=== PATIENT | female | born 1950 | race Caucasian/White ===

== ENCOUNTER → 2023-08-27 08:38 | Outpatient (REF) | payer MEDICARE, SELFPAY ==
[2023-08-27 09:28] LABS: % Basophils 0.7 % (0-2); % Eosinophils 3.1 % (0-6); % Immature Granulocytes 0.6 % (0-0.5); % Lymphocytes 24.6 % (20.5-51.1); % Monocytes 4.5 % (1.7-9.3); % Neutrophils 66.5 % (42.2-75.2); Absolute Basophils 0.1 10^3/uL (0-0.2); Absolute Eosinophils 0.3 10^3/uL (0-0.7); Absolute Immature Granulocytes 0.1 10^3/uL (0-0.05); Absolute Lymphocytes 2.2 10^3/uL (1.2-3.4); Absolute Monocytes 0.4 10^3/uL (0.1-0.6); Absolute Neutrophils 5.8 10^3/uL (1.4-6.5); Hemoglobin 11.8 g/dL (12.0-16.0); Mean Corp Hgb Conc. 32.8 g/dL (33.0-37.0); Mean Corpuscular Hgb 29.6 pg (27.0-31.0); Mean Corpuscular Volume 90.2 fL (81.0-99.0); Mean Platelet Volume 9.8 fL (7.4-10.4); Nucleated Red Blood Cells % 0 %; Platelet Count 267 10^3/uL (130-400); Red Blood Cell Count 3.99 10^6/uL (4.20-5.40); Red Cell Dist. Width 13.5 % (11.5-14.5); White Blood Cell Count 8.7 10^3/uL (4.8-10.8)
[2023-08-27 12:44] LABS: ALT (SGPT) 15 U/L (0-35); AST (SGOT) 26 U/L (14-36); Albumin 4.6 g/dl (3.5-5.0); Alkaline Phosphatase 96 U/L (38-126); Blood Urea Nitrogen 20 mg/dl (7-17); Calcium 9.4 mg/dl (8.4-10.2); Carbon Dioxide 31 mmol/L (22-30); Chloride 95 mmol/L (98-107); Glucose 110 mg/dl (70-99); HDL Cholesterol 44 mg/dl; LDL Cholesterol, Calculated 140 mg/dl; Potassium 4.1 mmol/L (3.5-5.1); Sodium 137 mmol/L (135-145); Total Bilirubin 0.7 mg/dl (0.2-1.3); Total Cholesterol 253 mg/dl (50-199); Total Protein 7.3 g/dl (6.3-8.2); Triglyceride 347 mg/dl (10-149); Very Low Density Lipoprotein 69 mg/dl (0-30); eGFR 59.49
== END ==
LOC: REG 08:38
PROVIDERS: ATTENDING PHYSICIAN Internal Medicine
DX: I10 Essential (primary) hypertension (principal); E78.5 Hyperlipidemia, unspecified; E53.8 Deficiency of other specified B group vitamins; Z68.33 Body mass index [BMI] 33.0-33.9, adult; Z00.01 Encounter for general adult medical examination with abnormal findings
CPT/HCPCS: 36415; 80053; 80061; 85025

== ENCOUNTER 2024-02-07 10:26 | Emergency (ER) | payer MEDICARE, SELFPAY ==
[2024-02-07 10:28] VITALS: BP 158/111
[2024-02-07] MEDS: TORADOL 30 MG IM (12:00)
[2024-02-07 12:06] VITALS: BP 141/81
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
[2024-02-07 14:18] VITALS: BP 133/72; BMI 30.1
[2024-02-07 15:22] VITALS: BP 144/83
[2024-02-07 15:36] VITALS: BP 144/83
== END 2024-02-07 15:37 | disposition home or self-care (01) ==
LOC: EMR 10:26
PROVIDERS: EMERGENCY PHYSICIAN Emergency Medicine; FAMILY PHYSICIAN Internal Medicine
DX: S43.402A Unspecified sprain of left shoulder joint, initial encounter (principal); W19.XXXA Unspecified fall, initial encounter; I10 Essential (primary) hypertension; Z90.49 Acquired absence of other specified parts of digestive tract
CPT/HCPCS: 99283; 96372; 73030

== ENCOUNTER 2024-02-09 23:27 | Inpatient (IN) | payer MEDICARE, SELFPAY ==
[2024-02-09 19:37] VITALS: BP 90/59
--- NOTE | 2024-02-09 19:38 | ED.GENMED ---
History of Present Illness
<SHAKEEL Bae - Last Filed: 02/10/24 00:42>
General
Chief Complaint: Weakness
Source: patient
Time Seen by Provider: 02/09/24 19:36
Nursing documentation reviewed up to this point in time: agreed with
History of Present Illness
History of Present Illness:
Patient is a 73 year old female with a PMH of RSD lower back arthritis and HTN presents to the ED with complaints of lower extremity weakness x 12 hours. She states this morning when she woke up feeling weak and not able to stand. Shortly after
while walking to the bathroom she got dizzy her legs gave out and she fell. She denies hitting her head and is not on blood thinners. Something like this has never happened before. She lost continence while she fell but states she hasn't been
incontinent since. Denies hematuria dysuria and urinary frequency. She admits to random lower extremity spasms throughout the day. Nothing exacerbates it and describes it as a twitching sensation in both of her legs. She also has mild tingling in
her feet. Patient denies chest pain palpitations sob headache nausea saddle anesthesia.
Patient has a history of RSD HTN and chronic lumbar arthritis which she takes medication for. She denies any alcohol or tobacco use.
Past History
<SHAKEEL Bae - Last Filed: 02/10/24 00:42>
Past History
ED Past Medical History: HTN and Other (RSD)
ED Past Surgical History: Appendectomy, Cholecystectomy, Tonsilectomy and Other
Social History
Tobacco: Non-smoker
Alcohol: None
Drug: None
Personal:
Living: with family
Employment: Retired
Review of Systems
<SHAKEEL Bae - Last Filed: 02/10/24 00:42>
Review of Systems
Constitutional: Reports no symptoms
Respiratory: Reports no symptoms
Cardiac: Reports no symptoms
ABD/GI: Reports no symptoms
: Reports incontinence
Musculoskeletal: Reports back pain
Neurological: Reports dizzy and weakness
Phy Exam
<RupeshSHAKEEL Frey - Last Filed: 02/10/24 00:42>
General Physical Exam
General Presentation: well appearing
General age: appears stated age
General Habitus: normal
General Mental: alert
Cardiovascular Exam
Cardiovascular Exam: regular rate/rhythm, no edema, no gallop, no JVD and no murmur
Pulmonary Exam
Pulmonary Exam: lungs clear, no respiratory distress, no rales, chest non tender, no crackles, no rhonchi, no stridor, no wheezing, no cough and decreased breath sounds
Sensory
Sensory Exam: intact (sensation intact to light touch in lower extremities b/l)
Musculoskeletal Exam
Musculoskeletal Exam: back pain and other (swelling in both feet, no pitting edema )
Course
<SHAKEEL Bae - Last Filed: 02/10/24 00:42>
Orders/Labs/Results
Orders:
Orders
02/09/24 19:51
Electrocardiogram (*1) Urgent
Reason for Study: Fatigue / Weakness
EKG- Treatment ONCE
02/09/24 19:59
Complete Blood Count/With Diff Urgent
Comprehensive Metabolic Panel Urgent
02/09/24 20:37
0.9% Sodium Chloride 1000 ml [Nss] 1,000 ml IV BOLUS
02/09/24 21:53
MR Lumbar Without Contrast Urgent
Comment:
Reason For Exam: LBP, Amb Dysfxn, Urinary Incont
Recent pill cam endoscopy?: No
02/09/24 21:57
Urinalysis Reflex To Culture Urgent
CXR2 [CR Chest - 2 Views ] Urgent
Comment:
Reason For Exam: Hypoxemia
02/09/24 23:04
Admit/Transfer Patient As Directed
Co-Sign Provider:
Level of Care: Inpatient admission
Assign to:: Telemetry
Physician / Group: Ras
Diagnosis: DANYEL, Metabolic Acidosis
Reason for Telemetry: Arrhythmia
Date to Stop Telemetry: 02/12/24
Time to Stop Telemetry: 11:00
Reason for Hospitalization: DANYEL, Metabolic Acidosis
Expected length of stay greater than two midnights?: Yes
ELOS- Estimated Length of Stay in days: 3
I certify the patient meets the requirements for IP care: Yes
PRN Pain Medication Management As Directed
May give lesser potent ordered pain med per pt: Yes
preference::
Protocol:: Medication orders for pain may be administered in a
manner that supports deferring to patient preference
when the pt is:
- Requesting an ordered lesser potent pain medication.
Least to most potent pain medications are defined
as: acetaminophen < NSAID < tramadol < opioids
(morphine, oxycodone, hydromorphone).
- Requesting a lesser dose of the same medication IF
ORDERED.
- Requesting a less intrusive route of administration
if both routes are prescribed by the provider (PO <
IV).
02/09/24 23:06
Code Status As Directed
Resuscitation Status: Full Code
02/09/24 23:12
Oxycodone [Roxicodone] 5 mg PO Q8HPRN PRN
02/09/24 23:56
Lactic Acid Urgent
02/10/24 00:31
0.9% Sodium Chloride 1000 ml [Nss] 1,000 ml IV 100 mls/hr
Polyethylene Glycol Powder [Miralax] 17 grams PO DAILY PRN
02/10/24 00:31
TSH Reflex To Free T4 Routine
Activity As Directed
Activity Level: Ambulate
With Assistance
Bladder Scan As Directed
Follow Bladder Retention/Intermittent Cath Algorithm?: Yes
PRN if no void in __ hours: 6
Frequency: Per Retention Algorithm
If Bladder Scan Result >: 400
then:: Straight cath
EKG with chest pain [ECG as needed] As Directed
ECG as needed for:: Chest Pain
I/O [Intake/ Output] As Directed
Frequency: Per unit guidelines
Neurological Checks As Directed
Frequency: q4h
Orthostatic Vital Signs As Directed
Orthostatic VS Frequency: BID
Straight Cath As Directed
Frequency: Per Retention Algorithm
Additional Instructions: straight cath as needed per acute urinary retention algorithm for 24 hrs
Additional Instructions: for bladder scan greater than 400 mL
Vital Signs As Directed
Frequency: Per unit guidelines
Weight As Directed
Frequency: Daily
Incentive Spirometry [Rx Incentive Spirometry] [RESP] Routine
Frequency: q1h while awake
Oxygen Therapy [O2 Therapy] [RESP] Routine
Titrate/Wean O2 to maintain O2 sat greater than (%): 94
Ot Eval And Treat Routine
PT Consult [Pt Eval And Treat] Routine
Activity Level: Ambulate
With Assistance
DX Deep Vein Thrombosis Video Routine
02/10/24 Breakfast
Regular
Basic Metabolic Panel IN AM
Complete Blood Count/No Diff IN AM
Magnesium IN AM
Phosphorus IN AM
02/10/24 08:00
Acetaminophen [Tylenol] 1,000 mg PO TID
Docusate Sodium [Colace] 100 mg PO BID
Oxycodone Controlled Release [Oxycontin (Controlled Release)] 20 mg PO TID
02/10/24 18:00
Enoxaparin Sodium [Lovenox] 40 mg SC QPM
02/10/24 22:00
Amitriptyline [Elavil] 50 mg PO HS
Sennosides [Senokot] 17.2 mg PO HS
02/12/24 11:00
DC Protocol for Telemetry ONCE
Abnormal Lab Results
02/09/24
19:59
WBC 16.3 H 10^3/uL
(4.8-10.8)
RBC 3.86 L 10^6/uL
(4.20-5.40)
Hgb 11.5 L g/dL
(12.0-16.0)
Hct 34.2 L %
(37.0-47.0)
Abs Immat Gran (auto) 0.1 H 10^3/uL
(0-0.05)
Absolute Neuts (auto) 13.5 H 10^3/uL
(1.4-6.5)
Absolute Monos (auto) 0.8 H 10^3/uL
(0.1-0.6)
Neutrophils % 82.7 H %
(42.2-75.2)
Lymphocytes % 9.7 L %
(20.5-51.1)
Chloride 95 L mmol/L
(98-107)
BUN 57 H mg/dl
(7-17)
Creatinine 4.1 H* mg/dL
(0.6-1.0)
Glucose 125 H mg/dl
(70-99)
AST 111 H U/L
(14-36)
02/09/24 19:59
02/09/24 19:59
Vital Signs
Initial and Last Documented VS:
Initial Vital Signs
Temp Pulse Resp BP Pulse Ox
98.9 F 91 16 90/59 88
02/09/24 19:37 02/09/24 19:37 02/09/24 19:37 02/09/24 19:37 02/09/24 19:37
Last Documented Vital Signs
Temp Pulse Resp BP Pulse Ox
99.5 F 86 17 116/65 98
02/10/24 00:33 02/10/24 00:33 02/10/24 00:33 02/10/24 00:33 02/10/24 00:33
<Alvaro Overton, - Last Filed: 02/09/24 22:00>
Orders/Labs/Results
Orders:
Orders
02/09/24 19:51
Electrocardiogram (*1) Urgent
Reason for Study: Fatigue / Weakness
EKG- Treatment ONCE
02/09/24 19:59
Complete Blood Count/With Diff Urgent
Comprehensive Metabolic Panel Urgent
02/09/24 20:37
0.9% Sodium Chloride 1000 ml [Nss] 1,000 ml IV BOLUS
02/09/24 21:53
MR Lumbar Without Contrast Urgent
Comment:
Reason For Exam: LBP, Amb Dysfxn, Urinary Incont
Recent pill cam endoscopy?: No
02/09/24 21:57
Urinalysis Reflex To Culture Urgent
CXR2 [CR Chest - 2 Views ] Urgent
Comment:
Reason For Exam: Hypoxemia
02/09/24 23:04
Admit/Transfer Patient As Directed
Co-Sign Provider:
Level of Care: Inpatient admission
Assign to:: Telemetry
Physician / Group: Ras
Diagnosis: DANYEL, Metabolic Acidosis
Reason for Telemetry: Arrhythmia
Date to Stop Telemetry: 02/12/24
Time to Stop Telemetry: 11:00
Reason for Hospitalization: DANYEL, Metabolic Acidosis
Expected length of stay greater than two midnights?: Yes
ELOS- Estimated Length of Stay in days: 3
I certify the patient meets the requirements for IP care: Yes
PRN Pain Medication Management As Directed
May give lesser potent ordered pain med per pt: Yes
preference::
Protocol:: Medication orders for pain may be administered in a
manner that supports deferring to patient preference
when the pt is:
- Requesting an ordered lesser potent pain medication.
Least to most potent pain medications are defined
as: acetaminophen < NSAID < tramadol < opioids
(morphine, oxycodone, hydromorphone).
- Requesting a lesser dose of the same medication IF
ORDERED.
- Requesting a less intrusive route of administration
if both routes are prescribed by the provider (PO <
IV).
02/09/24 23:06
Code Status As Directed
Resuscitation Status: Full Code
02/09/24 23:12
Oxycodone [Roxicodone] 5 mg PO Q8HPRN PRN
02/09/24 23:56
Lactic Acid Urgent
02/10/24 00:31
0.9% Sodium Chloride 1000 ml [Nss] 1,000 ml IV 100 mls/hr
Polyethylene Glycol Powder [Miralax] 17 grams PO DAILY PRN
02/10/24 00:31
TSH Reflex To Free T4 Routine
Activity As Directed
Activity Level: Ambulate
With Assistance
Bladder Scan As Directed
Follow Bladder Retention/Intermittent Cath Algorithm?: Yes
PRN if no void in __ hours: 6
Frequency: Per Retention Algorithm
If Bladder Scan Result >: 400
then:: Straight cath
EKG with chest pain [ECG as needed] As Directed
ECG as needed for:: Chest Pain
I/O [Intake/ Output] As Directed
Frequency: Per unit guidelines
Neurological Checks As Directed
Frequency: q4h
Orthostatic Vital Signs As Directed
Orthostatic VS Frequency: BID
Straight Cath As Directed
Frequency: Per Retention Algorithm
Additional Instructions: straight cath as needed per acute urinary retention algorithm for 24 hrs
Additional Instructions: for bladder scan greater than 400 mL
Vital Signs As Directed
Frequency: Per unit guidelines
Weight As Directed
Frequency: Daily
Incentive Spirometry [Rx Incentive Spirometry] [RESP] Routine
Frequency: q1h while awake
Oxygen Therapy [O2 Therapy] [RESP] Routine
Titrate/Wean O2 to maintain O2 sat greater than (%): 94
Ot Eval And Treat Routine
PT Consult [Pt Eval And Treat] Routine
Activity Level: Ambulate
With Assistance
DX Deep Vein Thrombosis Video Routine
02/10/24 Breakfast
Regular
Basic Metabolic Panel IN AM
Complete Blood Count/No Diff IN AM
Magnesium IN AM
Phosphorus IN AM
02/10/24 08:00
Acetaminophen [Tylenol] 1,000 mg PO TID
Docusate Sodium [Colace] 100 mg PO BID
Oxycodone Controlled Release [Oxycontin (Controlled Release)] 20 mg PO TID
02/10/24 18:00
Enoxaparin Sodium [Lovenox] 40 mg SC QPM
02/10/24 22:00
Amitriptyline [Elavil] 50 mg PO HS
Sennosides [Senokot] 17.2 mg PO HS
02/12/24 11:00
DC Protocol for Telemetry ONCE
Abnormal Lab Results
02/09/24
19:59
WBC 16.3 H 10^3/uL
(4.8-10.8)
RBC 3.86 L 10^6/uL
(4.20-5.40)
Hgb 11.5 L g/dL
(12.0-16.0)
Hct 34.2 L %
(37.0-47.0)
Abs Immat Gran (auto) 0.1 H 10^3/uL
(0-0.05)
Absolute Neuts (auto) 13.5 H 10^3/uL
(1.4-6.5)
Absolute Monos (auto) 0.8 H 10^3/uL
(0.1-0.6)
Neutrophils % 82.7 H %
(42.2-75.2)
Lymphocytes % 9.7 L %
(20.5-51.1)
Chloride 95 L mmol/L
(98-107)
BUN 57 H mg/dl
(7-17)
Creatinine 4.1 H* mg/dL
(0.6-1.0)
Glucose 125 H mg/dl
(70-99)
AST 111 H U/L
(14-36)
02/09/24 19:59
02/09/24 19:59
Vital Signs
Initial and Last Documented VS:
Initial Vital Signs
Temp Pulse Resp BP Pulse Ox
98.9 F 91 16 90/59 88
02/09/24 19:37 02/09/24 19:37 02/09/24 19:37 02/09/24 19:37 02/09/24 19:37
Last Documented Vital Signs
Temp Pulse Resp BP Pulse Ox
99.5 F 86 17 116/65 98
02/10/24 00:33 02/10/24 00:33 02/10/24 00:33 02/10/24 00:33 02/10/24 00:33
<SHAKEEL Bae - Last Filed: 02/10/24 00:42>
MDM/Problems Addressed
Differential Diagnosis Includes:
RSD exacerbation, kidney failure, PAD, MS, arthritis, dehydration, cauda equina
MDM/Problems Addressed:
order labs, monitor symptoms
<SHAKEEL Bae - Last Filed: 02/10/24 00:42>
*Critical Care Note
Total Time (30-74mins, 75-104mins- exclusive of procedures): Not Applicable
ED Attending Note
<SHAKEEL Bae - Last Filed: 02/10/24 00:42>
-
Portions of this chart may have been created with voice recognition software.� Occasional wrong word or��sound alike� substitutions may have occurred due to the inherent limitations of voice recognition software.
<Alvaro Overton DO - Last Filed: 02/09/24 22:00>
ED Attending Note
Patient seen and examined by attending physician: Yes
I performed the substantive portion of visit, reviewed & personally made and approve the management plan that is documented in note by myself or PEPE.: Yes
ED Attending Note:
Pleasant 73-year-old female presents to the emergency department with increased weakness and inability to walk. Patient has had lower back pain since age 11. She states that she has had exacerbation of low back pain for the last week. Patient
started to fall this morning due to the weakness but was able to prevent the fall. She is concerned because she awakened with urinary incontinence this morning. Denies fever, chills, nausea or vomiting. Patient was seen in conjunction with the PA
student. I have reviewed and agree with the history and treatment plan presented. On my independent physical exam, patient is awake, alert, and oriented x3. Minimal acute distress distressed while at rest. With movement she has increased low
back pain. Rectal exam performed in the presence of female nursing had good rectal tone.
Spoke with Dr. Geovani Ariza regarding MRI. He agreed with the need for an MRI. MRI of the lumbar spine without IV contrast ordered. Without IV contrast because patient did not have previous history of spinal surgery.
Discharge Plan
Departure
Patient Disposition: Admit
Date of Disposition: 02/09/24
Time of Disposition: 21:57
Presentation/result/management discussed w/ accepting MD/DO: Hospitalist
Patient with high blood pressure during this ER visit?: Yes
Condition: Fair
Discharge Problem:
Low back pain, Acute renal failure (ARF), Weakness, Ambulatory dysfunction
Interventions
Interventions:
*Risk Screen - Suicide Last Done: 02/09/24 19:37
*General Assessment Last Done: 02/09/24 19:37
*Neglect/Abuse Screening Last Done: 02/09/24 19:37
ED- Fall Risk Assessment Last Done: 02/09/24 19:48
*ED COVID-19 Vaccine History Last Done: 02/09/24 19:37
*Nursing Disposition Last Done: 02/10/24 00:24
ED- Cardiac Assessment Last Done: 02/09/24 19:48
ED-Musculoskeletal Assessment Last Done: 02/09/24 19:48
ED- Neurological Assessment Last Done: 02/09/24 19:48
ED- Pulmonary Assessment Last Done: 02/09/24 19:48
Discharge Date and Time
Discharge Date/Time: 02/10/24 00:24
[2024-02-09 19:41] VITALS: BP 90/59
[2024-02-09 19:50] VITALS: BMI 33.7
[2024-02-09 20:01] VITALS: BP 93/61
[2024-02-09 20:05] LABS: % Basophils 0.5 % (0-2); % Eosinophils 1.6 % (0-6); % Immature Granulocytes 0.4 % (0-0.5); % Lymphocytes 9.7 % (20.5-51.1); % Monocytes 5.1 % (1.7-9.3); % Neutrophils 82.7 % (42.2-75.2); Absolute Basophils 0.1 10^3/uL (0-0.2); Absolute Eosinophils 0.3 10^3/uL (0-0.7); Absolute Immature Granulocytes 0.1 10^3/uL (0-0.05); Absolute Lymphocytes 1.6 10^3/uL (1.2-3.4); Absolute Monocytes 0.8 10^3/uL (0.1-0.6); Absolute Neutrophils 13.5 10^3/uL (1.4-6.5); Hematocrit 34.2 % (37.0-47.0); Hemoglobin 11.5 g/dL (12.0-16.0); Mean Corp Hgb Conc. 33.6 g/dL (33.0-37.0); Mean Corpuscular Hgb 29.8 pg (27.0-31.0); Mean Corpuscular Volume 88.6 fL (81.0-99.0); Mean Platelet Volume 10.1 fL (7.4-10.4); Nucleated Red Blood Cells % 0 %; Platelet Count 246 10^3/uL (130-400); Red Blood Cell Count 3.86 10^6/uL (4.20-5.40); Red Cell Dist. Width 13.7 % (11.5-14.5); White Blood Cell Count 16.3 10^3/uL (4.8-10.8)
[2024-02-09 20:23] LABS: ALT (SGPT) 33 U/L (0-35); AST (SGOT) 111 U/L (14-36); Albumin 4.7 g/dl (3.5-5.0); Alkaline Phosphatase 108 U/L (38-126); Blood Urea Nitrogen 57 mg/dl (7-17); Calcium 8.7 mg/dl (8.4-10.2); Carbon Dioxide 23 mmol/L (22-30); Chloride 95 mmol/L (98-107); Estimated Creatinine Clearance 14 ml/min; Glucose 125 mg/dl (70-99); Potassium 4.2 mmol/L (3.5-5.1); Sodium 139 mmol/L (135-145); Total Bilirubin 0.9 mg/dl (0.2-1.3); Total Protein 7.2 g/dl (6.3-8.2); eGFR 10.87
[2024-02-09 21:00] VITALS: BP 103/64
[2024-02-09] MEDS: NSS 1000 IV (21:01)
[2024-02-09 22:00] VITALS: BP 98/50
--- NOTE | 2024-02-09 22:19 | HPS.HSE ---
Family Physician
-
Family Physician: Marlon Hooks
Chief Complaint
-
Fall / Weakness
History of Present Illness
Patient is a 73y F with PMH significant for reflex sympathetic dystrophy, chronic opioid dependence and history of breast cancer who presents to ED complaining of weakness and fall at home. History obtained from patient and her at home.
Patient was seen in the ED here on Saturday after fall at home in which she injured her L shoulder. Evaluation was unremarkable at that time and patient was discharged to home with a prescription for diclofenac which she has been taking twice daily
since that time. This evening patient stood to go to the bathroom and was assisting her. He had difficulty getting a good hold on her due to her chronic RUE pain and her new L shoulder pain.
states that patient became 'spastic' and 'started shaking' and he could not hold her. She fell backwards and landed on her buttocks. She did not strike her head. She did not lose consciousness.
was unable to help her back up and EMS was called.
In the ED, patient continues to complain of intermittent spasms. She complains of chronic pain in the R hand and the low back - not significantly changed from her baseline.
She denies any new medication - other than the diclofenac.
Patient denies any recent symptoms of illness including fever / chills, cough / SOB, N/V/D or dysuria.
Patient has been unable to void since presentation to the ED. She denies any prior issues with incontinence.
Medical History
Past Medical History
Past Medical History: Reports Other
Additional Past Medical History:
Reflex Sympathetic Dystrophy
Chronic Pain Syndrome
Chronic Opioid Dependence
Breast Cancer s/p Mastectomy
Chronic RUE Lymphedema
Chronic Back Pain
Hypertension
Anxiety / Depression
Gout
Past Surgical History: Reports Other
Additional Past Surgical History:
Right Mastectomy / Axillary Dissection
Cholecystectomy
Appendectomy
T&A
Social History
Tobacco: Non-smoker
Alcohol: None
Drug: None
Personal:
Living: With Family
Family History
Family History: Not pertinent
Allergies / Home Medications
Allergies reflects when Allergies were last updated in [facility].
Home Medications with original date entered in [facility]
Allergy/Medication List:
Allergies
Allergy/AdvReac Type Severity Reaction Status Date / Time
nortriptyline HCl Allergy Tongue Verified 02/09/24 19:37
[From Pamelor] Swelling
Home Medications
acebutolol 200 mg capsule 200 mg PO TID Heart disease/condition 08/18/22
allopurinol 100 mg tablet 100 mg PO DAILY Gout 08/18/22
levocetirizine 5 mg tablet (Xyzal) 5 mg PO DAILY PRN allergies 08/18/22
amitriptyline 100 mg tablet 100 mg PO HS Mental Health/Anxiety 02/12/23
amoxicillin 500 mg capsule 500 mg PO TID Infection 02/12/23
cyanocobalamin (vitamin B-12) 1,000 mcg/mL injection solution 1,000 mcg SC MONTHLY Supplement 02/12/23
ergocalciferol (vitamin D2) 1,250 mcg (50,000 unit) capsule 1,250 mcg PO WE Supplement 02/12/23
furosemide 40 mg tablet 40 mg PO BID Fluid Retention/Swelling 02/12/23
gabapentin 300 mg capsule 300 mg PO TID Pain 02/12/23
oxycodone 20 mg tablet,crush resistant,extended release 12 hr (OxyContin) 20 mg PO TID Pain 02/12/23
oxycodone-acetaminophen 10 mg-325 mg tablet 1 tab PO Q8H PRN breakthrough pain 02/12/23
zolpidem 10 mg tablet 10 mg PO HS PRN sleep 02/12/23
diclofenac sodium 75 mg tablet,delayed release 75 mg PO BID #14 tabs 02/07/24
Patient is unable to confirm all current meds / doses.
States 'Its the same as in the computer. Nothing is changed.'
Review of Systems
-
History Source: Patient
A 12 point ROS was completed and negative except as noted: Yes
Constitutional: Reports Fatigue; Denies Fever or Chills
EENT: Denies Sore Throat
Respiratory: Denies Cough or Trouble Breathing
Cardiac: Denies Chest Pain or Palpitations
Abdomen/GI: Denies Abdominal Pain, Nausea, Vomiting or Diarrhea
: Reports Incontinence (Woke this AM incontinent. Unable to void this evening.); Denies Dysuria or Frequency
Musculoskeletal: Reports Joint Pain, Edema and Other (Spasms)
Neurological: Reports Weakness; Denies Dizzy or Numbness
Physical Exam
Vital Signs
Vital Signs
Temp Pulse Resp BP Pulse Ox
98.9 F 81 19 103/64 98
02/09/24 19:37 02/09/24 21:45 02/09/24 21:45 02/09/24 21:00 02/09/24 21:45
Physical Exam
General: Other (73y F in no acute distress.)
HEENT: Moist mucous membranes and PERRLA
Respiratory: Other (Decreased at bases - otherwise clear.)
Cardiac: S1/S2 and Regular Rhythm; No Murmur
GI: Soft, Non Tender, Non Distended and Normal Bowel Sounds
Musculoskeletal: No Clubbing, No Cyanosis and Other (2+ pitting edema b/l LEs and RUE. Compression glove in place over the R hand.)
Neuro: AO x 3 and Other (Generalized weakness. No focal deficits.)
Laboratory Results
-
02/09/24 19:59
02/09/24 19:59
Laboratory Results
Total Bilirubin 0.9 mg/dl (0.2-1.3) 02/09/24 19:59
AST 111 U/L (14-36) H 02/09/24 19:59
ALT 33 U/L (0-35) 02/09/24 19:59
Alkaline Phosphatase 108 U/L (38-126) 02/09/24 19:59
Impression/Plan
-
A/P: Patient is a 73y F with PMH significant for chronic pain / RSD who presents to ED for evaluation s/p fall at home this evening.
DANYEL
Anion Gap Metabolic Acidosis
- Admit for further evaluation and treatment.
- Patient presents with SCR = 4.1 compared to baseline of 1.0.
- Suspect DANYEL due to NSAID use and volume depletion / prerenal azotemia.
- Hold further NSAIDs and other nephrotoxic agents.
- IVF support overnight / avoid hypotension.
- Bladder scan protocol and cath / Alexandra if evidence of retention.
- Anion gap on admission = 21.
- Check lactate. IVFs as noted above.
- Follow for improvement / return to baseline renal function.
Acute Hypoxemic Respiratory Insufficiency
- Unclear etiology. CXR with elevated R hemidiaphragm. No focal infiltrates.
- No acute / recent respiratory complaints and patient denies any cough / dyspnea.
- ? med effect due to increased pain meds after recent fall.
- Minimize sedating meds as able.
- O2 support as needed.
- Incentive spirometry.
- Follow for any new / worsening symptoms.
Weakness / Fall at Home
Spasticity
- ? etiology of new / worsened symptoms.
- No focal weakness appreciated on exam.
- Doubt cauda equina with good rectal tone, etc.
- MRI L-spine pending for later this AM.
- Follow for any new complaints, etc.
- PT / OT evaluations.
- Avoid sedating meds as noted above.
Leukocytosis
- ? stress response versus volume depletion versus other.
- Afebrile and without any acute infectious symptoms.
- Observe off of abx for now.
- Follow temperature curve, etc.
RSD
Chronic Pain Syndrome
Chronic Opioid Dependence
- Typical pain in R hand and low back per patient.
- Recent increase in pain in the L shoulder after fall 02/06.
- Continue chronic pain meds - but attempt to decrease dose / frequency given relative hypotension, weakness, etc.
- Follow-up with usual Pain Management as an outpatient.
DVT Prophylaxis: Lovenox
Code Status: Full
[2024-02-09 23:10] VITALS: BP 93/56
[2024-02-09] MEDS: ROXICODONE 5 MG PO (23:17)
[2024-02-10] VITALS (13 sets, daily range): BP systolic 88–140; BP diastolic 47–77; PULSE 75–100; O2SAT 95; BMI 34.3; BMI 34.2
[2024-02-10 00:16] LABS: Lactic Acid 0.7 mmol/L (0.7-2.0)
[2024-02-10] MEDS: NSS 1000 IV ×3 (00:40→23:17)
--- NOTE | 2024-02-10 02:00 | PTCARENOTE ---
Pt arrived on 2S at 00:15 dx DANYEL Metabolic Acidosis. PMH Chronic Back Pain, HTN, UTI, Ambulatory Dysfunction, Breast Cancer, RSD of Right hand with HUSSAIN restriction. Pt unable to urinate in bedpan. Pt stood by the bed with a rolling walker for Ortho
V/S with difficulty. Pt Aox3, but forgetful. Pt's bed ia in a low position & call light in reach.
[2024-02-10 03:09] LABS: Urine Albumin Trace (Neg - Trace); Urine Bilirubin 1+ (Negative); Urine Character Clear (Clear); Urine Color Yellow; Urine Glucose Negative (Negative); Urine Ketone Trace (Negative); Urine Leukocyte Trace (Negative); Urine Nitrite Negative (Negative); Urine Occult Blood 1+ (Negative); Urine Urobilinogen 1+ (Neg - 1+)
[2024-02-10 03:26] LABS: Urine Bacteria Moderate (Negative)
[2024-02-10] MEDS: TYLENOL 650 MG PO (05:44)
[2024-02-10] MEDS: OXYCONTIN (CONTROLLED RELEASE) 20 MG PO ×3 (08:10→23:16)
[2024-02-10] MEDS: COLACE 100 MG PO ×2 (08:10→20:51)
[2024-02-10 08:13] LABS: Hematocrit 30.1 % (37.0-47.0); Hemoglobin 9.9 g/dL (12.0-16.0); Mean Corp Hgb Conc. 32.9 g/dL (33.0-37.0); Mean Corpuscular Hgb 29.6 pg (27.0-31.0); Mean Corpuscular Volume 89.9 fL (81.0-99.0); Mean Platelet Volume 10.6 fL (7.4-10.4); Platelet Count 211 10^3/uL (130-400); Red Blood Cell Count 3.35 10^6/uL (4.20-5.40); Red Cell Dist. Width 13.4 % (11.5-14.5); White Blood Cell Count 13.4 10^3/uL (4.8-10.8)
[2024-02-10 08:34] LABS: Blood Urea Nitrogen 53 mg/dl (7-17); Calcium 7.7 mg/dl (8.4-10.2); Carbon Dioxide 27 mmol/L (22-30); Chloride 99 mmol/L (98-107); Estimated Creatinine Clearance 20 ml/min; Glucose 94 mg/dl (70-99); Magnesium 2.3 mg/dl (1.6-2.3); Phosphorus 4.1 mg/dl (2.5-4.5); Potassium 3.9 mmol/L (3.5-5.1); Sodium 139 mmol/L (135-145); eGFR 17.18
[2024-02-10 09:05] LABS: TSH Reflex To Free T4 1.54 uIU/ml (0.47-4.68)
[2024-02-10] MEDS: TYLENOL 1000 MG PO ×3 (09:44→22:33)
[2024-02-10 10:24] LABS: Urine Sodium 13 mmol/L (30-90)
--- NOTE | 2024-02-10 11:56 | W.PN.HOSP.TC ---
Today's Communication/Plan
-
Trend Cr
IVF for today
Renal/bladder US
IV steroids
start midodrine
Assessment / Plan
Assessment / Plan
General: morbidly obese, sitting in chair,
HEENT: Moist mucous membranes and PERRLA
Respiratory: dec bs
Cardiac: S1/S2 and Regular Rhythm; No Murmur
GI: Soft, Non Tender, Non Distended and Normal Bowel Sounds
Musculoskeletal: No Clubbing, No Cyanosis and Other (2+ pitting edema b/l LEs and RUE. Compression glove in place over the R hand.)
Neuro: AO x 3 and Other (Generalized weakness. No focal deficits.)
A/P: Patient is a 73y F with PMH significant for chronic pain / RSD who presents to ED for evaluation s/p fall at home this evening.
DANYEL
Anion Gap Metabolic Acidosis
- Patient presents with SCR = 4.1 on admission. Now at 2.8 compared to baseline of 1.0.
- Hold further NSAIDs and other nephrotoxic agents.
- IVF support overnight / avoid hypotension.
- Bladder scan protocol and cath / Alexandra if evidence of retention.
- Follow for improvement / return to baseline renal function.
- Check urine studies and urine eos (none checked on admission) and Urine sample obtained while IVF
- Check renal bladder US.
- Bicarb improving-hold po bicarb
Hypotension
-started midodrine
Acute Hypoxemic Respiratory Insufficiency
- Unclear etiology. CXR with elevated R hemidiaphragm. No focal infiltrates.
- No acute / recent respiratory complaints and patient denies any cough / dyspnea.
- ? med effect due to increased pain meds after recent fall.
- Minimize sedating meds as able.
- O2 support as needed. on room air.
- Incentive spirometry.
- Follow for any new / worsening symptoms.
Weakness / Fall at Home
Spasticity
- ? etiology of new / worsened symptoms.
- No focal weakness appreciated on exam.
- Doubt cauda equina with good rectal tone, etc.
- MRI L-spine noted SEVERE ACUTE DISCOGENIC DEGENERATIVE DISEASE at L1/L2 with a moderate amount of acute bone marrow edema in the adjacent endplates and a central disc herniation causing MODERATE CENTRAL CANAL STENOSIS which has increased since
07/10/2013.
- Follow for any new complaints, etc.
- PT / OT evaluations. Recs SNF on discharge.
- Avoid sedating meds as noted above.
- Trial of steroids.
Leukocytosis
- ? stress response versus volume depletion versus other.
- Afebrile and without any acute infectious symptoms.
- Observe off of abx for now.
- Follow temperature curve, etc. WBC downtrending. afebrile
Chronic LE edema
-on lasix 40mg BID at home -on hold for now
-Sees Dr. Kraus as outpatient.
-Compression PRECIOUS therapy B/L
RSD
Chronic Pain Syndrome
Chronic Opioid Dependence
- Typical pain in R hand and low back per patient.
- Recent increase in pain in the L shoulder after fall 02/06.
- Continue chronic pain meds - but attempt to decrease dose / frequency given relative hypotension, weakness, etc.
- Follow-up with usual Pain Management as an outpatient.
DVT Prophylaxis: Lovenox
Code Status: Full
d/w with spouse at bedside in details
Anticipated Discharge: > 48 hours
Subjective/Interval History
-
Date of Service: February 10, 2024
states of severe back pain/spasms
states hx of arthritis
Objective Data
-
Labs:
Laboratory Results
02/10/24
07:42
WBC 13.4 H
Hgb 9.9 L
Hct 30.1 L
Plt Count 211
Sodium 139
Potassium 3.9
Chloride 99
Carbon Dioxide 27
BUN 53 H
Creatinine 2.8 H
Glucose 94
Calcium 7.7 L
Vital Signs:
Vital Signs
Temp Pulse Resp BP Pulse Ox
99.2 F 85 14 88/47 90
02/10/24 11:27 02/10/24 11:27 02/10/24 11:27 02/10/24 11:27 02/10/24 11:27
I&O
02/09/24 02/10/24 02/11/24
06:59 06:59 06:59
Intake Total 320 / 320
Output Total 500 / 500
Balance -180 / -180
Data Reviewed
-
Total Time Spent with Patient (in minutes): 55
[2024-02-10] MEDS: DECADRON 4 MG IV (12:34)
[2024-02-10] MEDS: ROXICODONE 5 MG PO (14:52)
[2024-02-10] MEDS: ProAmatine 5 MG PO (15:08)
[2024-02-10 15:36] LABS: Body Fluid for Eosinophils No Eosinophils seen
--- NOTE | 2024-02-10 16:13 | CM ---
Pt seen at bedside. Pt lives w/ spouse in a two story home.
Pt uses walker at home. Spouse assists with personal care and descending stairs, notes that she crawls up the stairs
SNF history, has had [facility] in the past, pt doesn't recall agency
Pt is rec SNF, CM provided PAC list. Pt stated she prefers home with PT. CM explained to pt that she is currently a 2 person assist. Pt continuing to decline as she provided care to spouse at home.
Attempted call to daughter re d/c plan. Unable to leave message, voicemail is full.
Pt was seen previously in ED on 02/06 secondary fall. [facility] protective report was made due to safety concerns in the home. Called w/ Blank ([phone]), AAA supervisor furnace process who confirmed pt remains open and following.
Plan: CM will follow up w/ daughter re d/c plan and SNF referral
--- NOTE | 2024-02-10 17:15 | PTCARENOTE ---
Telephone report given to 4E YING Apodaca @16:35, Transport brought brought to room 403 bed 1 in bed with belongings and @17:08; transported patient on telemetry, called Katelyn on 4E and requested that our conveyor monitor be returned upon her
arrival.
[2024-02-10] MEDS: ProAmatine PO (18:05)
[2024-02-10] MEDS: LOVENOX 30 MG SC (18:08)
[2024-02-10] MEDS: ELAVIL 50 MG PO (22:32)
[2024-02-10] MEDS: SENOKOT 17.2 MG PO (22:34)
[2024-02-11] VITALS (7 sets, daily range): BP systolic 138–188; BP diastolic 73–92; PULSE 82–83; BMI 35.2
[2024-02-11 07:43] LABS: % Basophils 0.2 % (0-2); % Eosinophils 0.1 % (0-6); % Lymphocytes 6.7 % (20.5-51.1); % Monocytes 1.2 % (1.7-9.3); % Neutrophils 90.8 % (42.2-75.2); Absolute Immature Granulocytes 0.1 10^3/uL (0-0.05); Absolute Lymphocytes 0.9 10^3/uL (1.2-3.4); Absolute Monocytes 0.2 10^3/uL (0.1-0.6); Hematocrit 31.3 % (37.0-47.0); Hemoglobin 10.3 g/dL (12.0-16.0); Mean Corp Hgb Conc. 32.9 g/dL (33.0-37.0); Mean Corpuscular Hgb 30.3 pg (27.0-31.0); Mean Corpuscular Volume 92.1 fL (81.0-99.0); Mean Platelet Volume 10.9 fL (7.4-10.4); Nucleated Red Blood Cells % 0 %; Platelet Count 194 10^3/uL (130-400); Red Cell Dist. Width 13.4 % (11.5-14.5); White Blood Cell Count 13.2 10^3/uL (4.8-10.8)
[2024-02-11 08:11] LABS: Blood Urea Nitrogen 41 mg/dl (7-17); Carbon Dioxide 26 mmol/L (22-30); Chloride 103 mmol/L (98-107); Estimated Creatinine Clearance 43 ml/min; Glucose 126 mg/dl (70-99); Potassium 4.5 mmol/L (3.5-5.1); Sodium 141 mmol/L (135-145); eGFR 43.15
[2024-02-11] MEDS: COLACE PO ×2 (10:30→10:41)
[2024-02-11] MEDS: OXYCONTIN (CONTROLLED RELEASE) 20 MG PO ×3 (10:30→22:31)
[2024-02-11] MEDS: TYLENOL 1000 MG PO ×3 (10:30→22:31)
[2024-02-11] MEDS: NSS IV (10:31)
[2024-02-11] MEDS: ProAmatine PO (10:31)
--- NOTE | 2024-02-11 11:38 | W.PN.HOSP.TC ---
Today's Communication/Plan
-
IV steroids trial
OOB/PT
Trend cr
observe off IVF
Assessment / Plan
Assessment / Plan
General: morbidly obese, sitting in chair,
HEENT: Moist mucous membranes and PERRLA
Respiratory: dec bs
Cardiac: S1/S2 and Regular Rhythm; No Murmur
GI: Soft, Non Tender, Non Distended and Normal Bowel Sounds
with Alexandra catheter
Musculoskeletal: No Clubbing, No Cyanosis and Other (2+ pitting edema b/l LEs and RUE. Compression glove in place over the R hand.)
Neuro: AO x 3 and Other (Generalized weakness. No focal deficits.)
A/P: Patient is a 73y F with PMH significant for chronic pain / RSD who presents to ED for evaluation s/p fall at home this evening.
DANYEL
Anion Gap Metabolic Acidosis
Left renal lesion
- Elevated creatinine likely to be multifactorial while being on diclofenac, urinary retention, diuretics
- Patient presents with SCR = 4.1 on admission. Now at 1.3 compared to baseline of 1.0.
- Hold further NSAIDs and other nephrotoxic agents.
- DC further IV fluids and observe.
- Renal bladder US with renal lesion.
- Bicarb improving-hold po bicarb
Hypotension
-started midodrine. BP stabilized and DC further midodrine.
Acute Hypoxemic Respiratory Insufficiency
- Unclear etiology. CXR with elevated R hemidiaphragm. No focal infiltrates.
- No acute / recent respiratory complaints and patient denies any cough / dyspnea.
- ? med effect due to increased pain meds after recent fall.
- Minimize sedating meds as able.
- O2 support as needed. on room air.
- Incentive spirometry.
Weakness / Fall at Home
Spasticity
- ? etiology of new / worsened symptoms.
- No focal weakness appreciated on exam.
- Doubt cauda equina with good rectal tone, etc.
- MRI L-spine noted SEVERE ACUTE DISCOGENIC DEGENERATIVE DISEASE at L1/L2 with a moderate amount of acute bone marrow edema in the adjacent endplates and a central disc herniation causing MODERATE CENTRAL CANAL STENOSIS which has increased since
07/10/2013.
- Follow for any new complaints, etc.
- PT / OT evaluations. Recs SNF on discharge.
- Avoid sedating meds as noted above.
- Trial of steroids.
Leukocytosis
- ? stress response versus volume depletion versus other.
- Afebrile and without any acute infectious symptoms.
- Observe off of abx for now.
- Follow temperature curve, etc. WBC downtrending. afebrile
Chronic LE edema
-on lasix 40mg BID at home -on hold for now
-Sees Dr. Kraus as outpatient.
-Compression PRECIOUS therapy B/L
RSD
Chronic Pain Syndrome
Chronic Opioid Dependence
- Typical pain in R hand and low back per patient.
- Recent increase in pain in the L shoulder after fall 02/06.
- Continue chronic pain meds - but attempt to decrease dose / frequency given relative hypotension, weakness, etc.
- Follow-up with usual Pain Management as an outpatient.
DVT Prophylaxis: Lovenox
Code Status: Full
d/w with daughter at bedside in details
PT/OT-SNF. Cm aware.
Anticipated Discharge: > 48 hours
Subjective/Interval History
-
Date of Service: February 11, 2024
Overlapping urinary retention requiring Alexandra catheter placement
Objective Data
-
Labs:
Laboratory Results
02/11/24
06:26
WBC 13.2 H
Hgb 10.3 L
Hct 31.3 L
Plt Count 194
Sodium 141
Potassium 4.5
Chloride 103
Carbon Dioxide 26
BUN 41 H
Creatinine 1.3 H
Glucose 126 H
Calcium 8.0 L
Vital Signs:
Vital Signs
Temp Pulse Resp BP Pulse Ox
98.6 F 76 22 150/91 92
02/11/24 07:07 02/11/24 07:07 02/11/24 07:07 02/11/24 07:07 02/11/24 07:07
I&O
02/10/24 02/11/24 02/12/24
06:59 06:59 06:59
Intake Total 320 / 320 700 / 700
Output Total 500 / 500 1160 / 1160
Balance -180 / -180 -460 / -460
Data Reviewed
-
Total Time Spent with Patient (in minutes): 56
[2024-02-11] MEDS: FLUSH (NSS) 2 FLUSH IV (13:32)
[2024-02-11] MEDS: DECADRON 4 MG IV ×2 (13:32)
--- NOTE | 2024-02-11 17:41 | CM ---
Pt seen by Johanna EASLEY and pastoral care. See previous CM note.
Spoke with pt in room .
[id number] PT OT evals with pt .
She is unsure of SNF at dc.
She will review SNF with dgt and will revisit tomorrow.
PLAN DC plan ongoing PT OT indicate SNF.
[2024-02-11] MEDS: LOVENOX 30 MG SC (17:59)
[2024-02-11] MEDS: COLACE 100 MG PO (20:33)
[2024-02-11] MEDS: SENOKOT 17.2 MG PO (22:31)
[2024-02-11] MEDS: ELAVIL 50 MG PO (22:31)
[2024-02-12] VITALS (8 sets, daily range): BP systolic 155–186; BP diastolic 80–102; PULSE 77–80; O2SAT 93; BMI 34.8
[2024-02-12] MEDS: DECADRON 4 MG IV (00:01)
[2024-02-12] MEDS: MIRALAX 17 GRAMS PO (00:22)
[2024-02-12] MEDS: ROXICODONE 5 MG PO (03:55)
--- NOTE | 2024-02-12 06:22 | PTCARENOTE ---
Pt aaox3,forgetful at times only, able to make her needs known. Fall precautions maintained.PIN DRAFTER OPERATOR confidential secretary made aware of pt BP range last BP 170/80,HR-72. Pt has chronic pain generalized, on prn & scheduled pain meds.Pt was explained about side
effects of pain meds,was provided with stool softners as pt c/o abdominal discomfort at times,RESOLUTION ANALYST was made aware,no BM overnight,pt feels she is going to have BM,Flatus(+). Miralax was provided to pt, pt only drank a little & refused the
rest.Encouraged PO intake,PO liquids as tolerated. No new orders at this time. Pt branham draining well,Q2 Turns continued.Plan of care continued on pt.
[2024-02-12 08:52] LABS: % Basophils 0.3 % (0-2); % Immature Granulocytes 1.7 % (0-0.5); % Lymphocytes 7.6 % (20.5-51.1); % Neutrophils 87.4 % (42.2-75.2); Absolute Basophils 0.1 10^3/uL (0-0.2); Absolute Immature Granulocytes 0.3 10^3/uL (0-0.05); Absolute Lymphocytes 1.4 10^3/uL (1.2-3.4); Absolute Monocytes 0.5 10^3/uL (0.1-0.6); Absolute Neutrophils 15.6 10^3/uL (1.4-6.5); Hematocrit 33.6 % (37.0-47.0); Hemoglobin 11.3 g/dL (12.0-16.0); Mean Corp Hgb Conc. 33.6 g/dL (33.0-37.0); Mean Corpuscular Hgb 29.4 pg (27.0-31.0); Mean Corpuscular Volume 87.3 fL (81.0-99.0); Mean Platelet Volume 10.4 fL (7.4-10.4); Nucleated Red Blood Cells % 0 %; Platelet Count 252 10^3/uL (130-400); Red Blood Cell Count 3.85 10^6/uL (4.20-5.40); Red Cell Dist. Width 13.7 % (11.5-14.5); White Blood Cell Count 17.9 10^3/uL (4.8-10.8)
[2024-02-12] MEDS: OXYCONTIN (CONTROLLED RELEASE) 20 MG PO ×3 (09:13→21:20)
[2024-02-12] MEDS: COLACE 100 MG PO ×2 (09:13→21:20)
[2024-02-12] MEDS: TYLENOL 1000 MG PO ×3 (09:13→21:22)
[2024-02-12 10:02] LABS: Blood Urea Nitrogen 37 mg/dl (7-17); Calcium 8.6 mg/dl (8.4-10.2); Carbon Dioxide 26 mmol/L (22-30); Chloride 103 mmol/L (98-107); Estimated Creatinine Clearance 56 ml/min; Glucose 135 mg/dl (70-99); Potassium 4.6 mmol/L (3.5-5.1); Sodium 141 mmol/L (135-145); eGFR 59.12
--- NOTE | 2024-02-12 11:19 | W.PN.HOSP.TC ---
Today's Communication/Plan
-
Cr improved
observe off IVF
MR to assess left renal lesion
PT/OT/OOB
CM for placement
Assessment / Plan
Assessment / Plan
General: morbidly obese, sitting in chair,
HEENT: Moist mucous membranes and PERRLA
Respiratory: dec bs
Cardiac: S1/S2 and Regular Rhythm; No Murmur
GI: Soft, Non Tender, Non Distended and Normal Bowel Sounds
with Alexandra catheter
Musculoskeletal: No Clubbing, No Cyanosis and Other (2+ pitting edema b/l LEs and RUE. Compression glove in place over the R hand.)
Neuro: AO x 3 and Other (Generalized weakness. No focal deficits.)
A/P: Patient is a 73y F with PMH significant for chronic pain / RSD who presents to ED for evaluation s/p fall at home this evening.
DANYEL
Anion Gap Metabolic Acidosis
Left renal lesion
Urinary retention
- Elevated creatinine likely to be multifactorial while being on diclofenac, urinary retention, diuretics, ?renal lesion
- Patient presents with SCR = 4.1 on admission. Now at baseline.
- Hold further NSAIDs and other nephrotoxic agents.
- DC further IV fluids and observe.
- Renal bladder US with renal lesion.
- Bicarb improving-hold po bicarb
- MR to assess solid renal lesion
- Significant urinary retention likely 2/2 back pain/decrease mobility. TOV at [facility] or prior to DC if with increase mobility
Hypotension
-started midodrine. BP stabilized and DC further midodrine.
Acute Hypoxemic Respiratory Insufficiency
- Unclear etiology. CXR with elevated R hemidiaphragm. No focal infiltrates.
- No acute / recent respiratory complaints and patient denies any cough / dyspnea.
- ? med effect due to increased pain meds after recent fall.
- Minimize sedating meds as able.
- O2 support as needed. on room air.
- Incentive spirometry.
Weakness / Fall at Home
Spasticity
- ? etiology of new / worsened symptoms.
- No focal weakness appreciated on exam.
- Doubt cauda equina with good rectal tone, etc.
- MRI L-spine noted SEVERE ACUTE DISCOGENIC DEGENERATIVE DISEASE at L1/L2 with a moderate amount of acute bone marrow edema in the adjacent endplates and a central disc herniation causing MODERATE CENTRAL CANAL STENOSIS which has increased since
07/10/2013.
- Follow for any new complaints, etc.
- PT / OT evaluations. Recs SNF on discharge.
- Avoid sedating meds as noted above.
- Trial of steroids without much response and DC further IV decadron.
Leukocytosis
- ? stress response versus volume depletion versus other.
- Afebrile and without any acute infectious symptoms.
- Observe off of abx for now.
- Follow temperature curve, etc. WBC bumped now due to steroids. afebrile
Chronic LE edema
-on lasix 40mg BID at home -on hold for now
-Sees Dr. Kraus as outpatient.
-Compression PRECIOUS therapy B/L
RSD
Chronic Pain Syndrome
Chronic Opioid Dependence
- Typical pain in R hand and low back per patient.
- Recent increase in pain in the L shoulder after fall 02/06.
- Continue chronic pain meds - but attempt to decrease dose / frequency given relative hypotension, weakness, etc.
- Follow-up with usual Pain Management as an outpatient.
DVT Prophylaxis: Lovenox
Code Status: Full
d/w with daughter at bedside in details on 02/10.
PT/OT-SNF. Cm aware.
Anticipated Discharge: 24 - 48 hours
Subjective/Interval History
-
Date of Service: February 12, 2024
states of back pain/spasms
having intermittent loose stools
Objective Data
-
Labs:
Laboratory Results
02/12/24
08:27
WBC 17.9 H
Hgb 11.3 L
Hct 33.6 L
Plt Count 252 D
Sodium 141
Potassium 4.6
Chloride 103
Carbon Dioxide 26
BUN 37 H
Creatinine 1.0
Glucose 135 H
Calcium 8.6
Vital Signs:
Vital Signs
Temp Pulse Resp BP Pulse Ox
98 F 78 18 155/102 95
02/12/24 08:00 02/12/24 08:00 02/12/24 08:00 02/12/24 08:00 02/12/24 08:58
I&O
02/11/24 02/12/24 02/13/24
06:59 06:59 06:59
Intake Total 700 / 700 1040 / 1040
Output Total 1160 / 1160 1000 / 1000
Balance -460 / -460 40 / 40
Data Reviewed
-
Total Time Spent with Patient (in minutes): 51
--- NOTE | 2024-02-12 16:09 | PTCARENOTE ---
Pt AAO x3, BRAXTON; OOB to chair with assist x 1/rolling walker, pt c/o bilat shoulder pain with activity. VSS. On room air- pulseox 99%, no SOB noted. Abd obese, soft, pt refusing meal trays this shift; taking fluids. Pt occ c/o nausea/retching;
Dr. Mcelroy notified. Alexandra P/I mod amts clear gilmar urine. Resting in chair at present. Will continue to monitor.
[2024-02-12] MEDS: ZOFRAN 4 MG IV ×2 (16:29→22:48)
[2024-02-12] MEDS: FLUSH (NSS) 1 FLUSH IV (16:29)
[2024-02-12] MEDS: LOVENOX 40 MG SC (17:45)
--- NOTE | 2024-02-12 18:04 | CM ---
[facility].
Pt remains on clear liquids with N /V
PLAN To SNf after accepted .
[2024-02-12] MEDS: SENOKOT 17.2 MG PO (21:21)
[2024-02-12] MEDS: ELAVIL 50 MG PO (21:21)
[2024-02-12] MEDS: COMPAZINE 5 MG IV (21:56)
[2024-02-13 02:11] VITALS: BP 172/68
--- NOTE | 2024-02-13 02:12 | PTCARENOTE ---
At 23:00, pt 170/85bp and hr 80. RN rechecked manual 172/68 bp. RN notified ASSISTANT PROFESSOR OF HISTORY- no new orders at this time. Pt is resting comfortably w/ call cash within reach.
[2024-02-13 05:47] VITALS: BMI 34.7
[2024-02-13 07:40] LABS: % Basophils 0.4 % (0-2); % Eosinophils 1.4 % (0-6); % Immature Granulocytes 2.8 % (0-0.5); % Lymphocytes 14.2 % (20.5-51.1); % Neutrophils 76.2 % (42.2-75.2); Absolute Basophils 0.1 10^3/uL (0-0.2); Absolute Eosinophils 0.2 10^3/uL (0-0.7); Absolute Immature Granulocytes 0.4 10^3/uL (0-0.05); Absolute Lymphocytes 1.9 10^3/uL (1.2-3.4); Absolute Monocytes 0.7 10^3/uL (0.1-0.6); Absolute Neutrophils 10.2 10^3/uL (1.4-6.5); Hematocrit 32.7 % (37.0-47.0); Hemoglobin 10.6 g/dL (12.0-16.0); Mean Corp Hgb Conc. 32.4 g/dL (33.0-37.0); Mean Corpuscular Hgb 29.1 pg (27.0-31.0); Mean Corpuscular Volume 89.8 fL (81.0-99.0); Mean Platelet Volume 10.3 fL (7.4-10.4); Nucleated Red Blood Cells % 0 %; Platelet Count 258 10^3/uL (130-400); Red Blood Cell Count 3.64 10^6/uL (4.20-5.40); Red Cell Dist. Width 13.8 % (11.5-14.5); White Blood Cell Count 13.5 10^3/uL (4.8-10.8)
[2024-02-13 07:52] VITALS: BP 188/82
[2024-02-13 08:23] LABS: Blood Urea Nitrogen 28 mg/dl (7-17); Calcium 8.4 mg/dl (8.4-10.2); Carbon Dioxide 28 mmol/L (22-30); Chloride 103 mmol/L (98-107); Estimated Creatinine Clearance 62 ml/min; Glucose 98 mg/dl (70-99); Potassium 4.1 mmol/L (3.5-5.1); Sodium 142 mmol/L (135-145); eGFR > 60.00
[2024-02-13] MEDS: COLACE 100 MG PO ×2 (09:53→20:12)
[2024-02-13] MEDS: TYLENOL 1000 MG PO ×3 (09:53→22:32)
[2024-02-13] MEDS: OXYCONTIN (CONTROLLED RELEASE) 20 MG PO ×3 (09:53→22:31)
[2024-02-13] MEDS: APRESOLINE 10 MG IV (09:54)
[2024-02-13] MEDS: FLUSH (NSS) 2 FLUSH IV ×3 (09:55→13:30)
[2024-02-13] MEDS: ZOFRAN 4 MG IV (10:06)
--- NOTE | 2024-02-13 11:31 | W.PN.HOSP.TC ---
Today's Communication/Plan
-
Check abdomen xray
restart home pain regimen
restart gabapentin
monitor BP
SNF on DC
Assessment / Plan
Assessment / Plan
General: morbidly obese, sitting in chair,
HEENT: Moist mucous membranes and PERRLA
Respiratory: dec bs
Cardiac: S1/S2 and Regular Rhythm; No Murmur
GI: Soft, Tender epigastric tenderness, Non Distended and Normal Bowel Sounds
with Alexandra catheter
Musculoskeletal: No Clubbing, No Cyanosis and Other (2+ pitting edema b/l LEs and RUE. Compression glove in place over the R hand.)
Neuro: AO x 3 and Other (Generalized weakness. No focal deficits.)
A/P: Patient is a 73y F with PMH significant for chronic pain / RSD who presents to ED for evaluation s/p fall at home this evening.
DANYEL
Anion Gap Metabolic Acidosis
Left renal lesion
Urinary retention
- Elevated creatinine likely to be multifactorial while being on diclofenac, urinary retention, diuretics, ?renal lesion
- Patient presents with SCR = 4.1 on admission. Now at baseline.
- Hold further NSAIDs and other nephrotoxic agents.
- DC further IV fluids and observe.
- Renal bladder US with renal lesion.
- Bicarb improving-hold po bicarb
- unable to tolerate MRI abdomen to asess for Left renal lesion-will need to f/u as OP once improvement in back pain.
- Significant urinary retention likely 2/2 back pain/decrease mobility. TOV at SNF or prior to DC if with increase mobility
Nausea/vomiting
-?Gastritis due to recent NSAIDs usage
-PPI added
-Check abdomen xray
-Monitor for diet tolerance
Primary HTN
-Restart home regimen acebutoilol TID, Lasix
-If no improvement may need to addition agents
-prn hydralazine for now
Hypotension
-started midodrine. BP stabilized and DC further midodrine.
Acute Hypoxemic Respiratory Insufficiency
- Unclear etiology. CXR with elevated R hemidiaphragm. No focal infiltrates.
- No acute / recent respiratory complaints and patient denies any cough / dyspnea.
- ? med effect due to increased pain meds after recent fall.
- Minimize sedating meds as able.
- O2 support as needed. on room air.
- Incentive spirometry.
Weakness / Fall at Home
Spasticity
- ? etiology of new / worsened symptoms.
- No focal weakness appreciated on exam.
- Doubt cauda equina with good rectal tone, etc.
- MRI L-spine noted SEVERE ACUTE DISCOGENIC DEGENERATIVE DISEASE at L1/L2 with a moderate amount of acute bone marrow edema in the adjacent endplates and a central disc herniation causing MODERATE CENTRAL CANAL STENOSIS which has increased since
07/10/2013.
- PT / OT evaluations. Recs SNF on discharge.
- Avoid sedating meds as noted above.
- Trial of steroids without much response and DC further IV decadron.
Leukocytosis
- ? stress response versus volume depletion versus other.
- Afebrile and without any acute infectious symptoms.
- Observe off of abx for now.
- Follow temperature curve, etc. WBC bumped now due to steroids. afebrile
Chronic LE edema
-on lasix 40mg BID at home -restart 40mg daily for now
-Sees Dr. Kraus as outpatient.
-Compression PRECIOUS therapy B/L
RSD
Chronic Pain Syndrome
Chronic Opioid Dependence
- Typical pain in R hand and low back per patient.
- Recent increase in pain in the L shoulder after fall 02/06.
- Continue chronic pain meds - but attempt to decrease dose / frequency given relative hypotension, weakness, etc.
- Follow-up with usual Pain Management as an outpatient.
DVT Prophylaxis: Lovenox
Code Status: Full
d/w with spouse at bedside in details on 02/12
PT/OT-SNF. Cm aware.
Anticipated Discharge: > 48 hours
Subjective/Interval History
-
Date of Service: February 13, 2024
states of nausea and vomiting
back pain persists but mild improvement
Objective Data
-
Labs:
Laboratory Results
02/13/24
07:17
WBC 13.5 H
Hgb 10.6 L
Hct 32.7 L
Plt Count 258
Sodium 142
Potassium 4.1
Chloride 103
Carbon Dioxide 28
BUN 28 H
Creatinine 0.9
Glucose 98
Calcium 8.4
Vital Signs:
Vital Signs
Temp Pulse Resp BP Pulse Ox
98.1 F 78 18 188/82 93
02/13/24 07:52 02/13/24 07:52 02/13/24 07:52 02/13/24 09:54 02/13/24 07:52
I&O
02/12/24 02/13/24 02/14/24
06:59 06:59 06:59
Intake Total 1040 / 1040 720 / 720
Output Total 1000 / 1000 1140 / 1140
Balance 40 / 40 -420 / -420
Data Reviewed
-
Total Time Spent with Patient (in minutes): 53
[2024-02-13 11:43] VITALS: BP 171/90; BP 174/78; BP 175/72; PULSE 101; PULSE 103; PULSE 99
[2024-02-13 12:08] VITALS: BMI 34.7
[2024-02-13] MEDS: NSS (PRESERVATIVE FREE) 10 ML IV (13:29)
[2024-02-13] MEDS: PROTONIX IV 40 MG IV (13:30)
[2024-02-13] MEDS: NEURONTIN PO (13:37)
[2024-02-13 14:41] VITALS: BP 154/85
[2024-02-13] MEDS: NEURONTIN 300 MG PO ×2 (15:40→22:32)
[2024-02-13] MEDS: SECTRAL 200 MG PO ×2 (15:41→22:32)
--- NOTE | 2024-02-13 16:19 | CM ---
Spoke with pt and dgt
Pt requested SNF referral for [facility], [facility], [facility] clinical,[facility] accept, [facility] no beds, [facility] under review.[facility] LM.
Will call [facility] and [facility] tomorrow to see if can be accepted..
PLAN Ongoing SNF search
[2024-02-13] MEDS: LOVENOX 40 MG SC (18:23)
[2024-02-13] MEDS: ELAVIL 50 MG PO (22:36)
[2024-02-13] MEDS: SENOKOT 17.2 MG PO (22:37)
[2024-02-13 23:43] VITALS: BP 142/76
[2024-02-14 06:00] VITALS: BMI 34.2
[2024-02-14 07:49] LABS: Blood Urea Nitrogen 20 mg/dl (7-17); Calcium 8.4 mg/dl (8.4-10.2); Carbon Dioxide 25 mmol/L (22-30); Chloride 103 mmol/L (98-107); Estimated Creatinine Clearance 62 ml/min; Glucose 81 mg/dl (70-99); Sodium 142 mmol/L (135-145); eGFR > 60.00
[2024-02-14 08:24] VITALS: BP 149/73
[2024-02-14] MEDS: OXYCONTIN (CONTROLLED RELEASE) 20 MG PO ×3 (08:39→21:26)
[2024-02-14] MEDS: NEURONTIN 300 MG PO ×3 (08:39→21:18)
[2024-02-14] MEDS: COLACE 100 MG PO (08:39)
[2024-02-14] MEDS: SECTRAL 200 MG PO ×3 (08:40→21:25)
[2024-02-14] MEDS: TYLENOL 1000 MG PO ×3 (08:40→21:19)
[2024-02-14] MEDS: ZYLOPRIM 100 MG PO (08:40)
[2024-02-14] MEDS: NSS (PRESERVATIVE FREE) 10 ML IV (08:41)
[2024-02-14] MEDS: PROTONIX IV 40 MG IV (08:41)
[2024-02-14] MEDS: FLUSH (NSS) 1 FLUSH IV (08:41)
[2024-02-14 10:01] VITALS: BP 164/75; PULSE 74
--- NOTE | 2024-02-14 12:19 | W.PN.HOSP.TC ---
Today's Communication/Plan
-
speech/puree diet for now
monitor diet tolerance
dc to snf pending po intake tolerance
Assessment / Plan
Assessment / Plan
General: morbidly obese, sitting in chair,
HEENT: Moist mucous membranes and PERRLA
Respiratory: dec bs
Cardiac: S1/S2 and Regular Rhythm; No Murmur
GI: Soft, Tender epigastric tenderness, Non Distended and Normal Bowel Sounds
with Alexandra catheter
Musculoskeletal: No Clubbing, No Cyanosis and Other (2+ pitting edema b/l LEs and RUE. Compression glove in place over the R hand.)
Neuro: AO x 3 and Other (Generalized weakness. No focal deficits.)
A/P: Patient is a 73y F with PMH significant for chronic pain / RSD who presents to ED for evaluation s/p fall at home this evening.
DANYEL
Anion Gap Metabolic Acidosis
Left renal lesion
Urinary retention
- Elevated creatinine likely to be multifactorial while being on diclofenac, urinary retention, diuretics, ?renal lesion
- Patient presents with SCR = 4.1 on admission. Now at baseline.
- Hold further NSAIDs and other nephrotoxic agents.
- DC further IV fluids and observe.
- Renal bladder US with renal lesion.
- Bicarb improving-hold po bicarb
- unable to tolerate MRI abdomen to asess for Left renal lesion-will need to f/u as OP once improvement in back pain.
- Significant urinary retention likely 2/2 back pain/decrease mobility. TOV today.
Nausea/vomiting seems to be improving
-?Gastritis due to recent NSAIDs usage
-PPI added
-Xray Nonobstructive bowel gas pattern.
-Monitor for diet tolerance
-states difficulty due to dentures and gag reflux to food stuck in dentures
Primary HTN
-Restart home regimen acebutoilol TID. restart lasix once tolerating more po intake
-If no improvement may need to addition agents
-prn hydralazine for now
Hypotension
-started midodrine. BP stabilized and DC further midodrine.
Acute Hypoxemic Respiratory Insufficiency
- Unclear etiology. CXR with elevated R hemidiaphragm. No focal infiltrates.
- No acute / recent respiratory complaints and patient denies any cough / dyspnea.
- ? med effect due to increased pain meds after recent fall.
- Minimize sedating meds as able.
- O2 support as needed. on room air.
- Incentive spirometry.
Weakness / Fall at Home
Spasticity
- ? etiology of new / worsened symptoms.
- No focal weakness appreciated on exam.
- Doubt cauda equina with good rectal tone, etc.
- MRI L-spine noted SEVERE ACUTE DISCOGENIC DEGENERATIVE DISEASE at L1/L2 with a moderate amount of acute bone marrow edema in the adjacent endplates and a central disc herniation causing MODERATE CENTRAL CANAL STENOSIS which has increased since
07/10/2013.
- PT / OT evaluations. Recs SNF on discharge.
- Avoid sedating meds as noted above.
- Trial of steroids without much response and DC further IV decadron.
Leukocytosis
- ? stress response versus volume depletion versus other.
- Afebrile and without any acute infectious symptoms.
- Observe off of abx for now.
- Follow temperature curve, etc. WBC bumped now due to steroids. afebrile
Chronic LE edema
-on lasix 40mg BID at home -restart 40mg daily for now
-Sees Dr. Kraus as outpatient.
-Compression PRECIOUS therapy B/L
RSD
Chronic Pain Syndrome
Chronic Opioid Dependence
- Typical pain in R hand and low back per patient.
- Recent increase in pain in the L shoulder after fall 02/06.
- Continue chronic pain meds - but attempt to decrease dose / frequency given relative hypotension, weakness, etc.
- Follow-up with usual Pain Management as an outpatient.
DVT Prophylaxis: Lovenox
Code Status: Full
d/w with spouse at bedside in details on 02/12
PT/OT-SNF. Cm aware.
Anticipated Discharge: Within 24 hours
Subjective/Interval History
-
Date of Service: February 14, 2024
states drinking liquids only
will try to pureed diet-states difficulty due to dentures
Objective Data
-
Labs:
Laboratory Results
02/14/24
06:30
Sodium 142
Potassium 4.0
Chloride 103
Carbon Dioxide 25
BUN 20 H
Creatinine 0.9
Glucose 81
Calcium 8.4
Vital Signs:
Vital Signs
Temp Pulse Resp BP Pulse Ox
98.1 F 72 18 149/73 93
02/14/24 08:24 02/14/24 08:40 02/14/24 08:24 02/14/24 08:40 02/14/24 08:38
I&O
02/13/24 02/14/24 02/15/24
06:59 06:59 06:59
Intake Total 720 / 720 720 / 720
Output Total 1140 / 1140 1200 / 1200
Balance -420 / -420 -480 / -480
--- NOTE | 2024-02-14 13:41 | PTOTSP ---
Dysphagia Evaluation
Patient without signs of oral/pharyngeal dysphagia or aspiration. Patient reporting oral sensitivity, hyperactive gag response, inability to place dentures and feelings of nausea impacting oral intake.
Recommend:
1. Continue L4 puree, Thin liquid diet as ordered by MD
2. Medical management of nausea by MD
3. Medications - crushed in puree if medically cleared
4. Strategies: upright to 90 degrees, reflux precautions
5. Consider dietitian consult as needed if nausea continues to limit oral intake
No further dysphagia therapy warranted. Please reconsult as appropriate.
[2024-02-14 15:53] VITALS: BP 164/79
--- NOTE | 2024-02-14 16:33 | PTCARENOTE ---
Pt AAO x3, BRAXTON; has sl decreased ROM to RUE d/t history of RSD. OOB to chair/BSC with assist x1, kristyn well; legs weak. VSS. On room air- pulseox 95%, no SOB noted. Abd obese, soft, kristyn PO fluids, refused reg meal tray for lunch, stated will try
regular diet for dinner. Incont BM. Pt unable to void, bladder scanned for 428 ml; pt straight cathed for 400 ml clear lt gilmar urine. Resting in bed at present, no c/o. Will continue to monitor.
--- NOTE | 2024-02-14 17:18 | CM ---
Reviewed SNF referral for [facility], [facility], [facility].
Spoke with [facility] she has a bed for tomorrow.
Pt will need a Covid test prior to dc. aware.
PT will need to tolerate po.
Pts branham removed was unable to void st cathed.
Pt will tell dgt dc is not today but tomorrow.
Family will transport.
IMM signed on chart.
[facility]
report [phone]
fax [phone]
PLAN to [facility]
[2024-02-14] MEDS: LOVENOX 40 MG SC (17:41)
[2024-02-14] MEDS: COLACE PO (20:53)
[2024-02-14] MEDS: DESENEX/MITRAZOL/ZEASORB 1 APPLIC TOPICAL (20:53)
[2024-02-14] MEDS: ELAVIL 50 MG PO (21:17)
[2024-02-14] MEDS: SENOKOT PO (21:19)
[2024-02-14 23:55] VITALS: BP 164/66
[2024-02-15] MEDS: APRESOLINE 10 MG IV ×2 (01:05→14:21)
[2024-02-15 03:01] VITALS: BP 140/58
[2024-02-15 06:00] VITALS: BMI 33.7
[2024-02-15 07:14] VITALS: BP 164/71
[2024-02-15 08:56] LABS: Blood Urea Nitrogen 15 mg/dl (7-17); Calcium 8.6 mg/dl (8.4-10.2); Carbon Dioxide 23 mmol/L (22-30); Chloride 102 mmol/L (98-107); Estimated Creatinine Clearance 79 ml/min; Glucose 88 mg/dl (70-99); Sodium 140 mmol/L (135-145); eGFR > 60.00
[2024-02-15] MEDS: PROTONIX IV 40 MG IV (09:01)
[2024-02-15] MEDS: NSS (PRESERVATIVE FREE) 10 ML IV (09:02)
[2024-02-15] MEDS: OXYCONTIN (CONTROLLED RELEASE) 20 MG PO (09:02)
[2024-02-15] MEDS: SECTRAL 200 MG PO (09:03)
[2024-02-15] MEDS: TYLENOL 1000 MG PO (09:03)
[2024-02-15] MEDS: NEURONTIN 300 MG PO (09:03)
[2024-02-15] MEDS: COLACE PO (09:03)
[2024-02-15] MEDS: DESENEX/MITRAZOL/ZEASORB 1 APPLIC TOPICAL (09:04)
[2024-02-15] MEDS: ZYLOPRIM 100 MG PO (09:04)
[2024-02-15 09:51] LABS: COVID-19 Antigen Negative (Negative)
[2024-02-15] MEDS: LASIX 40 MG PO (10:15)
--- NOTE | 2024-02-15 11:06 | W.PN.HOSP.TC ---
Today's Communication/Plan
-
DC to SNF
Assessment / Plan
Assessment / Plan
General: morbidly obese, sitting in chair,
HEENT: Moist mucous membranes and PERRLA
Respiratory: dec bs
Cardiac: S1/S2 and Regular Rhythm; No Murmur
GI: Soft, Tender epigastric tenderness, Non Distended and Normal Bowel Sounds
with Alexandra catheter
Musculoskeletal: No Clubbing, No Cyanosis and Other (2+ pitting edema b/l LEs and RUE. Compression glove in place over the R hand.)
Neuro: AO x 3 and Other (Generalized weakness. No focal deficits.)
A/P: Patient is a 73y F with PMH significant for chronic pain / RSD who presents to ED for evaluation s/p fall at home this evening.
DANYEL
Anion Gap Metabolic Acidosis
Left renal lesion
Urinary retention
- Elevated creatinine likely to be multifactorial while being on diclofenac, urinary retention, diuretics, ?renal lesion
- Patient presents with SCR = 4.1 on admission. Now at baseline.
- Hold further NSAIDs and other nephrotoxic agents.
- DC further IV fluids and observe.
- Renal bladder US with renal lesion.
- Bicarb improving-hold po bicarb
- unable to tolerate MRI abdomen to asess for Left renal lesion-will need to f/u as OP once improvement in back pain. Patient verbalized understanding.
- Significant urinary retention likely 2/2 back pain/decrease mobility. Voiding now without difficulty.
Nausea/vomiting seems to be improving
-?Gastritis due to recent NSAIDs usage
-PPI added
-Xray Nonobstructive bowel gas pattern.
-Monitor for diet tolerance. Tolerating it.
-states difficulty due to dentures and gag reflux to food stuck in dentures
Primary HTN
-Restart home regimen acebutoilol TID. restart lasix
-prn hydralazine for now
Hypotension
-started midodrine. BP stabilized and DC further midodrine.
Acute Hypoxemic Respiratory Insufficiency
- Unclear etiology. CXR with elevated R hemidiaphragm. No focal infiltrates.
- No acute / recent respiratory complaints and patient denies any cough / dyspnea.
- ? med effect due to increased pain meds after recent fall.
- Minimize sedating meds as able.
- O2 support as needed. on room air.
- Incentive spirometry.
Weakness / Fall at Home
Spasticity
- ? etiology of new / worsened symptoms.
- No focal weakness appreciated on exam.
- Doubt cauda equina with good rectal tone, etc.
- MRI L-spine noted SEVERE ACUTE DISCOGENIC DEGENERATIVE DISEASE at L1/L2 with a moderate amount of acute bone marrow edema in the adjacent endplates and a central disc herniation causing MODERATE CENTRAL CANAL STENOSIS which has increased since
07/10/2013.
- PT / OT evaluations. Recs SNF on discharge.
- Avoid sedating meds as noted above.
- Trial of steroids without much response and DC further IV decadron.
- OP spine follow up
Leukocytosis
- ? stress response versus volume depletion versus other.
- Afebrile and without any acute infectious symptoms.
- Observe off of abx for now.
- Follow temperature curve, etc. WBC bumped now due to steroids. afebrile
Chronic LE edema
-on lasix 40mg BID at home -restart 40mg daily for now
-Sees Dr. Kraus as outpatient.
-Compression PRECIOUS therapy B/L
RSD
Chronic Pain Syndrome
Chronic Opioid Dependence
- Typical pain in R hand and low back per patient.
- Recent increase in pain in the L shoulder after fall 02/06.
- Continue chronic pain meds - but attempt to decrease dose / frequency given relative hypotension, weakness, etc.
- Follow-up with usual Pain Management as an outpatient.
DVT Prophylaxis: Lovenox
Code Status: Full
d/w with spouse at bedside in details on 02/12
PT/OT-SNF. Cm aware.
More than 30 minutes spent in discharge including
Final examination of the patient
Summarizing hospital stay
Instructions for continuing care to all relevant caregivers
Preparation of discharge records, prescriptions, and referral forms
Total time spent (in minutes): 53
Anticipated Discharge: Today
Subjective/Interval History
-
Date of Service: February 15, 2024
ambulating
no nausea
po appetite improving
improvement in back pain
Objective Data
-
Labs:
Laboratory Results
02/15/24
06:24
Sodium 140
Potassium 4.0
Chloride 102
Carbon Dioxide 23
BUN 15
Creatinine 0.7
Glucose 88
Calcium 8.6
Vital Signs:
Vital Signs
Temp Pulse Resp BP Pulse Ox
98.6 F 69 16 164/71 95
02/15/24 07:14 02/15/24 07:14 02/15/24 07:14 02/15/24 07:14 02/15/24 07:14
I&O
02/14/24 02/15/24 02/16/24
06:59 06:59 06:59
Intake Total 720 / 720 1120 / 1120
Output Total 1200 / 1200 400 / 400
Balance -480 / -480 720 / 720
--- NOTE | 2024-02-15 11:21 | W.DCSUMMARY ---
Discharge Summary
Discharge Data
Date of Admission: 02/09/24
Date of Discharge: 02/15/24
-
Pending Results: No
Hospital Course
74 female past medical history of hypertension, chronic back pain, chronic opiate dependent daily basis, chronic lower extremity edema, left presenting after mechanical fall at home. Patient was complaining of severe back pain. Patient underwent
MRI of the lumbar spine MRI L-spine noted SEVERE ACUTE DISCOGENIC DEGENERATIVE DISEASE at L1/L2 with a moderate amount of acute bone marrow edema in the adjacent endplates and a central disc herniation causing MODERATE CENTRAL CANAL STENOSIS which
has increased since 07/10/2013. IV steroids were started further lumbar radiculopathy without any improvement and thus it was discontinued. Patient home pain medication regimen was continued. Patient with significant improvement in back pain with
physical therapy. Patient was also found to have a severely elevated creatinine. Patient was on IV fluids. Patient with urine retention and required Alexandra catheter. Patient creatinine slowly down trended to baseline. Lasix was restarted.
Creatinine remained stable. Patient was voiding without difficulty. Patient was also found to have a solid left renal lesion. MRI of the abdomen was ordered. Patient was unable to tolerate it laying flat and thus she was recommended to follow-up
with primary care doctor. Patient verbalized understanding. Patient with nausea vomiting which was secondary to dentures. Patient was started on PPI which was transitioned to Pepcid on discharge. Blood pressure was persistently elevated and
hydralazine was added (recent cr elevation and le edema-avoid ACEI/ARB for now). Patient p.o. intake improved and nausea and vomiting resolved. Patient was eval by physical and Occupational Therapy with discharge to detention facility.
Discharge Plan
-
Patient Disposition: Longterm/SNF
Discharge Diagnosis/Procedures: Acute kidney injury
Anion gap metabolic acidosis
Left renal lesion
Urinary retention status post Alexandra catheter placement
Nausea vomiting
Acute hypoxic respiratory insufficiency
Weakness
Mechanical fall
Leukocytosis
Severe back pain
Chronic insomnia
Condition: Fair
Diet: 2 Gram Sodium and Restrict fluids to 48 oz
Activity: With assistance and As tolerated
Driving Restrictions: As prior to admission
Others Tests: Recommend CT abd/pelvis or MRI abdomen to assess Left renal lesion with primary doctor.
Referrals:
Florencio Hooks MD [Family Provider] - in less than 1 week
()
Eros Gusman MD [Active] - in one to two weeks (f/u for back pain)
Prescriptions:
New
sennosides [Senna Laxative] 8.6 mg Tablet
17.2 mg PO HS 30 Days Qty: 60 0RF
famotidine [Pepcid] 20 mg tablet
20 mg PO DAILY Qty: 10 0RF
hydralazine 10 mg tablet
10 mg PO BID Qty: 60 0RF
Continued
allopurinol 100 mg Tablet
100 mg PO DAILY
Patient Comments:
morning
acebutolol 200 mg Capsule
200 mg PO TID
Patient Comments:
takes 08:00, 14:00, 20:00
levocetirizine [Xyzal] 5 mg Tablet
5 mg PO DAILY PRN (Reason: allergies)
Patient Comments:
as needed for allergies every 6 hours
Rx Instructions:
as needed fot seasonal alleries
furosemide 40 mg tablet
40 mg PO BID
gabapentin 300 mg capsule
300 mg PO TID
Patient Comments:
TID
amitriptyline 100 mg tablet
100 mg PO HS
Patient Comments:
nightly
cyanocobalamin (vitamin B-12) 1,000 mcg/mL solution
1,000 mcg SC MONTHLY
Patient Comments:
morning
oxycodone-acetaminophen 10-325 mg tablet
1 tab PO Q8H PRN (Reason: breakthrough pain) 3 Days Qty: 9 0RF
Rx Instructions:
prn Q8 as needed for breakthrough pain
oxycodone [OxyContin] 20 mg tablet,oral only,ext.rel.12 hr
20 mg PO TID 3 Days Qty: 9 0RF
Rx Instructions:
TID 08:00, 14:00 & 20:00
Changed
zolpidem 10 mg tablet
3 mg PO HS PRN (Reason: sleep) Qty: 3 0RF
Rx Instructions:
nightly
Discontinued
amoxicillin 500 mg capsule
500 mg PO TID
Patient Comments:
From having teeth pulled, not taking anymore
ergocalciferol (vitamin D2) 1,250 mcg (50,000 unit) capsule
1,250 mcg PO WE
Patient Comments:
morning
diclofenac sodium 75 mg tablet,delayed release (DR/EC)
75 mg PO BID
Patient Comments:
not using now
Discharge Orders:
Discharge Patient (As Directed); Ordered 02/15/24
Ordered By: Mendel Mcelroy
Discharge Date and Time
Print Language: MOSOTHO
--- NOTE | 2024-02-15 11:33 | CM ---
[facility] can accept today requesting a 3:30 pm bulk picker.
CM met with pt at bedside who is in agreement. Reports family will no longer be providing transport.
CM working with [facility] care unit to arrange transport for pt to SNF today.
[2024-02-15] MEDS: CLARITIN 10 MG PO (11:38)
[2024-02-15] MEDS: FLUAD (65 yr+) 2024-2025 FORMULA 0.5 ML IM (11:38)
[2024-02-15 11:53] VITALS: BP 168/83
--- NOTE | 2024-02-15 12:13 | CM ---
CM spoke with daughter Maddi [phone] who is in agreement of dcp to [facility] this afternoon however now declining transport and will transport pt herself. Daughter aware facility is requesting a 3:30 pm pickling solution maker time.
[2024-02-15 14:20] VITALS: BP 171/81
== END 2024-02-15 15:58 | DRG 683 ==
LOC: 4 EAST ACU 23:27
PROVIDERS: ADMITTING PHYSICIAN Hospitalist; ATTENDING PHYSICIAN Hospitalist; EMERGENCY PHYSICIAN Student in an Organized Health Care Education/Training Program; FAMILY PHYSICIAN Internal Medicine
PROC: 3E02340 Introduction of Influenza Vaccine into Muscle, Percutaneous Approach (ICD-10-PCS; 2024-02-15)
DX: N17.9 Acute kidney failure, unspecified (principal); E87.20 Acidosis, unspecified; F11.20 Opioid dependence, uncomplicated; M47.816 Spondylosis without myelopathy or radiculopathy, lumbar region; I10 Essential (primary) hypertension; R32 Unspecified urinary incontinence; R09.02 Hypoxemia; M51.16 Intervertebral disc disorders with radiculopathy, lumbar region; R26.2 Difficulty in walking, not elsewhere classified; G89.4 Chronic pain syndrome; M79.641 Pain in right hand; F51.04 Psychophysiologic insomnia; R06.89 Other abnormalities of breathing; D72.829 Elevated white blood cell count, unspecified; I95.9 Hypotension, unspecified; E66.01 Morbid (severe) obesity due to excess calories; F32.A Depression, unspecified; F41.9 Anxiety disorder, unspecified; M10.9 Gout, unspecified; M48.061 Spinal stenosis, lumbar region without neurogenic claudication; I89.0 Lymphedema, not elsewhere classified; W01.0XXA Fall on same level from slipping, tripping and stumbling without subsequent striking against object, initial encounter; Y93.01 Activity, walking, marching and hiking; Y92.002 Bathroom of unspecified non-institutional (private) residence as the place of occurrence of the external cause; Z90.11 Acquired absence of right breast and nipple; Z88.8 Allergy status to other drugs, medicaments and biological substances; Z90.49 Acquired absence of other specified parts of digestive tract; Z85.3 Personal history of malignant neoplasm of breast; Z68.33 Body mass index [BMI] 33.0-33.9, adult; Z23 Encounter for immunization; Z11.52 Encounter for screening for COVID-19
CPT/HCPCS: 71046; 72148; 74018; 76770; 80048; 80053; 81003; 81015; 81099; 82570; 83605; 83735; 84100; 84300; 84443; 85025; 85027; 87086; 87811; 90662; 92610; 93005; 96360; 97116; 97163; 97167; 97535; 99285; G0008

== ENCOUNTER 2024-07-17 00:24 | Emergency (ER) | payer MEDICARE, SELFPAY ==
[2024-07-17 00:42] VITALS: BP 174/97
[2024-07-17 04:12] VITALS: BP 188/84
--- NOTE | 2024-07-17 04:44 | ED.MUSCINJ ---
HPI-Injury
General
Chief Complaint: Fall
Source: patient and spouse
Exam Limitations: none
Time Seen by Provider: 07/17/24 04:32
Nursing documentation reviewed up to this point in time: agreed with
History of Present Illness-Injury
Initial Injury comments:
Pleasant 73-year-old female who presents to the emergency department with left shoulder left knee right foot and ankle pain. She states that around 9 PM last evening she was 'listening to the beatles '. She got up to change the CD and tripped on a
throw rug. She did land on her left shoulder and left knee. She also had right foot and ankle pain. Denies head injury or loss of consciousness. She states that the pain is worse when at rest and when she is moving her extremities the pain is
less. Reports no other complaints at this time. Has been able to ambulate. Accompanied by her who is present at the bedside. She is not on any blood thinners.
Past History
Past History
ED Past Medical History: HTN and Other (RSD)
ED Past Surgical History: Appendectomy, Cholecystectomy, Tonsilectomy and Other
Social History
Tobacco: Non-smoker
Alcohol: None
Drug: None
Personal:
Living: with family
Employment: Retired
Review of Systems
Review of Systems
Allergies reviewed?: Yes
All Other Systems: ROS reviewed and negative except as documented in HPI and ROS
Constitutional: Reports no symptoms
EENT: Reports no symptoms
Respiratory: Reports no symptoms
Cardiac: Reports no symptoms
ABD/GI: Reports no symptoms
: Reports no symptoms
Musculoskeletal: Reports joint pain and muscle stiffness
Skin: Reports no symptoms
Neurological: Reports no symptoms
Endocrine: Reports no symptoms
Hematologic/Lymphatic: Reports no symptoms
Psychiatric: Reports anxiety
Phy Exam
General Physical Exam
General Presentation: well appearing and mild distress
General age: appears stated age
General Skin: warm
General Habitus: elderly
General Mental: alert
General Hydration: appears well hydrated
ENT Exam
ENT Exam: EOMI, pharynx normal, neck supple and normocephalic
Eye Exam
Eye Exam: PERRL, cornea clear and conjunctiva normal
Cardiovascular Exam
Cardiovascular Exam: regular rate/rhythm, no edema, no murmur and normal peripheral pulses
Pulmonary Exam
Pulmonary Exam: lungs clear, no respiratory distress, no rales, no crackles, no rhonchi, no stridor, no wheezing and no cough
Gastrointestinal Exam
Gastrointestinal Exam: normal bowel sounds, non tender, soft, no organomegaly, no pulsatile mass and non distended
Neurological Exam
Neurological Exam: alert
Musculoskeletal Exam
Musculoskeletal Exam: full ROM (Some tenderness to palpation which is chronic by patient account) and neuro vasc intact
Skin Exam
Skin Exam: normal color, warm/dry, no rash and no petechia
Psychiatric Exam
Psychiatric Exam: normal mood/affect
Injury Course
Orders/Labs/Results
Orders:
Orders
07/17/24 00:49
Ankle, Right 3 view CR [CR Ankle - Right Min 3 Views *] Urgent
Comment:
Reason For Exam: fell, c/p pain R ankle
CR Foot - Right Min 3 Views Urgent
Comment:
Reason For Exam: fell c/o pain R ankle
CR Knee - Left 4 Or More View* Urgent
Comment:
Reason For Exam: fell c/o l knee pain
CR Shoulder, Trauma - Left Urgent
Comment:
Reason For Exam: fell, c/ pain
07/17/24 04:43
CR Pelvis - 1 Or 2 Views Urgent
Reason For Exam: hip pain
07/17/24 07:03
Acebutolol [Sectral] 200 mg PO NOW STA
*Critical Care Note
Total Time (30-74mins, 75-104mins- exclusive of procedures): Not Applicable
Update Note
Update Note:
All radiographic studies show no acute osseous abnormalities. Patient to be discharged home.
Patient ambulated with ease with her walker. She had no issues.
ED Attending Note
-
Portions of this chart may have been created with voice recognition software.� Occasional wrong word or��sound alike� substitutions may have occurred due to the inherent limitations of voice recognition software.
Discharge Plan
Departure
Patient Disposition: Home (Routine Discharge)
Date of Disposition: 07/17/24
Time of Disposition: 06:13
Patient with high blood pressure during this ER visit?: Yes
Discharge Problem:
Low back pain, Ambulatory dysfunction, Musculoskeletal limb pain
Prescriptions:
No Action
allopurinol 100 mg Tablet
100 mg PO DAILY
Patient Comments:
morning
acebutolol 200 mg Capsule
200 mg PO TID
Patient Comments:
takes 08:00, 14:00, 20:00
levocetirizine [Xyzal] 5 mg Tablet
5 mg PO DAILY PRN (Reason: allergies)
Patient Comments:
as needed for allergies every 6 hours
Rx Instructions:
as needed fot seasonal alleries
furosemide 40 mg tablet
40 mg PO BID
gabapentin 300 mg capsule
300 mg PO TID
Patient Comments:
TID
amitriptyline 100 mg tablet
100 mg PO HS
Patient Comments:
nightly
cyanocobalamin (vitamin B-12) 1,000 mcg/mL solution
1,000 mcg SC MONTHLY
Patient Comments:
morning
sennosides [Senna Laxative] 8.6 mg Tablet
17.2 mg PO HS 30 Days Qty: 60 0RF
oxycodone-acetaminophen 10-325 mg tablet
1 tab PO Q8H PRN (Reason: breakthrough pain) 3 Days Qty: 9 0RF
Rx Instructions:
prn Q8 as needed for breakthrough pain
oxycodone [OxyContin] 20 mg tablet,oral only,ext.rel.12 hr
20 mg PO TID 3 Days Qty: 9 0RF
Rx Instructions:
TID 08:00, 14:00 & 20:00
famotidine [Pepcid] 20 mg tablet
20 mg PO DAILY Qty: 10 0RF
hydralazine 10 mg tablet
10 mg PO BID Qty: 60 0RF
zolpidem [Ambien] 10 mg tablet
10 mg PO HS PRN (Reason: insomnia) Qty: 3 0RF
Referrals:
[facility] [Outside]
[facility] [Outside]
Activity Restrictions/Additional Instructions:
It was a pleasure meeting you and taking part in your care. We hope for your continued healing and wellness.
Please read discharge instructions in their entirety. However, they are for general education and may not describe your exact diagnosis at discharge. Information on your ER visit and medical conditions were discussed with you along with appropriate
follow up information...
If indicated, please take your medications as instructed and indicated on discharge paperwork.
Please schedule a follow up appointment as directed. Call to schedule an appointment
Please return to the emergency department with ANY change in, persisting, or worsening of symptoms. If any of your symptoms do not improve, or persist, or become more severe within 6-12 hours, please return to the emergency department for further
care.
Please return to the emergency department if you develop a headache, neck pain/stiffness, fever greater than 100.4F, chest pain, shortness of breath, persistent nausea, vomiting, slurred speech, difficulty walking, numbness/tingling, weakness, signs
of infection or any other symptoms that are worrisome to you.
If you have any questions or concerns please do not hesitate to call the Hospital at or E-mail me directly at [email or web address]
Interventions
Interventions:
*Risk Screen - Suicide Last Done: 07/17/24 00:42
Discharge Date and Time
Print Language: VIETNAMESE
[2024-07-17 05:08] VITALS: BP 195/99
[2024-07-17 06:55] VITALS: BP 209/103
[2024-07-17] MEDS: SECTRAL 200 MG PO (07:22)
[2024-07-17 07:28] VITALS: BP 209/103
== END 2024-07-17 07:30 | disposition home or self-care (01) ==
LOC: EMR 00:24
PROVIDERS: EMERGENCY PHYSICIAN Student in an Organized Health Care Education/Training Program
DX: M54.50 Low back pain, unspecified (principal); R26.2 Difficulty in walking, not elsewhere classified; M25.512 Pain in left shoulder; M25.562 Pain in left knee; M79.671 Pain in right foot; M25.571 Pain in right ankle and joints of right foot; W19.XXXA Unspecified fall, initial encounter; I10 Essential (primary) hypertension; Z90.49 Acquired absence of other specified parts of digestive tract
CPT/HCPCS: 99283; 72170; 73030; 73564; 73610; 73630

== ENCOUNTER 2024-08-26 18:21 | Observation (INO) | payer MEDICARE, SELFPAY ==
[2024-08-26] VITALS (8 sets, daily range): BP systolic 115–203; BP diastolic 77–106; PULSE 98; BMI 29.4; BMI 27.9
--- NOTE | 2024-08-26 14:13 | ED.GENMED ---
History of Present Illness
General
Chief Complaint: Fall
Source: patient
Exam Limitations: none
Time Seen by Provider: 08/26/24 13:59
History of Present Illness
History of Present Illness:
73yoF with a history of hypertension and RSD on chronic pain medication presenting via EMS for evaluation after a fall around 5am. Patient was in her kitchen this morning and saw a mouse. This startled her and caused her to fall backwards onto her
buttocks. There was no head strike or loss of consciousness. Patient was unable to get up after the fall. Her daughter found her on the ground this afternoon and called EMS. Patient currently complains of low back pain. She also has not
urinated at all today. Patient has required catheterization in the past for similar issues. She denies any saddle anesthesia. She does not take any blood thinners.
Past History
Past History
ED Past Medical History: HTN and Other (RSD)
ED Past Surgical History: Appendectomy, Cholecystectomy, Tonsilectomy and Other
Social History
Tobacco: Non-smoker
Alcohol: None
Drug: None
Personal:
Living: with family
Employment: Retired
Phy Exam
General Physical Exam
General Presentation: well appearing and mild distress
General Skin: warm and dry
General Habitus: elderly
General Mental: alert
ENT Exam
ENT Exam: normocephalic
Eye Exam
Eye Exam: PERRL and conjunctiva normal
Pulmonary Exam
Pulmonary Exam: lungs clear, no respiratory distress, no rales, no crackles and no rhonchi
Gastrointestinal Exam
Gastrointestinal Exam: soft, non distended and other (+Suprapubic tenderness)
Neurological Exam
Neurological Exam: alert
[place] Coma Scale
Eye Opening: Spontaneous
Verbal Response: Oriented
Motor Response: Obeys Commands
GCS Total Score: 15
Musculoskeletal Exam
Musculoskeletal Exam: other (+Lumbar spine tenderness. No step offs or skin changes. Rectal tone intact. )
Skin Exam
Skin Exam: normal color and warm/dry
Psychiatric Exam
Psychiatric Exam: normal mood/affect
Course
Orders/Labs/Results
Orders:
Orders
08/26/24 14:12
CT Lumbar Spine W/o Iv Contras Urgent
Comment:
Reason For Exam: fall, low back pain
Straight cath- Treatment ONCE
08/26/24 14:13
Oxycodone Controlled Release [Oxycontin (Controlled Release)] 20 mg PO NOW STA
08/26/24 14:30
Complete Blood Count/With Diff Urgent
Comprehensive Metabolic Panel Urgent
Total CK [Creatine Phosphokinase] Urgent
Urinalysis Reflex To Culture Urgent
Date Specimen was Collected: 08/26/24
Time Specimen was Collected: 14:26
Urine Microscopic Reflex Cult Urgent
Urine Culture Urgent
MAMIE Source: U
Specimen Description:
Date Specimen was Collected: 08/26/24
Time Specimen was Collected: 14:26
08/26/24 17:05
Acetaminophen [Tylenol] 1,000 mg PO NOW STA
HYDROmorphone [Dilaudid] 0.5 mg IV NOW STA
Ketorolac [Toradol] 15 mg IV NOW STA
08/26/24 17:15
Lidocaine [Lidocaine 4% Patch] 1 patch TOPICAL DAILY
Apply Lidocaine patch(s) to:: low back
08/26/24 17:57
Admit/Transfer Patient As Directed
Co-Sign Provider:
Level of Care: Observation services
Assign to:: Medical/Surgical
Physician / Group: Cele dial
Diagnosis: mechanical fall, ambulatory dysfunction
Code Status As Directed
Resuscitation Status: Full Code
PRN Pain Medication Management As Directed
May give lesser potent ordered pain med per pt: Yes
preference::
Protocol:: Medication orders for pain may be administered in a
manner that supports deferring to patient preference
when the pt is:
- Requesting an ordered lesser potent pain medication.
Least to most potent pain medications are defined
as: acetaminophen < NSAID < tramadol < opioids
(morphine, oxycodone, hydromorphone).
- Requesting a lesser dose of the same medication IF
ORDERED.
- Requesting a less intrusive route of administration
if both routes are prescribed by the provider (PO <
IV).
Abnormal Lab Results
08/26/24
14:30
Abs Immat Gran (auto) 0.1 H 10^3/uL
(0-0.05)
Absolute Neuts (auto) 9.2 H 10^3/uL
(1.4-6.5)
Absolute Lymphs (auto) 1.1 L 10^3/uL
(1.2-3.4)
Neutrophils % 85.5 H %
(42.2-75.2)
Lymphocytes % 10.0 L %
(20.5-51.1)
Total Bilirubin 1.8 H mg/dl
(0.2-1.3)
Creatine Kinase 251 H U/L
(30-135)
Urine Ketones 3+ A
(Negative)
Urine Bacteria (Reflex) Moderate A
(Negative)
Urine Albumin (Reflex) 2+ A
(Neg - Trace)
08/26/24 14:30
08/26/24 14:30
Vital Signs
Initial and Last Documented VS:
Initial Vital Signs
Temp Pulse Resp BP Pulse Ox
97.8 F 102 16 203/87 97
08/26/24 13:52 08/26/24 13:52 08/26/24 13:52 08/26/24 13:52 08/26/24 13:52
Last Documented Vital Signs
Temp Pulse Resp BP Pulse Ox
97.8 F 97 14 189/87 97
08/26/24 13:52 08/26/24 14:45 08/26/24 14:45 08/26/24 14:00 08/26/24 14:45
MDM/Problems Addressed
Differential Diagnosis Includes:
73yoF here after a fall. Was on the ground for several hours. C/o severe lower back pain. Also has not urinated today which has happened to her in the past. She denies any saddle anesthesia and rectal tone is intact on exam. She is hypertensive with
otherwise stable vitals. Differential diagnosis includes: fracture, soft tissue injury, rhabdomyolysis
Initial ED plan: Check CBC, CMP, CK, UA, and CT lumbar spine. Will give home dose of Oxycontin. Straight cath for retention.
*Critical Care Note
Total Time (30-74mins, 75-104mins- exclusive of procedures): Not Applicable
Update Note
Update Note:
CK mildly elevated at 251. No overt signs of infection on urinalysis. No fractures on lumbar spine CT. Patient continues to report severe low back pain on reassessment and being unable to ambulate. IV Dilaudid ordered. Will admit for PT/OT
evaluations.
ED Attending Note
-
Portions of this chart may have been created with voice recognition software.� Occasional wrong word or��sound alike� substitutions may have occurred due to the inherent limitations of voice recognition software.
Discharge Plan
Departure
Patient Disposition: Admit
Date of Disposition: 08/26/24
Time of Disposition: 17:13
Presentation/result/management discussed w/ accepting MD/DO: Hospitalist
Discharge Problem:
Ground-level fall, Ambulatory dysfunction, Intractable low back pain
Interventions
Interventions:
*Risk Screen - Suicide Last Done: 08/26/24 13:52
*General Assessment Last Done: 08/26/24 13:52
*Neglect/Abuse Screening Last Done: 08/26/24 13:52
*ED- Fall Risk Assessment Last Done: 08/26/24 13:56
*ED COVID-19 Vaccine History Last Done: 08/26/24 13:56
ED-Musculoskeletal Assessment Last Done: 08/26/24 13:52
ED- Neurological Assessment Last Done: 08/26/24 13:52
ED-Skin Assessment Last Done: 08/26/24 13:52
[2024-08-26] MEDS: OXYCONTIN (CONTROLLED RELEASE) 20 MG PO ×2 (14:30→22:00)
[2024-08-26 14:44] LABS: % Basophils 0.4 % (0-2); % Eosinophils 0.2 % (0-6); % Immature Granulocytes 0.5 % (0-0.5); % Monocytes 3.4 % (1.7-9.3); % Neutrophils 85.5 % (42.2-75.2); Absolute Immature Granulocytes 0.1 10^3/uL (0-0.05); Absolute Lymphocytes 1.1 10^3/uL (1.2-3.4); Absolute Monocytes 0.4 10^3/uL (0.1-0.6); Absolute Neutrophils 9.2 10^3/uL (1.4-6.5); Hematocrit 38.2 % (37.0-47.0); Hemoglobin 12.6 g/dL (12.0-16.0); Mean Corpuscular Hgb 28.1 pg (27.0-31.0); Mean Corpuscular Volume 85.3 fL (81.0-99.0); Mean Platelet Volume 10.4 fL (7.4-10.4); Nucleated Red Blood Cells % 0 %; Platelet Count 229 10^3/uL (130-400); Red Blood Cell Count 4.48 10^6/uL (4.20-5.40); Red Cell Dist. Width 13.1 % (11.5-14.5); White Blood Cell Count 10.8 10^3/uL (4.8-10.8)
[2024-08-26 14:54] LABS: Urine Albumin 2+ (Neg - Trace); Urine Bilirubin Negative (Negative); Urine Character Clear (Clear); Urine Color Yellow; Urine Glucose Negative (Negative); Urine Ketone 3+ (Negative); Urine Leukocyte Negative (Negative); Urine Nitrite Negative (Negative); Urine Occult Blood Negative (Negative); Urine Specific Gravity 1.015 (<1.030); Urine Urobilinogen Negative (Neg - 1+)
[2024-08-26 15:12] LABS: Urine Bacteria Moderate (Negative); Urine Red Blood Cell 0-2 /HPF (0-2)
[2024-08-26 16:54] LABS: ALT (SGPT) 15 U/L (0-35); AST (SGOT) 26 U/L (14-36); Albumin 4.2 g/dl (3.5-5.0); Alkaline Phosphatase 93 U/L (38-126); Blood Urea Nitrogen 14 mg/dl (7-17); Calcium 9.4 mg/dl (8.4-10.2); Carbon Dioxide 23 mmol/L (22-30); Chloride 103 mmol/L (98-107); Creatine Phosphokinase 251 U/L (30-135); Estimated Creatinine Clearance 79 ml/min; Glucose 84 mg/dl (70-99); Potassium 4.3 mmol/L (3.5-5.1); Sodium 141 mmol/L (135-145); Total Bilirubin 1.8 mg/dl (0.2-1.3); Total Protein 6.7 g/dl (6.3-8.2); eGFR > 60.00
[2024-08-26] MEDS: TYLENOL 1000 MG PO (17:39)
[2024-08-26] MEDS: TORADOL 15 MG IV (17:40)
[2024-08-26] MEDS: DILAUDID 0.5 MG IV (17:43)
[2024-08-26] MEDS: LIDOCAINE 4% PATCH 1 PATCH TOPICAL (17:45)
--- NOTE | 2024-08-26 17:47 | HPS.HSE ---
Family Physician
-
Family Physician: Marlon Hooks
Chief Complaint
-
mechanical fall
History of Present Illness
73 y/o F, hx of RSD on opiates, hypertension presents to ER with fall. Patient reports fall occured at 5 AM. She was walking in the kitchen this morning and saw a mouse. Startled, she fell backwards landing on her buttocks. She was unable to get up
after the fall and estimates she was on the ground for nearly 12 hours before her daughter found her. She now is having 5/10 back pain, lumbar in location, nonradiating. No saddle anesthesia. She tried ambulating in ER, unable to do so. She denies
any head trauma or LOC with fall. No preceding chest pain, SOB, lightheadedness or other symptoms.
Medical History
Past Medical History
Past Medical History: Reports Other (hx of RSD on opiates, hypertension)
Past Surgical History: Reports Other (Appendectomy, Cholecystectomy, Tonsilectomy and Other)
Social History
Tobacco: Non-smoker
Alcohol: None
Drug: None
Personal:
Living: With Family
Employment: Retired
Family History
Family History: Not pertinent
Allergies / Home Medications
Allergies reflects when Allergies were last updated in [employer].
Home Medications with original date entered in [employer]
Allergy/Medication List:
Allergies
Allergy/AdvReac Type Severity Reaction Status Date / Time
nortriptyline HCl Allergy Tongue Verified 07/17/24 00:48
[From Pamelor] Swelling
Home Medications
acebutolol 200 mg capsule 200 mg PO TID Heart disease/condition 08/18/22
allopurinol 100 mg tablet 300 mg PO DAILY Gout 08/18/22
levocetirizine 5 mg tablet (Xyzal) 5 mg PO DAILYPRN PRN allergies 08/18/22
amitriptyline 100 mg tablet 100 mg PO HS Mental Health/Anxiety 02/12/23
gabapentin 300 mg capsule 300 mg PO TID Pain 02/12/23
oxycodone 20 mg tablet,crush resistant,extended release 12 hr (OxyContin) 20 mg PO TID Pain 3 days #9 tabs 02/15/24
oxycodone-acetaminophen 10 mg-325 mg tablet 1 tab PO Q8HPRN PRN breakthrough pain 08/26/24
zolpidem 10 mg tablet (Ambien) 10 mg PO HS insomnia 08/26/24
Review of Systems
-
A 12 point ROS was completed and negative except as noted: Yes
Physical Exam
Vital Signs
Vital Signs
Temp Pulse Resp BP Pulse Ox
97.8 F 97 14 189/87 97
08/26/24 13:52 08/26/24 14:45 08/26/24 14:45 08/26/24 14:00 08/26/24 14:45
Physical Exam
General: No Apparent Distress
HEENT: NormoCephalic and Anicteric
Respiratory: Clear; No Wheezes or Rales
Cardiac: S1/S2 and Regular Rhythm
GI: Non Distended
Neuro: AO x 3
Psych: Calm
Laboratory Results
-
08/26/24 14:30
08/26/24 14:30
Laboratory Results
Total Bilirubin 1.8 mg/dl (0.2-1.3) H 08/26/24 14:30
AST 26 U/L (14-36) 08/26/24 14:30
ALT 15 U/L (0-35) 08/26/24 14:30
Alkaline Phosphatase 93 U/L (38-126) 08/26/24 14:30
Data Reviewed
-
CT Scan: Report Reviewed by me
Lab Data: Labs Reviewed by me
Impression/Plan
-
Assessment:
Mechanical fall with lower back pain
- OBS admit
- CT: negative for fracture
- CPK 251, slightly abnormal, but not rhabdomyolysis
- pain control
- PT/OT
- orthostatics with usage of opiates and Amitriptyline
Hx of RSD with chronic opioid dependence
- prn Tylenol for mild pain
- Continue OxyContin TID
- continue Percocet q6h prn (q8h prn at home)
- Dilaudid for breakthrough/severe pain pain
- continue home Gabapentin
Essential HTN
- continue Acebutolol
DVT ppx: Lovenox
Code: Full
[2024-08-26] MEDS: SENOKOT-S 1 TABLET PO (22:00)
[2024-08-26] MEDS: AMBIEN 10 MG PO (22:00)
[2024-08-26] MEDS: ROXICODONE 10 MG PO (22:00)
[2024-08-26] MEDS: NEURONTIN 300 MG PO (22:01)
[2024-08-26] MEDS: SECTRAL 200 MG PO (22:01)
[2024-08-26] MEDS: ELAVIL 100 MG PO (22:01)
[2024-08-26] MEDS: LOVENOX 40 MG SC (22:01)
[2024-08-27 07:05] VITALS: BP 119/61
[2024-08-27 07:10] LABS: Hematocrit 35.9 % (37.0-47.0); Hemoglobin 11.4 g/dL (12.0-16.0); Mean Corp Hgb Conc. 31.8 g/dL (33.0-37.0); Mean Corpuscular Hgb 27.7 pg (27.0-31.0); Mean Corpuscular Volume 87.1 fL (81.0-99.0); Mean Platelet Volume 10.9 fL (7.4-10.4); Platelet Count 212 10^3/uL (130-400); Red Blood Cell Count 4.12 10^6/uL (4.20-5.40); Red Cell Dist. Width 13.6 % (11.5-14.5); White Blood Cell Count 8.1 10^3/uL (4.8-10.8)
[2024-08-27 07:40] LABS: ALT (SGPT) 11 U/L (0-35); AST (SGOT) 22 U/L (14-36); Albumin 3.8 g/dl (3.5-5.0); Alkaline Phosphatase 71 U/L (38-126); Blood Urea Nitrogen 20 mg/dl (7-17); Calcium 8.3 mg/dl (8.4-10.2); Carbon Dioxide 18 mmol/L (22-30); Chloride 103 mmol/L (98-107); Estimated Creatinine Clearance 60 ml/min; Glucose 57 mg/dl (70-99); Magnesium 1.8 mg/dl (1.6-2.3); Potassium 4.2 mmol/L (3.5-5.1); Sodium 139 mmol/L (135-145); Total Bilirubin 1.2 mg/dl (0.2-1.3); eGFR > 60.00
[2024-08-27] MEDS: DESENEX/MITRAZOL/ZEASORB 1 APPLIC TOPICAL ×2 (08:18→20:15)
[2024-08-27] MEDS: LIDOCAINE 4% PATCH 1 PATCH TOPICAL (08:18)
[2024-08-27] MEDS: ZYLOPRIM 300 MG PO (08:19)
[2024-08-27] MEDS: FLUSH (NSS) 1 FLUSH IV (08:19)
[2024-08-27] MEDS: OXYCONTIN (CONTROLLED RELEASE) 20 MG PO ×3 (08:19→21:57)
[2024-08-27] MEDS: SECTRAL 200 MG PO ×3 (08:19→21:51)
[2024-08-27] MEDS: NEURONTIN 300 MG PO ×3 (08:19→21:50)
[2024-08-27 08:45] VITALS: BP 137/65; PULSE 82; O2SAT 96
[2024-08-27 09:17] LABS: Creatine Phosphokinase 134 U/L (30-135)
[2024-08-27 09:43] VITALS: BP 137/65; PULSE 81; O2SAT 96
--- NOTE | 2024-08-27 11:06 | W.PN.HOSP.TC ---
Addendum entered and electronically signed by Cele Diaz MD 08/27/24 13:22:
Patient is recommended for discharge to residential facility (SNF) at discharge
Original Note:
Today's Communication/Plan
-
continue pain control, continue PT/OT
DC planning to a SNF
Assessment / Plan
Assessment / Plan
Assessment:
Mechanical fall with lower back pain
- CT: negative for fracture
- CPK 251, now 134
- pain control
- PT/OT - SNF recommended
- orthostatics with usage of opiates and Amitriptyline; when able
Hx of RSD with chronic opioid dependence
- prn Tylenol for mild pain
- Continue OxyContin TID
- continue Percocet q6h prn (q8h prn at home)
- Dilaudid for breakthrough/severe pain pain
- continue home Gabapentin
Essential HTN
- continue Acebutolol
DVT ppx: Lovenox
Code: Full
Anticipated Discharge: 24 - 48 hours
Subjective/Interval History
-
Date of Service: August 27, 2024
resting comfortably, no complaints at present
Objective Data
-
Labs:
Laboratory Results
08/27/24
06:05
WBC 8.1
Hgb 11.4 L
Hct 35.9 L
Plt Count 212
Sodium 139
Potassium 4.2
Chloride 103
Carbon Dioxide 18 L
BUN 20 H
Creatinine 0.9
Glucose 57 L
Calcium 8.3 L
Total Bilirubin 1.2
AST 22
ALT 11
Alkaline Phosphatase 71
Vital Signs:
Vital Signs
Temp Pulse Resp BP Pulse Ox
97.4 F 79 16 119/61 95
08/27/24 07:05 08/27/24 08:19 08/27/24 07:05 08/27/24 08:19 08/27/24 08:16
I&O
08/26/24 08/27/24 08/28/24
06:59 06:59 06:59
Intake Total 120 / 120
Output Total 450 / 450
Balance -330 / -330
Physical Exam
-
General: No Apparent Distress
HEENT: Normocephalic and Atraumatic
Respiratory: Negative Wheezes
Cardiac: Regular Rhythm and S1/S2
GI: Soft and Nontender
Genito-urinary: No Costovertebral Tender
Neuro: AO x 3
Psych: Calm
Data Reviewed
-
Total Time Spent with Patient (in minutes): 41
Labs: Labs Reviewed by me
[2024-08-27] MEDS: ROXICODONE 10 MG PO (13:41)
[2024-08-27] MEDS: TYLENOL 325 MG PO (13:41)
[2024-08-27 15:05] VITALS: BP 133/68; BP 134/72; PULSE 90; PULSE 92
--- NOTE | 2024-08-27 16:42 | PTCARENOTE ---
Pt AAO x3, BRAXTON; OOB to BSC with assist x2/walker, pt very hesitant to attempt OOB activity; will not bear weight, says she cannot stand. VSS. On room air- pulse ox 94%, no SOB noted. Abd obese, soft, kristyn PO. Pt DTV ( str cathed for 525 ml @
1330); able to void only scany amts lt gilmar urine when on BSC. Desenex powder applied to MASD in groin/lower abd skin folds. Resting in bed at present. Will continue to monitor.
--- NOTE | 2024-08-27 16:45 | CM ---
Alert awake oriented patient who lives with her Rodriguez. is now in [place] under hospice care. She lives in 2 story home with 2 steps enter and 13 steps to bed bathroom. She is independent in all activities of daily living.She uses
walker. PT indicates SNF. [facility] letter given signed on chart.Pt is observation and medicare.As per Anaya oconnor rep pt qualifies for waiver program . Offered SNF covered by waiver. She picked [facility].
Never had [facility] hx
Pharmacy [facility]
PCP Dr Dago Mckeon
PLAN To Snf cvered by waiver program
[2024-08-27] MEDS: LOVENOX 40 MG SC (17:40)
[2024-08-27] MEDS: SENOKOT-S 1 TABLET PO (21:50)
[2024-08-27] MEDS: ELAVIL 100 MG PO (21:58)
[2024-08-27] MEDS: AMBIEN 10 MG PO (21:58)
[2024-08-28 07:10] VITALS: BP 131/68; BP 143/72; PULSE 76; PULSE 77
[2024-08-28] MEDS: OXYCONTIN (CONTROLLED RELEASE) 20 MG PO ×3 (07:26→21:43)
[2024-08-28] MEDS: ZYLOPRIM 300 MG PO (07:26)
[2024-08-28] MEDS: SECTRAL 200 MG PO ×3 (07:26→21:46)
[2024-08-28] MEDS: NEURONTIN 300 MG PO ×3 (07:27→21:41)
[2024-08-28] MEDS: LIDOCAINE 4% PATCH 1 PATCH TOPICAL (07:27)
[2024-08-28] MEDS: DESENEX/MITRAZOL/ZEASORB 1 APPLIC TOPICAL ×2 (07:27→21:40)
[2024-08-28] MEDS: SENOKOT-S 1 TABLET PO (10:09)
--- NOTE | 2024-08-28 13:02 | W.PN.HOSP.TC ---
Today's Communication/Plan
-
increase oxycodone prn
Place branham for retention
ongoing PT/OT
Assessment / Plan
Assessment / Plan
Assessment:
Mechanical fall with lower back pain
- CT: negative for fracture
- CPK 251, now 134
- pain control
- PT/OT - SNF recommended
- orthostatics with usage of opiates and Amitriptyline; when able
Hx of RSD with chronic opioid dependence
- prn Tylenol for mild pain
- Continue OxyContin TID
- continue Percocet q6h prn (q8h prn at home) - increase to 15mg q6h prn
- Dilaudid for breakthrough/severe pain pain
- continue home Gabapentin
Essential HTN
- continue Acebutolol
Acute retention
- s/p 4 SC attempts
- will place Branham for acute retention
DVT ppx: Lovenox
Code: Full
Anticipated Discharge: 24 - 48 hours
Subjective/Interval History
-
Date of Service: August 28, 2024
urinary retention requiring multiple SCs. Did have BM
pain remains suboptimal
Objective Data
-
Vital Signs:
Vital Signs
Temp Pulse Resp BP Pulse Ox
97.7 F 76 18 131/68 95
08/28/24 07:10 08/28/24 07:10 08/28/24 07:10 08/28/24 07:10 08/28/24 07:10
I&O
08/27/24 08/28/24 08/29/24
06:59 06:59 06:59
Intake Total 120 / 120 930 / 930 240 / 240
Output Total 450 / 450 525 / 525
Balance -330 / -330 405 / 405 240 / 240
Physical Exam
-
General: No Apparent Distress
HEENT: Normocephalic and Atraumatic
Respiratory: Negative Wheezes
Cardiac: Regular Rhythm and S1/S2
GI: Soft and Nontender
Genito-urinary: No Costovertebral Tender
Neuro: AO x 3
Hematologic / Lymphatic: No Lymphadenopathy
Psych: Calm
Data Reviewed
-
Total Time Spent with Patient (in minutes): 42
Labs: Labs Reviewed by me
[2024-08-28] MEDS: ROXICODONE 10 MG PO (13:04)
--- NOTE | 2024-08-28 14:29 | PTCARENOTE ---
16 fr branham placed after 1st attempt. patient put out 525 ml of clear yellow urine.
[2024-08-28 15:09] VITALS: BP 154/64
[2024-08-28] MEDS: LOVENOX 40 MG SC (17:10)
--- NOTE | 2024-08-28 17:58 | CM ---
Pt qualifies for [employer] waiver .
Dgt Maddi [phone] she requested [facility] for SNf Referral placed .
Spoke with Rhonda at [facility] she said their was no bed.
Dgt informed she needed to provide another [employer] waiver SNF.
Dgt said she would call back . She was going to check [facility] . Referral placed.
Mirtha at [facility] said pt was accepted.
Alexander Azar [phone] was on till 4 pm today .
Alexandra placed.
Dgt did not call back.
MD note saying pt needs SNF faxed to Delfino at [facility] [phone]..
CM confirm with dgt which [employer] perfered SNF choice.
CM to call [facility] waiver at [phone] option 2 from 8 am to 12 noon Sat.
PLAN Speak with dgt confirm SNF Call [facility] to confirm waiver
[2024-08-28] MEDS: ELAVIL 100 MG PO (21:41)
[2024-08-28] MEDS: AMBIEN 10 MG PO (21:43)
[2024-08-28 23:02] VITALS: BP 137/65
[2024-08-29 06:22] LABS: Hematocrit 34.2 % (37.0-47.0); Hemoglobin 11.1 g/dL (12.0-16.0); Mean Corp Hgb Conc. 32.5 g/dL (33.0-37.0); Mean Corpuscular Volume 86.1 fL (81.0-99.0); Mean Platelet Volume 10.4 fL (7.4-10.4); Platelet Count 211 10^3/uL (130-400); Red Blood Cell Count 3.97 10^6/uL (4.20-5.40); Red Cell Dist. Width 13.5 % (11.5-14.5); White Blood Cell Count 5.6 10^3/uL (4.8-10.8)
[2024-08-29 06:46] LABS: Blood Urea Nitrogen 15 mg/dl (7-17); Calcium 8.5 mg/dl (8.4-10.2); Carbon Dioxide 28 mmol/L (22-30); Chloride 104 mmol/L (98-107); Estimated Creatinine Clearance 77 ml/min; Glucose 98 mg/dl (70-99); Sodium 141 mmol/L (135-145); eGFR > 60.00
[2024-08-29 07:10] VITALS: BP 160/78; BP 184/82; PULSE 77; PULSE 80
[2024-08-29] MEDS: LIDOCAINE 4% PATCH 1 PATCH TOPICAL (08:02)
[2024-08-29] MEDS: ZYLOPRIM 300 MG PO (08:02)
[2024-08-29] MEDS: OXYCONTIN (CONTROLLED RELEASE) 20 MG PO ×2 (08:02→16:00)
[2024-08-29] MEDS: SECTRAL 200 MG PO ×2 (08:02→16:03)
[2024-08-29] MEDS: NEURONTIN 300 MG PO ×2 (08:02→16:00)
[2024-08-29] MEDS: DESENEX/MITRAZOL/ZEASORB 1 APPLIC TOPICAL (08:03)
--- NOTE | 2024-08-29 09:04 | CM ---
Chart reviewed. Patient requiring SNF and will be using Medicare waiver at facility.
CM spoke w/ daughter, Maddi, to confirm if agreeable to [facility] as they accepted patient, Maddi agreeable as she toured it.
Spoke w/ Mirtha/[facility] admissions, confirmed patient can admit today
CM called [facility], spoke w/ Cheri, regarding waiver for [facility]. Per Cheri, will reach out to [facility] to confirm they have all the needed information for waiver and will call CM back
Updated hospitalist, agreeable to d/c this afternoon, pending renal US results
Patient will need ambulance transport, will provide forms to to arrange
[facility] SNF
Report: [phone]

Plan: D/c to [facility] rehab
--- NOTE | 2024-08-29 10:17 | W.PN.HOSP.TC ---
Today's Communication/Plan
-
dc to SNF after renal US resulted and CM confirms bed/auth
Assessment / Plan
Assessment / Plan
Assessment:
Mechanical fall with lower back pain
- CT: negative for fracture
- CPK 251, now 134
- pain control
- PT/OT - SNF recommended
- orthostatics with usage of opiates and Amitriptyline; when able
Hx of RSD with chronic opioid dependence
- prn Tylenol for mild pain
- Continue OxyContin TID
- continue Percocet q6h prn (q8h prn at home) - increase to 15mg q6h prn
- Dilaudid for breakthrough/severe pain pain
- continue home Gabapentin
Essential HTN
- continue Acebutolol
Acute retention
- s/p 4 SC attempts
- continue Alexandra per retention protocol
- renal US
DVT ppx: Lovenox
Code: Full
More than 30 minutes spent in discharge including
Final examination of the patient
Summarizing hospital stay
Instructions for continuing care to all relevant caregivers
Preparation of discharge records, prescriptions, and referral forms
Total time spent (in minutes): 41
Anticipated Discharge: Today
Subjective/Interval History
-
Date of Service: August 29, 2024
resting comfortably, no complaints
Objective Data
-
Labs:
Laboratory Results
08/29/24
05:27
WBC 5.6
Hgb 11.1 L
Hct 34.2 L
Plt Count 211
Sodium 141
Potassium 4.0
Chloride 104
Carbon Dioxide 28
BUN 15
Creatinine 0.7
Glucose 98
Calcium 8.5
Vital Signs:
Vital Signs
Temp Pulse Resp BP Pulse Ox
98.2 F 77 18 160/78 100
08/29/24 07:10 08/29/24 07:10 08/29/24 07:10 08/29/24 07:10 08/29/24 07:10
I&O
08/28/24 08/29/24 08/30/24
06:59 06:59 06:59
Intake Total 930 / 930 800 / 800 300 / 300
Output Total 525 / 525 1050 / 1050
Balance 405 / 405 -250 / -250 300 / 300
Physical Exam
-
General: No Apparent Distress
HEENT: Normocephalic and Atraumatic
Respiratory: Negative Wheezes
Cardiac: Regular Rhythm and S1/S2
GI: Soft and Nontender
Genito-urinary: Alexandra
Neuro: AO x 3
Psych: Calm
Data Reviewed
-
Total Time Spent with Patient (in minutes): 42
Labs: Labs Reviewed by me
--- NOTE | 2024-08-29 10:25 | W.DS.TRANS ---
DC Summary - Dog Groomer
-
Discharge Instructions:
Discharge Diagnosis/Procedures mechanical fall, acute on chronic generalized
pain, ambulatory dysfunction, urinary retention
Diet Regular
Activity As tolerated
Bathing Restrictions None
Instructions:
Stand-Alone Forms:
Changes to Home Medications: No
Discharge Medications:
DC Medications w/original date entered in [facility]
acebutolol 200 mg capsule 200 mg PO TID Heart disease/condition 08/18/22
allopurinol 100 mg tablet 300 mg PO DAILY Gout 08/18/22
levocetirizine 5 mg tablet (Xyzal) 5 mg PO DAILYPRN PRN allergies 08/18/22
amitriptyline 100 mg tablet 100 mg PO HS Mental Health/Anxiety 02/12/23
gabapentin 300 mg capsule 300 mg PO TID Pain 02/12/23
acetaminophen 325 mg tablet 650 mg (2 x 325 mg) PO Q4HPRN PRN mild pain/SEAY/temp> 100.4F #100 tabs 08/29/24
lidocaine 4 % topical patch 1 patch topical DAILY #30 ea 08/29/24
oxycodone 20 mg tablet,crush resistant,extended release 12 hr (OxyContin) 20 mg PO TID Pain 7 days #21 tabs 08/29/24
oxycodone 5 mg tablet 15 mg (3 x 5 mg) PO Q6H PRN Pain #40 tabs 08/29/24
zolpidem 10 mg tablet (Ambien) 10 mg PO HS insomnia #5 tabs 08/29/24
Home Medication Changes
Pending Results: No
Total time spent discharging patient (in min): 41
[2024-08-29] MEDS: DILAUDID 0.5 MG IV (14:10)
[2024-08-29 15:16] VITALS: BP 174/78
[2024-08-29] MEDS: APRESOLINE 5 MG IV (16:06)
[2024-08-29 16:16] VITALS: BP 174/78
[2024-08-29 17:26] VITALS: BP 154/75
[2024-08-29] MEDS: LOVENOX 40 MG SC (17:28)
== END 2024-08-29 18:30 ==
LOC: 4 EAST ACU 18:21
PROVIDERS: Physician Assistant; ADMITTING PHYSICIAN Internal Medicine; EMERGENCY PHYSICIAN Emergency Medicine; FAMILY PHYSICIAN Internal Medicine
DX: M54.50 Low back pain, unspecified (principal); F11.20 Opioid dependence, uncomplicated; I10 Essential (primary) hypertension; R33.9 Retention of urine, unspecified; W18.30XA Fall on same level, unspecified, initial encounter
CPT/HCPCS: 51701; 72131; 74178; 76770; 80048; 80053; 81003; 81015; 82550; 83735; 85025; 85027; 87086; 96374; 96375; 97163; 97167; 99285; G0378; Q9967

== ENCOUNTER 2024-09-12 17:16 | Emergency (ER) | payer MEDICARE, SELFPAY ==
[2024-09-12] VITALS (10 sets, daily range): BP systolic 110–141; BP diastolic 50–69; BMI 29.0
[2024-09-12] MEDS: DELTASONE 50 MG PO (18:06)
--- NOTE | 2024-09-12 18:14 | ED.GENMED ---
History of Present Illness
General
Chief Complaint: Back Pain
Source: patient
Time Seen by Provider: 09/12/24 17:20
History of Present Illness
History of Present Illness:
This is a 73-year-old female who states she is not really sure why she is here. However the patient does admit she has had persistent back pain. Patient was recently seen after a fall and has had pain since then. She states she went to rehab but
has not had a good experience. She has not been able to walk like she usually does with a walker because of pain. She also has a Alexandra catheter in since then. She denies any saddle anesthesia. The patient is a nurse. She denies any lower
extremity numbness or tingling. Denies any lower extremity weakness. She has pain tender right of the lower lumbar area she reports. Patient also states that she had an that she will constipation but does not feel she is constipated. She states
she is only here because they sent her here. She does suspect her daughter was concerned and wanted them to send her. The patient states that she has not followed up with any specialist since being discharged from the hospital
Past History
Past History
ED Past Medical History: Cancer (Breast cancer), HTN and Other (RSD)
ED Past Surgical History: Appendectomy, Cholecystectomy, Tonsilectomy and Other
Social History
Tobacco: Non-smoker
Alcohol: None
Drug: None
Personal:
Living: with family
Employment: Retired
Phy Exam
Physical Exam
Physical Exam:
CONSTITUTIONAL Patient alert and oriented to person, place and time. Well-appearing. Vital signs reviewed.
HEAD atraumatic, normocephalic.
EYES eyelids normal to inspection, Extraocular muscles intact, Conjunctiva normal, Sclera normal.
NECK normal range of motion, Trachea midline, no jugular venous distention.
RESPIRATORY CHEST No respiratory distress noted, Chest expansion equal, Bilateral breath sounds clear.
CARDIOVASCULAR regular rate and rhythm, Heart sounds normal.
ABDOMEN abdomen nontender, Bowel sounds normal. No distention. Alexandra catheter noted in place.
BACK normal inspection, no obvious deformities, no rash. Lighted Derm patch noted. She has tenderness to the right paraspinal region just to the right of L4/L5.
UPPER EXTREMITY range of motion normal, Motor strength normal, no cyanosis, no edema.
LOWER EXTREMITY range of motion normal, Motor strength normal, no cyanosis, trace bilateral edema.
NEURO Speech normal, No focal motor deficits, [place] coma scale 15, Memory normal, Cranial Nerves intact to screening exam.
SKIN skin warm, dry, and normal in color.
Course
Orders/Labs/Results
Orders:
Orders
09/12/24 17:45
Prednisone [Deltasone] 50 mg PO NOW STA
09/12/24 18:45
Electrocardiogram (*1) Stat
Reason for Study: Other
Other Reason for Exam: chest pain
Cardiac Monitoring- Treatment ONCE
EKG- Treatment ONCE
CR Chest - 2 Views Urgent
Comment:
Reason For Exam: LE edema, hypoxia
09/12/24 19:03
Complete Blood Count/With Diff Urgent
Comprehensive Metabolic Panel Urgent
NT-proBNP Urgent
09/12/24 19:39
CT Chest PE Study Urgent
Comment:
Reason For Exam: hypoxia
09/12/24 21:57
Oxycodone [Roxicodone] 15 mg PO NOW STA
Abnormal Lab Results
09/12/24
19:03
RBC 4.02 L 10^6/uL
(4.20-5.40)
Hgb 11.4 L g/dL
(12.0-16.0)
Hct 36.1 L %
(37.0-47.0)
MCHC 31.6 L g/dL
(33.0-37.0)
MPV 10.6 H fL
(7.4-10.4)
Carbon Dioxide 34 H mmol/L
(22-30)
Glucose 171 H mg/dl
(70-99)
09/12/24 19:03
09/12/24 19:03
Vital Signs
Initial and Last Documented VS:
Initial Vital Signs
Temp Pulse Resp BP Pulse Ox
97.9 F 90 19 141/50 93
09/12/24 17:22 09/12/24 17:22 09/12/24 17:22 09/12/24 17:22 09/12/24 17:22
Last Documented Vital Signs
Temp Pulse Resp BP Pulse Ox
97.9 F 80 18 115/57 96
09/12/24 17:22 09/12/24 22:00 09/12/24 20:35 09/12/24 22:00 09/12/24 22:00
MDM/Problems Addressed
MDM/Problems Addressed:
Low back pain, indwelling Alexandra catheter
*Radiology
Radiology exam reviewed: all reviewed NAD by ED Provider
*Pulse Oximetry
Patient hypoxic: no
*EKG
Interpreted by ED Provider?: Yes
Interpretation: normal
Rate: normal
Rhythm: sinus
[place]: normal axis
QRS Pattern: normal QRS
Ischemia: no ischemia
*Chemistry Faculty Member Interpretation
Rate: normal
Interpretation: normal
Rhythm: sinus
*Critical Care Note
Total Time (30-74mins, 75-104mins- exclusive of procedures): Not Applicable
Data Reviewed
Review of Other/Old Records Reveals: Progress Notes (Hospitalist progress notes from August 2024.)
Source: patient
Patient Management
Escalation/DeEscalation of care consider admission/obs:
CTA negative for PE. Patient at baseline. Does need some outpatient follow-up including spine follow-up as well as urology follow-up. May benefit from outpatient MRI. Patient admits she is cannot get an MRI due to claustrophobia so may benefit
from open MRI. No evidence of cauda equina syndrome. Okay for discharge and outpatient follow-up. Trial course of steroids
ED Attending Note
-
Portions of this chart may have been created with voice recognition software.� Occasional wrong word or��sound alike� substitutions may have occurred due to the inherent limitations of voice recognition software.
Discharge Plan
Departure
Patient Disposition: Home (Routine Discharge)
Date of Disposition: 09/12/24
Time of Disposition: 22:15
Patient with high blood pressure during this ER visit?: No
Discharge Problem:
Low back pain
Instructions: Low Back Pain (DC)
Prescriptions:
New
prednisone 10 mg Tablet
See Rx Instructions .ROUTE .COMPLEX Qty: 45 0RF
Rx Instructions:
Take By Mouth:
50 mg daily x3 days, 40 mg daily x3 days,
30 mg daily x3 days, 20 mg daily x3 days,
10 mg daily x3 days
No Action
allopurinol 100 mg Tablet
300 mg PO DAILY
acebutolol 200 mg Capsule
200 mg PO TID
levocetirizine [Xyzal] 5 mg Tablet
5 mg PO DAILYPRN PRN (Reason: allergies)
gabapentin 300 mg capsule
300 mg PO TID
amitriptyline 100 mg tablet
100 mg PO HS
lidocaine 4 % Adhesive Patch,Medicated
1 patch topical DAILY Qty: 30 0RF
zolpidem [Ambien] 10 mg tablet
10 mg PO HS Qty: 5 0RF
oxycodone [OxyContin] 20 mg tablet,oral only,ext.rel.12 hr
20 mg PO TID 7 Days Qty: 21 0RF
oxycodone 15 mg Tablet
15 mg PO Q6H PRN (Reason: moderate pain)
phenazopyridine [Pyridium] 100 mg Tablet
100 mg PO TID
docusate sodium [Colace] 100 mg Capsule
100 mg PO BID
magnesium hydroxide [Milk of Magnesia] 400 mg/5 mL Suspension
30 ml PO ONCE PRN (Reason: constipation)
bisacodyl [Dulcolax (bisacodyl)] 10 mg Suppository
10 mg MD ONCE
Fleet Enema 19-7 gram/118 mL Enema
118 ml MD ONCE PRN (Reason: constipation)
acetaminophen 325 mg tablet
650 mg PO Q6HPRN PRN (Reason: mild pain/SEAY/temp> 100.4F)
Referrals:
Peng Vasques MD [Active] -
Aristeo Echeverria MD [Active] -
Florencio Hooks MD [Family Provider] -
Activity Restrictions/Additional Instructions:
Outpatient follow-up with urology and a it communications specialist is recommended in the next 1 to 2 weeks. In addition, outpatient MRI may be beneficial for further evaluation. Return immediately for leg numbness, leg pain, fevers, vomiting, worsening
pain, or any other concerns.
Interventions
Interventions:
*Risk Screen - Suicide Last Done: 09/12/24 17:22
*General Assessment Last Done: 09/12/24 17:48
*Neglect/Abuse Screening Last Done: 09/12/24 17:22
*ED- Fall Risk Assessment Last Done: 09/12/24 17:22
*ED COVID-19 Vaccine History Last Done: 09/12/24 17:22
ED-Musculoskeletal Assessment Last Done: 09/12/24 17:33
Discharge Date and Time
Print Language: GEORGIAN
[2024-09-12 19:09] LABS: % Basophils 0.7 % (0-2); % Eosinophils 3.3 % (0-6); % Immature Granulocytes 0.3 % (0-0.5); % Lymphocytes 32.7 % (20.5-51.1); Absolute Basophils 0.1 10^3/uL (0-0.2); Absolute Eosinophils 0.2 10^3/uL (0-0.7); Absolute Lymphocytes 2.4 10^3/uL (1.2-3.4); Absolute Monocytes 0.4 10^3/uL (0.1-0.6); Absolute Neutrophils 4.2 10^3/uL (1.4-6.5); Hematocrit 36.1 % (37.0-47.0); Hemoglobin 11.4 g/dL (12.0-16.0); Mean Corp Hgb Conc. 31.6 g/dL (33.0-37.0); Mean Corpuscular Hgb 28.4 pg (27.0-31.0); Mean Corpuscular Volume 89.8 fL (81.0-99.0); Mean Platelet Volume 10.6 fL (7.4-10.4); Nucleated Red Blood Cells % 0 %; Platelet Count 226 10^3/uL (130-400); Red Blood Cell Count 4.02 10^6/uL (4.20-5.40); Red Cell Dist. Width 13.5 % (11.5-14.5); White Blood Cell Count 7.2 10^3/uL (4.8-10.8)
[2024-09-12 19:24] LABS: ALT (SGPT) 12 U/L (0-35); AST (SGOT) 19 U/L (14-36); Albumin 4.1 g/dl (3.5-5.0); Alkaline Phosphatase 90 U/L (38-126); Blood Urea Nitrogen 13 mg/dl (7-17); Calcium 9.1 mg/dl (8.4-10.2); Carbon Dioxide 34 mmol/L (22-30); Chloride 99 mmol/L (98-107); Estimated Creatinine Clearance 61 ml/min; Glucose 171 mg/dl (70-99); Potassium 4.3 mmol/L (3.5-5.1); Sodium 141 mmol/L (135-145); Total Bilirubin 0.5 mg/dl (0.2-1.3); Total Protein 6.5 g/dl (6.3-8.2); eGFR > 60.00
[2024-09-12 19:29] LABS: NT-proBNP 50.6 pg/ml
[2024-09-12] MEDS: OXYCONTIN (CONTROLLED RELEASE) 20 MG PO (22:29)
== END 2024-09-13 00:18 | disposition home or self-care (01) ==
LOC: EMR 17:16
PROVIDERS: EMERGENCY PHYSICIAN Emergency Medicine; FAMILY PHYSICIAN Internal Medicine
DX: M54.50 Low back pain, unspecified (principal); K59.00 Constipation, unspecified; I10 Essential (primary) hypertension; Z85.3 Personal history of malignant neoplasm of breast; Z90.49 Acquired absence of other specified parts of digestive tract
CPT/HCPCS: 99284; 71046; 71275; 80053; 83880; 85025; 93005; Q9967

== ENCOUNTER → 2024-10-05 11:24 | Outpatient (REF) | payer OTHER, MEDICARE, SELFPAY ==
[2024-10-05 12:00] LABS: Hematocrit 27.8 % (37.0-47.0); Hemoglobin 8.5 g/dL (12.0-16.0); Mean Corp Hgb Conc. 30.6 g/dL (33.0-37.0); Mean Corpuscular Hgb 29.1 pg (27.0-31.0); Mean Corpuscular Volume 95.2 fL (81.0-99.0); Mean Platelet Volume 10.2 fL (7.4-10.4); Platelet Count 363 10^3/uL (130-400); Red Blood Cell Count 2.92 10^6/uL (4.20-5.40); Red Cell Dist. Width 16.2 % (11.5-14.5); White Blood Cell Count 6.7 10^3/uL (4.8-10.8)
[2024-10-05 13:17] LABS: ALT (SGPT) 13 U/L (0-35); AST (SGOT) 23 U/L (14-36); Albumin 3.6 g/dl (3.5-5.0); Alkaline Phosphatase 98 U/L (38-126); Blood Urea Nitrogen 13 mg/dl (7-17); Calcium 9.3 mg/dl (8.4-10.2); Carbon Dioxide 30 mmol/L (22-30); Chloride 104 mmol/L (98-107); Glucose 101 mg/dl (70-99); Magnesium 1.6 mg/dl (1.6-2.3); Potassium 4.8 mmol/L (3.5-5.1); Sodium 139 mmol/L (135-145); Total Bilirubin 0.4 mg/dl (0.2-1.3); eGFR > 60.00
== END ==
LOC: OLABWHC 11:24
PROVIDERS: ATTENDING PHYSICIAN Family Medicine
DX: M43.26 Fusion of spine, lumbar region (principal); I10 Essential (primary) hypertension; N39.0 Urinary tract infection, site not specified
CPT/HCPCS: 36415; 80053; 83735; 85027

== ENCOUNTER → 2024-11-03 10:27 | Outpatient (REF) | payer OTHER, MEDICARE, SELFPAY ==
[2024-11-03 11:22] LABS: Hematocrit 28.4 % (37.0-47.0); Hemoglobin 8.8 g/dL (12.0-16.0); Mean Corp Hgb Conc. 31.0 g/dL (33.0-37.0); Mean Corpuscular Volume 90.7 fL (81.0-99.0); Platelet Count 231 10^3/uL (130-400); Red Cell Dist. Width 14.2 % (11.5-14.5)
[2024-11-03 11:40] LABS: Blood Urea Nitrogen 12 mg/dl (7-17); Calcium 8.0 mg/dl (8.4-10.2); Carbon Dioxide 32 mmol/L (22-30); Chloride 103 mmol/L (98-107); Glucose 96 mg/dl (70-99); Magnesium 1.5 mg/dl (1.6-2.3); Potassium 3.3 mmol/L (3.5-5.1); Sodium 141 mmol/L (135-145); eGFR > 60.00
== END ==
LOC: OLABWHC 10:27
PROVIDERS: ATTENDING PHYSICIAN Family Medicine
DX: I10 Essential (primary) hypertension (principal); G95.20 Unspecified cord compression
CPT/HCPCS: 36415; 80048; 83735; 85027

== ENCOUNTER → 2025-01-01 10:14 | Outpatient (REF) | payer MEDICARE, SELFPAY ==
[2025-01-01 12:21] LABS: Hematocrit 33.9 % (37.0-47.0); Hemoglobin 10.4 g/dL (12.0-16.0); Mean Corp Hgb Conc. 30.7 g/dL (33.0-37.0); Mean Corpuscular Volume 85.8 fL (81.0-99.0); Nucleated Red Blood Cells % 0 %; Platelet Count 204 10^3/uL (130-400); Red Cell Dist. Width 14.6 % (11.5-14.5)
[2025-01-01 12:41] LABS: ALT (SGPT) 11 U/L (0-35); AST (SGOT) 21 U/L (14-36); Albumin 4.4 g/dl (3.5-5.0); Alkaline Phosphatase 95 U/L (38-126); Blood Urea Nitrogen 22 mg/dl (7-17); Calcium 9.3 mg/dl (8.4-10.2); Carbon Dioxide 36 mmol/L (22-30); Chloride 98 mmol/L (98-107); Glucose 98 mg/dl (70-99); HDL Cholesterol 57 mg/dl; LDL Cholesterol, Calculated 151 mg/dl; Magnesium 2.0 mg/dl (1.6-2.3); Potassium 4.4 mmol/L (3.5-5.1); Sodium 140 mmol/L (135-145); Total Protein 7.2 g/dl (6.3-8.2); Very Low Density Lipoprotein 33 mg/dl (0-30); eGFR 58.75
[2025-01-01 13:29] LABS: Vitamin B12 182 pg/ml (239-931)
== END ==
LOC: HWLAB 10:14
PROVIDERS: ATTENDING PHYSICIAN Internal Medicine
DX: E78.5 Hyperlipidemia, unspecified (principal); I10 Essential (primary) hypertension; E53.8 Deficiency of other specified B group vitamins; R63.5 Abnormal weight gain
CPT/HCPCS: 36415; 80053; 80061; 82607; 83735; 85025

== ENCOUNTER 2025-01-12 18:16 | Inpatient (IN) | payer MEDICARE, SELFPAY ==
[2025-01-12] VITALS (22 sets, daily range): BP systolic 86–128; BP diastolic 42–85; BMI 27.6; BMI 26.7
[2025-01-12 15:10] LABS: Hematocrit 32.5 % (37.0-47.0); Hemoglobin 9.9 g/dL (12.0-16.0); Mean Corp Hgb Conc. 30.5 g/dL (33.0-37.0); Mean Corpuscular Volume 85.3 fL (81.0-99.0); Nucleated Red Blood Cells % 0 %; Platelet Count 221 10^3/uL (130-400); Red Cell Dist. Width 15.0 % (11.5-14.5)
[2025-01-12 15:18] LABS: ALT (SGPT) < 10 U/L (0-35); AST (SGOT) 18 U/L (14-36); Albumin 4.4 g/dl (3.5-5.0); Alkaline Phosphatase 83 U/L (38-126); Blood Urea Nitrogen 41 mg/dl (7-17); Calcium 8.7 mg/dl (8.4-10.2); Carbon Dioxide 36 mmol/L (22-30); Estimated Creatinine Clearance 21 ml/min; Glucose 89 mg/dl (70-99); Total Protein 6.9 g/dl (6.3-8.2); eGFR 21.62
[2025-01-12] MEDS: NSS 1000 IV (15:20)
--- NOTE | 2025-01-12 15:26 | ED.GENMED ---
History of Present Illness
General
Chief Complaint: Musculo-Skeletal Complaint
Source: patient and family (Daughter)
Exam Limitations: none
Time Seen by Provider: 01/12/25 15:10
Nursing documentation reviewed up to this point in time: agreed with
History of Present Illness
History of Present Illness:
74-year-old female with past medical history of hypertension, complex regional pain syndrome, recent back surgery at [facility] who presents to the ER with her daughter for evaluation of 'muscle spasms' and lethargy. Patient reports that she has
had chronic occasional muscle spasms/twitches throughout her body. It sounds like today symptoms have been much worse she is apparently having twitches/spasms consistently throughout her entire body. Daughter also reports that she is much more
lethargic today�daughter states that when she went to pick her mother up today she found her sitting in chair slumped over and had to shake her to arouse her and it appeared to her pupils were constricted. Daughter is concerned that her
electrolytes may be off�apparently patient has had issues with her B12 recently. Daughter is also worried that patient may have unintentionally taken too much of her oxycodone which she takes chronically for low back pain. In addition to above
patient reports that she has had some difficulty urinating today says that she has not had the urge to urinate.
Past History
Past History
ED Past Medical History: Cancer (Breast cancer), HTN and Other (RSD)
ED Past Surgical History: Appendectomy, Cholecystectomy, Tonsilectomy and Other
Social History
Tobacco: Non-smoker
Alcohol: None
Drug: None
Personal:
Living: with family
Employment: Retired
Review of Systems
Review of Systems
All Other Systems: ROS reviewed and negative except as documented in HPI and ROS
Constitutional: Reports fatigue; Denies fever
Respiratory: Denies trouble breathing
Cardiac: Denies chest pain
ABD/GI: Denies abdominal pain, vomiting or diarrhea
: Reports difficulty voiding; Denies flank pain
Musculoskeletal: Denies edema
Neurological: Reports other (Muscle spasms); Denies dizzy or headache
Phy Exam
Physical Exam
Physical Exam:
General: Awake, alert; no acute distress
Head: Normocephalic, atraumatic
Eyes: Conjunctiva normal
Throat: Airway intact, handling secretions
Neck: Trachea midline, supple without meningismus
Lungs: Clear to auscultation bilaterally, no wheezing, rales, rhonchi
Heart: Regular rate and rhythm, no murmurs, gallops, or rubs
Abd: Soft, non distended, nontender�no palpable bladder
Back: Well-healed surgical scar in the lumbar region, no midline thoracic or lumbar tenderness or tenderness in the paraspinal regions
Neuro: Occasional involuntary muscle twitches noted in both the arms and the legs; motor and sensory appears to be intact in all extremities; cranial nerves are intact
Skin: No rash noted
Extremities: Trace edema in the legs bilaterally, good pulses throughout all extremities
Scores
Heart Failure Risk
Heart Failure Risk Score: Not Applicable
Heart Score for Chest Pain Patients
STEMI patient?: Not applicable
Withdrawal Assessment of Alcohol
Withdrawal Assessment Completed?: Not applicable
Course
Orders/Labs/Results
Orders:
Orders
01/12/25 14:50
Electrocardiogram (*1) Urgent
Reason for Study: Other
Other Reason for Exam: hypotension
EKG- Treatment ONCE
01/12/25 14:55
CMP [Comprehensive Metabolic Panel] Urgent
Complete Blood Count/With Diff Urgent
01/12/25 15:19
0.9% Sodium Chloride 1000 ml [Nss] 1,000 ml IV BOLUS
01/12/25 15:24
Bladder Scan- Treatment ONCE
Alexandra Placement- Treatment ONCE
Reason for insertion: Acute Retention
01/12/25 15:41
MR Lumbar Without Contrast Urgent
Comment:
Reason For Exam: urinary retention and involuntary muscle spasms
Recent pill cam endoscopy?: No
MR Thoracic Spine Without Urgent
Comment:
Reason For Exam: urinary retention and involuntary muscle spasms
Recent pill cam endoscopy?: No
01/12/25 15:47
B12 [Vitamin B12] Urgent
Folate Urgent
Magnesium Urgent
01/12/25 15:48
Osmolality, Random Urine Urgent
Date Specimen was Collected: 01/12/25
Time Specimen was Collected: 15:41
Urinalysis Reflex To Culture Urgent
Date Specimen was Collected: 01/12/25
Time Specimen was Collected: 15:41
Urine Creatinine Urgent
Date Specimen was Collected: 01/12/25
Time Specimen was Collected: 15:41
Urine Protein/Creat Ratio (Random) [Protein/Creat Ratio (Random)] Urgent
Date Specimen was Collected: 01/12/25
Time Specimen was Collected: 15:41
Urine Sodium Urgent
Date Specimen was Collected: 01/12/25
Time Specimen was Collected: 15:41
Abnormal Lab Results
01/12/25
14:55
RBC 3.81 L 10^6/uL
(4.20-5.40)
Hgb 9.9 L g/dL
(12.0-16.0)
Hct 32.5 L %
(37.0-47.0)
MCH 26.0 L pg
(27.0-31.0)
MCHC 30.5 L g/dL
(33.0-37.0)
RDW 15.0 H %
(11.5-14.5)
MPV 11.0 H fL
(7.4-10.4)
Absolute Monos (auto) 0.7 H 10^3/uL
(0.1-0.6)
Chloride 96 L mmol/L
(98-107)
Carbon Dioxide 36 H mmol/L
(22-30)
BUN 41 H mg/dl
(7-17)
Creatinine 2.3 H mg/dL
(0.6-1.0)
01/12/25 14:55
01/12/25 14:55
Vital Signs
Initial and Last Documented VS:
Initial Vital Signs
BP
89/50
01/12/25 14:43
Last Documented Vital Signs
Temp Pulse Resp BP Pulse Ox
36.6 C 80 23 101/64 95
01/12/25 15:02 01/12/25 16:00 01/12/25 16:00 01/12/25 15:53 01/12/25 15:28
MDM/Problems Addressed
Differential Diagnosis Includes:
Electrolyte derangement, dehydration, neuropathy, cauda equina syndrome
MDM/Problems Addressed:
74-year-old female presents for evaluation of involuntary muscle twitching/spasms worse today than usual as well as increased lethargy today. She also reports that she has not urinated today. She is hypotensive here with a blood pressure 89/50 but
has otherwise normal vitals. Physical exam as above. Bladder scan showed 280 cc retained urine. Will plan to place Alexandra catheter. Patient had IV placed and triage labs were sent off including a CBC which shows stable anemia and a CMP which
shows acute renal insufficiency with a creatinine of 2.3 from a baseline of less than 1. Electrolytes are still pending. Added magnesium level as well as B12 level at patient's request. Will send for MRI given urinary retention and new neurologic
symptoms in the extremities. Case discussed with neurology for consultation. Will admit for continued management given significant renal dysfunction�discussed with hospitalist for admission.
*Radiology
Radiology exam reviewed: radiology read reviewed
*Pulse Oximetry
SaO2: 95
Oxygen Mode of Delivery: Room air
Patient hypoxic: no (95%)
*Critical Care Note
Total Time (30-74mins, 75-104mins- exclusive of procedures): Not Applicable
Data Reviewed
Review of Other/Old Records Reveals: Labs and Records
Source: patient, records and family
Patient Management
Discussion with other providers: Hospitalist (Discussed with hospitalist) and Clinical Informatics Specialist (Discussed with neurologist)
Escalation/DeEscalation of care consider admission/obs:
Admission indicated
ED Attending Note
-
Portions of this chart may have been created with voice recognition software.� Occasional wrong word or��sound alike� substitutions may have occurred due to the inherent limitations of voice recognition software.
Discharge Plan
Departure
Patient Disposition: Admit
Date of Disposition: 01/12/25
Time of Disposition: 16:22
Admit to doctor: Daphne
Presentation/result/management discussed w/ accepting MD/DO: Hospitalist
Discharge Problem:
DANYEL (acute kidney injury), Acute urinary retention
Prescriptions:
No Action
acebutolol 200 mg Capsule
200 mg PO DAILY
gabapentin 300 mg capsule
600 mg PO HS
cyclobenzaprine [Flexeril] 10 mg Tablet
10 mg PO BID
gabapentin 300 mg Capsule
300 mg PO BID
allopurinol 300 mg Tablet
300 mg PO DAILY
furosemide [Lasix] 20 mg Tablet
20 mg PO DAILY
duloxetine [Cymbalta] 60 mg Capsule,Delayed Release(Dr/Ec)
60 mg PO BID
Interventions
Interventions:
*Risk Screen - Suicide Last Done: 01/12/25 14:53
*General Assessment Last Done: 01/12/25 14:52
*Neglect/Abuse Screening Last Done: 01/12/25 14:52
*ED- Fall Risk Assessment Last Done: 01/12/25 14:57
*ED COVID-19 Vaccine History Last Done: 01/12/25 14:57
ED-Musculoskeletal Assessment Last Done: 01/12/25 14:54
Discharge Date and Time
Print Language: FAROESE
[2025-01-12 15:39] LABS: Chloride 96 mmol/L (98-107); Potassium 4.0 mmol/L (3.5-5.1); Sodium 139 mmol/L (135-145)
--- NOTE | 2025-01-12 15:49 | CON.NEURO ---
Addendum entered and electronically signed by Gerson Nelson MD 01/12/25 17:40:
Studies reviewed.
I have personally examined the patient. I reviewed and agree with the COST CONTROL ANALYST's Note.
My addenda:
Awake, alert, interactive. No acute distress.
Speech intact.
Follows 2-step requests w/o difficulty. No tremor.
Extra-ocular movements grossly intact.
Facial movements full and symmetric. Hearing intact to normal conversational volume.
Normal UE movements bilaterally.
Episodic, variable, upper or lower body proximal thrusting lasting for 0.5 sec irregularly, suppressed with distraction.
Neck: full ROM.
Chest: no dyspnea
Heart: no JVD
Ext: (-) Clubbing, (-) Cyanosis, (-) Edema
IMPRESSIONS/RECOMMENDATIONS:
Abrupt onset of worsening of chronic body movements.
Movements based on irregularity, suppressibility, variable locations/amplitudes are due to functional neurological disorder
continue current medications
outpatient cognitive behavioral therapy (CBT) with psychologist
can provide Quetiapine 12.5 mg BID if troubling to patient, doesn't replace need for CBT
D/W patient / family / nursing
All questions answered.
Will continue to follow as needed.
Original Note:
Neuro Assessment/Plan
Assessment
74-year-old female with past medical history of hypertension, complex regional pain syndrome, recent back surgery at [facility] who presents from [facility] to [facility] on 01/12/2025 with her daughter for evaluation of 'muscle spasms' and
lethargy.
Labs: B12 301, BUN 41, Cr 2.3
Plan
Impression: involuntary movements of bilateral upper and lower extremities which appear variable differential diagnosis includes neuropathy vs functional neurologic disorder vs cauda equina syndrome (although less likely)
-check blood work for metabolic disturbances
-agree with MRI thoracic and lumbar spine
-PT/OT evaluations
-fall precautions
-consider cognitive behavior therapy outpatient
All questions encouraged and answered, plan of care discussed with Dr. Nelson, Dr. Kaye, nurse, patient and daughter
Consultation
Order
Date of Consultation: 01/12/25
Requesting Provider: Dr. Harmeet Kaye
Reason for Consult: involuntary movements
Subjective/Objective
Subjective Data
Date of Service: January 12, 2025
74-year-old female with past medical history of hypertension, complex regional pain syndrome, recent back surgery at [facility] who presents from [facility] to [facility] on 01/12/2025 with her daughter for evaluation of 'muscle spasms' and
lethargy. Patient was seen in our ED back in August s/p fall and again in September for persistent back pain. At that time, she had not been able to walk like she usually does with a walker because of pain. She also had a Branham catheter in. She denied any
saddle anesthesia. The patient is a nurse. She denied any lower extremity numbness or tingling. Denied any lower extremity weakness. No evidence of cauda equina syndrome and was discharged. She had a fall on 09/15 and presented to [facility] with severe lower back pain, accompanied by urinary retention and constipation. An MRI performed in the ER revealed spinal stenosis and neural foraminal narrowing. On 09/22, she underwent a T12-L2 decompression and fusion. Her
postoperative course was complicated by hypertension, requiring ICU admission and treatment with a Cardene drip. Pain management included use of Tylenol, Dilaudid, Oxycodone, and Valium. She declined the initial transfer to the assigned skilled
nursing facility and was subsequently re-admitted for a UTI and treated with oral Cefdinir. She was discharged and has since continued rehabilitation, first at [facility] and currently at [facility].
Talking with patient and daughter there was a lot of confusion and inconsistency with onset of symptoms. Initially patient told us that her spasms were new occurring today. Then she told us she had full body spasms a year ago and then it went away
and was thought to be due to her B12 deficiency. Upon further questioning, she stated she started having spasms to bilateral arms, legs and lumbar back about 2-3 weeks ago. Daughter at bedside and tells us today they went to see her pain management
doctor and the patient was found was slumped over in chair difficult to arouse. Daughter assisted her to bathroom and the patient started having high amplitude irregular movements of arms and legs at around 1:30pm. In the ED, patient hypotensive
with initial BP 89/50 urinary retention was noted. She tells us she has not voided since 9pm last night. In ED bladder scan showed 280cc urine and branham placed with 250cc urine output. Her B12 last month was 182, she got her injection on January
. She states she was on flexeril about a week ago for about 5 days but found this ineffective and was discontinued. A month ago she was started on Cymbalta 60 mg BID for her spasms.
Currently the patient is experiences lower back pain which is hindering her exam and movement. She is having variable intermittent spasms. Denies lower extremity sensation changes. It is unclear if she is having lower extremity weakness and exam is
limited by pain.
Objective Data
Vital Signs
Temp Pulse Resp BP Pulse Ox
97.9 F 75 19 92/53 95
01/12/25 15:02 01/12/25 15:15 01/12/25 15:01 01/12/25 15:15 01/12/25 15:28
Lab Results
01/12/25 14:55
01/12/25 14:55
Sodium 139 mmol/L (135-145) 01/12/25 14:55
Potassium 4.0 mmol/L (3.5-5.1) 01/12/25 14:55
BUN 41 mg/dl (7-17) H 01/12/25 14:55
Glucose 89 mg/dl (70-99) 01/12/25 14:55
Calcium 8.7 mg/dl (8.4-10.2) 01/12/25 14:55
Patient Allergies
nortriptyline HCl (From Pamelor) Allergy (Verified 01/12/25 15:43)
Tongue Swelling
Physical Exam
-
General: Appears Stated Age
HEENT: Normocephalic, Atraumatic and Anicteric
Neck: Full Range of Motion
Respiratory: No Dyspnea
Cardiac: No JVD
GI: Non-distended
Skin: Unremarkable
Extremities: No Clubbing, No Cyanosis and Edema +1 (b/l LEs)
Psych: Anxious
Extended Neurological Exam
Mood & Affect: Anxious
Attention Span & Concentration: Awake, Alert, Interactive and No Difficulty with 2 Step Request
Memory: Unremarkable
Involuntary Movement: Other (intermittent and variable spasm to b/l UEs and LEs)
Speech: Quality Unremarkable, Quantity Unremarkable and Rate of Production Unremarkable
Cranial Nerve II: Left Eye: Visual Miller Intact
Cranial Nerve II: Right Eye: Visual Miller Intact
Cranial Nerves III, IV, : Extraocular Movement: Extraocular Movement Full in all Directions
Cranial Nerve V: Facial Sensation: Facial Sensation Unremarkable to Cold
Cranial Nerve VII: Facial Symmetry: Normal Facial Symmetry
Cranial Nerve VIII: Hearing: Unremarkable Hearing to Normal Conversational Volume
Cranial Nerves IX, X: Palate Movement: Palate Elevation Symmetric
Cranial Nerve XI: Shoulder Shrug: Unremarkable
Muscle Strength, Overall: Spontaneously Moves
Pronator Drift: No Drift in Upper Extremities and No Drift in Lower Extremities
Cold Sensation: Unremarkable
Touch Sensation: Unremarkable and Double Simultaneous Stimulation Unremarkable
Coordination: Aiwbpr-[id number]-[id number] Testing Unremarkable and Reaches for Objects without Difficulty
Medications
-
Active Medications
Generic Name Dose Route Start Last Admin
Trade Name Freq PRN Reason Stop Dose Admin
Sodium Chloride 1,000 mls @ 1,000 mls/hr 01/12/25 15:19 01/12/25 15:20
Nss IV 01/12/25 16:18 1,000 mls
BOLUS ONE Administration
Home Medications
�Medication �Instructions �Recorded
acebutolol 200 mg capsule 200 mg PO DAILY Heart 08/18/22
disease/condition
gabapentin 300 mg capsule 600 mg PO HS mild Pain 02/12/23
allopurinol 300 mg tablet 300 mg PO DAILY 01/12/25
cyclobenzaprine 10 mg tablet 10 mg PO BID 01/12/25
duloxetine 60 mg capsule,delayed 60 mg PO BID 01/12/25
release
furosemide 20 mg tablet (Lasix) 20 mg PO DAILY 01/12/25
gabapentin 300 mg capsule 300 mg PO BID 01/12/25
Past History
Past History
ED Past Medical History: Cancer (Breast cancer), HTN and Other (RSD)
ED Past Surgical History: Appendectomy, Cholecystectomy, Tonsilectomy and Other
Family/Social History
Tobacco: Non-smoker
Alcohol: None
Drug: None
Personal:
Living: with family
Employment: Retired
[2025-01-12 16:21] LABS: Magnesium 1.8 mg/dl (1.6-2.3)
--- NOTE | 2025-01-12 17:04 | HPS.HSE ---
Family Physician
-
Family Physician:
Chief Complaint
-
Muscle spasms and pain
History of Present Illness
74-year-old female with a past medical history of CRPS, chronic back pain on chronic opioids status post recent back surgery September 2024, and hypertension who presents to the ER for worsening diffuse muscle spasms. Daughter states patient started
having muscle spasms a year ago, which resolved spontaneously. Then the muscle spasms returned about 2-3 months ago, and have since worsened. Patient presented to the ER for these symptoms. She states Flexeril has not helped her. Daughter states
that the muscle spasms get worse with intentional movement, causing severe debility for the patient. Upon evaluation in the ED, patient was found to have acute urinary retention, requiring Alexandra placement. She had an elevated creatinine as well.
She denies chest pain, denies shortness of breath. She denies fever, chills. No nausea, no vomiting. She denies constipation, states her last bowel movement was yesterday and normal. She is on chronic opioids for her chronic back pain.
Medical History
Past Medical History
Past Medical History: Reports Other
Additional Past Medical History:
Complex regional pain syndrome
Chronic back pain on chronic opioids
Essential hypertension
Breast cancer
Past Surgical History: Reports Other (Appendectomy, Cholecystectomy, Tonsilectomy and back surgery)
Social History
Tobacco: Non-smoker
Alcohol: None
Drug: None
Personal:
Living: With Family
Employment: Retired
Family History
Family History: Not pertinent
Allergies / Home Medications
Allergies reflects when Allergies were last updated in [employer].
Home Medications with original date entered in [employer]
Allergy/Medication List:
Allergies
Allergy/AdvReac Type Severity Reaction Status Date / Time
nortriptyline HCl (From Allergy Tongue Verified 01/12/25 15:43
Pamelor) Swelling
Home Medications Table - record
�Medication �Instructions �Recorded �Confirmed
acebutolol 200 mg capsule 200 mg PO TID Heart 08/18/22 01/12/25
disease/condition
gabapentin 300 mg capsule 600 mg PO HS mild Pain 02/12/23 01/12/25
amitriptyline 100 mg tablet 100 mg PO HS 01/12/25 01/12/25
bisacodyl 5 mg tablet,delayed 5 mg PO DAILYPRN PRN constiaption 01/12/25 01/12/25
release (Dulcolax (bisacodyl))
cyanocobalamin (vitamin B-12) 1,000 mcg IM QMONTH 01/12/25 01/12/25
1,000 mcg/mL injection solution
duloxetine 60 mg capsule,delayed 60 mg PO BID 01/12/25 01/12/25
release
furosemide 20 mg tablet (Lasix) 20 mg PO DAILY 01/12/25 01/12/25
gabapentin 300 mg capsule 300 mg PO BID 01/12/25 01/12/25
oxycodone 20 mg tablet,crush 20 mg PO TID 01/12/25 01/12/25
resistant,extended release 12 hr
(OxyContin)
oxycodone-acetaminophen 10 mg-325 1 tab PO Q6HPRN PRN severe pains 01/12/25 01/12/25
mg tablet (Percocet)
zolpidem 5 mg tablet (Ambien) 5 mg PO HS 01/12/25 01/12/25
Review of Systems
-
A 12 point ROS was completed and negative except as noted: Yes
Physical Exam
Vital Signs
Vital Signs
Temp Pulse Resp BP Pulse Ox
97.9 F 77 16 120/59 93
01/12/25 15:02 01/12/25 16:44 01/12/25 16:44 01/12/25 16:44 01/12/25 16:44
Physical Exam
General: No Apparent Distress
HEENT: NormoCephalic and Anicteric
Respiratory: Clear, Wheezes and Rales
Cardiac: S1/S2 and Regular Rhythm
GI: Non Distended
Musculoskeletal: No Clubbing, No Cyanosis and No Edema
Neuro: AO x 3 and Other (Intermittent twitching noted)
Psych: Calm
Laboratory Results
-
01/12/25 14:55
01/12/25 14:55
Laboratory Results
Total Bilirubin 0.4 mg/dl (0.2-1.3) 01/12/25 14:55
AST 18 U/L (14-36) 01/12/25 14:55
ALT < 10 U/L (0-35) 01/12/25 14:55
Alkaline Phosphatase 83 U/L (38-126) 01/12/25 14:55
Data Reviewed
-
Lab Data: Labs Reviewed by me
Impression/Plan
-
HPI: 74-year-old female with a past medical history of CRPS, chronic back pain on chronic opioids status post recent back surgery September 2024, and hypertension who presents to the ER for worsening diffuse muscle spasms. Daughter states patient started
having muscle spasms a year ago, which resolved spontaneously. Then the muscle spasms returned about 2-3 months ago, and have since worsened. Patient presented to the ER for these symptoms. She states Flexeril has not helped her. Daughter states
that the muscle spasms get worse with intentional movement, causing severe debility for the patient. Upon evaluation in the ED, patient was found to have acute urinary retention, requiring Alexandra placement. She had an elevated creatinine as well.
She denies chest pain, denies shortness of breath. She denies fever, chills. No nausea, no vomiting. She denies constipation, states her last bowel movement was yesterday and normal. She is on chronic opioids for her chronic back pain.
#Acute urinary retention
#Acute kidney injury from obstructive uropathy
Alexandra inserted in the ED on 01/12
Start Flomax, bowel regimen, maintain Alexandra for 3 days
Monitor creatinine, no nephrotoxic drugs/NSAIDs
#Worsening diffuse muscle spasms
Discussed with neurology, who suspects this is psychogenic and recommends cognitive behavioral therapy
Started on Seroquel 12.5 mg twice daily by neurology
Trial of baclofen, consult PT/OT
#Recent back surgery in September 2024 at [facility]
MRI requested by ED
Continue home oxycodone 20 mg 3 times daily, Percocet as needed
#Complex regional pain syndrome
Continue gabapentin, Cymbalta, amitriptyline, opioids as above
#Vitamin B12 deficiency
Recently received vitamin B12 injection
Follow-up vitamin B12 levels
#Insomnia
Continue amitriptyline at bedtime, Ambien at bedtime
DVT prophylaxis�subcu Lovenox
Full code
Updated daughter at bedside 01/12
Total time spent to see the patient on the floor, examine the patient, review data and lab results, discuss treatment plan with patient, nursing staff around 77 minutes.
[2025-01-12 17:09] LABS: Urine Character Slightly Cloudy (Clear)
[2025-01-12 17:21] LABS: Vitamin B12 301 pg/ml (239-931)
[2025-01-12 17:25] LABS: Urine Squamous Cell 0-2 /LPF (Few)
[2025-01-12 17:26] LABS: Urine Red Blood Cell 0-2 /HPF (0-2); Urine White Cell 30-40 /HPF (0-5)
[2025-01-12 18:44] LABS: Folate 5.9 ng/ml (2.76-20)
--- NOTE | 2025-01-12 19:15 | PTCARENOTE ---
Pt arrived to unit from ED via stretcher. Pulled over to bed by staff. A&Ox3. Alexandra catheter maintained. Pt oriented to unit. Bed in lowest position with call light within reach.
[2025-01-12] MEDS: FLOMAX 0.4 MG PO (21:18)
[2025-01-12] MEDS: CYMBALTA DELAYED RELEASE 60 MG PO (21:19)
[2025-01-12] MEDS: SENOKOT-S 2 TABLET PO (21:19)
[2025-01-12] MEDS: ELAVIL 100 MG PO (21:19)
[2025-01-12] MEDS: AMBIEN 5 MG PO (21:19)
[2025-01-12] MEDS: SEROQUEL 12.5 MG PO (21:20)
[2025-01-12] MEDS: OXYCONTIN (CONTROLLED RELEASE) 20 MG PO (21:20)
[2025-01-12] MEDS: NEURONTIN 600 MG PO (21:24)
[2025-01-13 07:10] VITALS: BP 101/53
[2025-01-13] MEDS: SEROQUEL 12.5 MG PO (07:24)
[2025-01-13] MEDS: MIRALAX 17 GRAMS PO (07:24)
[2025-01-13] MEDS: OXYCONTIN (CONTROLLED RELEASE) 20 MG PO ×3 (07:24→21:35)
[2025-01-13] MEDS: SENOKOT-S 2 TABLET PO ×2 (07:25→19:48)
--- NOTE | 2025-01-13 08:42 | W.PN.NEURO.1 ---
Today's Communication / Plan
-
Restarted vitamin B12 supplementation
Initiated quetiapine 12.5 mg twice a day; advance to 25 mg twice a day although this will not remediate the patient's movement disorder as it is psychogenic in nature
Neuro Assessment/Plan
Assessment
74-year-old female with past medical history of hypertension, complex regional pain syndrome, recent back surgery at [facility] who presents from [facility] to [facility] on 01/12/2025 with her daughter for evaluation of 'muscle spasms' and
lethargy.
Labs: B12 301, BUN 41, Cr 2.3
Impression: involuntary movements of bilateral upper and lower extremities which appear variable; diagnosis functional neurologic disorder
Plan
Restarted vitamin B12 supplementation
Initiated quetiapine 12.5 mg twice a day; advance to 25 mg twice a day although this will not remediate the patient's movement disorder as it is psychogenic in nature
PT/OT evaluations
fall precautions
cognitive behavior therapy as outpatient
Will follow as needed
Subjective/Objective
Subjective Data
Date of Service: January 13, 2025
Objective Data
Vital Signs
Temp Pulse Resp BP Pulse Ox
36.6 C 70 16 101/53 93
01/13/25 07:10 01/13/25 07:10 01/13/25 07:10 01/13/25 07:10 01/13/25 07:10
Lab Results
01/12/25 14:55
Sodium 139 mmol/L (135-145) 01/12/25 14:55
Potassium 4.0 mmol/L (3.5-5.1) 01/12/25 14:55
BUN 41 mg/dl (7-17) H 01/12/25 14:55
Glucose 89 mg/dl (70-99) 01/12/25 14:55
Calcium 8.7 mg/dl (8.4-10.2) 01/12/25 14:55
Vitamin B12 301 pg/ml (737-610) 01/12/25 15:47
Patient Allergies
nortriptyline HCl (From Pamelor) Allergy (Verified 01/12/25 15:43)
Tongue Swelling
Data Reviewed
-
Labs: Report Reviewed
Reviewed with: Nurse and Nurse Practioner
Old Records: Summarized
Past History
Past History
ED Past Medical History: Cancer (Breast cancer), HTN and Other (RSD)
ED Past Surgical History: Appendectomy, Cholecystectomy, Tonsilectomy and Other
Social History
Tobacco: Non-smoker
Alcohol: None
Drug: None
Personal:
Living: with family
Employment: Retired
Medications
-
Medications:
Generic Name Dose Route Start Last Admin
Trade Name Freq PRN Reason Stop Dose Admin
Acetaminophen 650 mg 01/12/25 19:27
Acetaminophen 325 Mg Tablet PO 02/09/25 19:26
Q4HPRN PRN
mild pain/SEAY/temp> 100.4F
Acetaminophen 325 mg 01/12/25 21:11
Acetaminophen 325 Mg Tablet PO 01/26/25 21:10
Q6HPRN PRN
severe pains
Amitriptyline HCl 100 mg 01/12/25 22:00 01/12/25 21:19
Amitriptyline 100 Mg Tablet PO 02/09/25 21:59 100 mg
HS KIM Administration
Bisacodyl 5 mg 01/12/25 19:27
Bisacodyl 5 Mg Enteric Coated Tablet PO 02/09/25 19:26
DAILYPRN PRN
constipation
Bisacodyl 10 mg 01/12/25 19:27
Bisacodyl 10 Mg Rectal Suppository RECTAL 02/09/25 19:26
[id number] PRN
constipation
Duloxetine HCl 60 mg 01/12/25 21:30 01/12/25 21:19
Duloxetine Delayed Release 60 Mg Capsule PO 02/09/25 21:29 60 mg
BID KIM Administration
Enoxaparin Sodium 30 mg 01/13/25 18:00
Enoxaparin Sodium 30 Mg/0.3 Ml Syringe SC 02/10/25 17:59
QPM IKM
Furosemide 20 mg 01/13/25 08:00
Furosemide 20 Mg Tablet PO 02/10/25 07:59
DAILY KIM
Gabapentin 300 mg 01/12/25 20:00
Gabapentin 300 Mg Capsule PO 02/09/25 19:59
BID KIM
Gabapentin 600 mg 01/12/25 22:00 01/12/25 21:24
Gabapentin 300 Mg Capsule PO 02/09/25 21:59 600 mg
HS KIM Administration
Acebutolol 200 Mg 0 mg 01/12/25 22:00
Capsule Po Tid PO 02/09/25 21:59
TID KIM
Oxycodone HCl 20 mg 01/12/25 22:00 01/13/25 07:24
Oxycontin 10 Mg Controlled Release Tablet PO 01/26/25 21:59 20 mg
TID KIM Administration
Oxycodone HCl 10 mg 01/12/25 19:27
Oxycodone 10 Mg Regular Release Tablet PO
Q6HPRN PRN
severe pains
Polyethylene Glycol 17 grams 01/13/25 08:00 01/13/25 07:24
Polyethylene Glycol Powder 17 Grams Packet PO 02/10/25 07:59 17 grams
DAILY KIM Administration
Quetiapine Fumarate 12.5 mg 01/12/25 20:00 01/13/25 07:24
Quetiapine 25 Mg Tablet PO 02/09/25 19:59 12.5 mg
BID KIM Administration
Senna/Docusate Sodium 2 tablet 01/12/25 20:00 01/13/25 07:25
Docusate W/Senna (Dora-Colace) Tablet PO 02/09/25 19:59 2 tablet
BID KIM Administration
Sodium Chloride 0 flush 01/12/25 19:00
Sodium Chloride 0.9% (Flush) Syringe IV 02/09/25 18:59
PER PROTOCOL KIM
Tamsulosin HCl 0.4 mg 01/12/25 19:27 01/12/25 21:18
Tamsulosin 0.4 Mg Capsule PO 02/09/25 19:26 0.4 mg
QPM KIM Administration
Zolpidem Tartrate 5 mg 01/12/25 22:00 01/12/25 21:19
Zolpidem Tartrate 5 Mg Tablet PO 02/09/25 21:59 5 mg
HS KIM Administration
--- NOTE | 2025-01-13 08:58 | W.PN.HOSP.TC ---
Today's Communication/Plan
-
see bold
Assessment / Plan
Assessment / Plan
HPI: 74-year-old female with a past medical history of CRPS, chronic back pain on chronic opioids status post recent back surgery September 2024, and hypertension who presents to the ER for worsening diffuse muscle spasms. Daughter states patient started
having muscle spasms a year ago, which resolved spontaneously. Then the muscle spasms returned about 2-3 months ago, and have since worsened. Patient presented to the ER for these symptoms. She states Flexeril has not helped her. Daughter states
that the muscle spasms get worse with intentional movement, causing severe debility for the patient. Upon evaluation in the ED, patient was found to have acute urinary retention, requiring Alexandra placement. She had an elevated creatinine as well.
She denies chest pain, denies shortness of breath. She denies fever, chills. No nausea, no vomiting. She denies constipation, states her last bowel movement was yesterday and normal. She is on chronic opioids for her chronic back pain.
#Acute urinary retention
#Acute kidney injury from obstructive uropathy
Alexandra inserted in the ED on 01/12
Started Flomax, bowel regimen, maintain Alexandra for 3 days
Creatinine improving, monitor creatinine, no nephrotoxic drugs/NSAIDs
#Acute urinary tract infection
Start Rocephin day 1, follow-up on urine cultures
#Worsening diffuse muscle spasms
Discussed with neurology, who suspects this is psychogenic and recommends cognitive behavioral therapy
Started on Seroquel 12.5 mg twice daily by neurology, dose increased to 25 mg twice daily 01/[address] ordered by neurology, trial of baclofen, PT/OT rec SNF
#Recent back surgery in September 2024 at [facility]
Continue home oxycodone 20 mg 3 times daily, Percocet as needed
#Complex regional pain syndrome
Continue gabapentin, Cymbalta, amitriptyline, opioids as above
#Vitamin B12 deficiency
Recently received vitamin B12 injection
Vitamin B12 levels normal at 301
Start oral vitamin B supplement, continue IM injections monthly
#Insomnia
Continue amitriptyline at bedtime, Ambien at bedtime
DVT prophylaxis�subcu Lovenox
Full code
Updated daughter at bedside 01/13
Total time spent to see the patient on the floor, examine the patient, review data and lab results, discuss treatment plan with patient, nursing staff around 51 minutes.
Physical Exam
General: Obese, no acute distress
HEENT: Normocephalic, Atraumatic, EOMI, MMM
Respiratory: Clear to Auscultation bilaterally
Cardiac: Normal S1/S2, Regular Rate and Rhythm
GI: Soft, Nontender, Nondistended, Normal Bowel Sounds
Extremities: No Clubbing, Cyanosis, or Edema
Neuro: Intermittent jerking noted
Anticipated Discharge: 24 - 48 hours
Subjective/Interval History
-
Date of Service: January 13, 2025
Patient continues to complain of muscle spasms, with diffuse pain, same as admission. She denies dysuria, denies chest pain, denies shortness of breath. No fever, no vomiting.
Objective Data
-
Labs:
Laboratory Results
01/13/25
07:01
Sodium Pending
Potassium Pending
Chloride Pending
Carbon Dioxide Pending
BUN Pending
Creatinine Pending
Glucose Pending
Calcium Pending
Vital Signs:
Vital Signs
Temp Pulse Resp BP Pulse Ox
97.9 F 70 16 101/53 93
01/13/25 07:10 01/13/25 07:10 01/13/25 07:10 01/13/25 07:10 01/13/25 07:10
I&O
01/12/25 01/13/25 01/14/25
06:59 06:59 06:59
Intake Total 480 / 480
Output Total 925 / 925
Balance -445 / -445
[2025-01-13] MEDS: STERILE WATER FOR INJECTION 10 ML IV (09:05)
[2025-01-13] MEDS: ROCEPHIN 1000 MG IV (09:05)
[2025-01-13] MEDS: SEROQUEL 25 MG PO ×2 (09:05→19:49)
[2025-01-13] MEDS: VITAMIN B-12 1000 MCG PO (09:33)
[2025-01-13 09:35] LABS: Blood Urea Nitrogen 32 mg/dl (7-17); Calcium 8.5 mg/dl (8.4-10.2); Carbon Dioxide 32 mmol/L (22-30); Chloride 102 mmol/L (98-107); Estimated Creatinine Clearance 34 ml/min; Glucose 88 mg/dl (70-99); Magnesium 1.8 mg/dl (1.6-2.3); Potassium 3.7 mmol/L (3.5-5.1); Sodium 139 mmol/L (135-145); eGFR 39.23
[2025-01-13] MEDS: NEURONTIN PO (09:42)
[2025-01-13] MEDS: NEURONTIN 300 MG PO ×2 (09:43→19:48)
[2025-01-13] MEDS: CYMBALTA DELAYED RELEASE 60 MG PO ×2 (09:43→19:49)
[2025-01-13] MEDS: LASIX 20 MG PO (09:47)
[2025-01-13 11:51] VITALS: BP 115/66; PULSE 83
[2025-01-13 11:57] VITALS: BP 115/66; PULSE 81; O2SAT 94
[2025-01-13] MEDS: LIORESAL 10 MG PO (12:42)
[2025-01-13 13:07] LABS: Ferritin 11.8 ng/ml (11.1-264.0)
--- NOTE | 2025-01-13 13:44 | CM ---
Addendum entered by Lisa Solorzano 01/13/25 14:48:
Met with pt and dtr. Pt and dtr selected [facility], [facility] and [facility] for SNF referrals. Referrals made with JAYLYNAR.
Plan: D/C to SNF
Original Note:
Chart reviewed. Met with pt, a retired nurse, at bedside. IA completed. IMM given on 01/12/25. Came to from [facility] and Lives with in 2 story home. 2 steps at the entrance to the home and 13 steps inside the home. BR on 1st
floor. No Hx of HH. No insecurities identified. Confirmed PCP, Rx, insurance and drug coverage.
PT has recommended SNF. She has been to [facility] and was not happy with the care she received there. CM provided resources for SNFs
has terminal cancer.
Plan:TBD
PCP at home: David Mckeon PCP at [place]: Moris Hawkins
Rx at home: LISETTE/ [facility] at [place]: [facility]
--- NOTE | 2025-01-13 15:01 | PN.CDI ---
CDI
- -
CDI:
Physician Documentation Request
Admit Date: 01/12/25 18:16
Dear Doctor Do,
Please review the following and provide your response in the progress notes.
Clinical Indicators:
Pt admitted with DANYEL /UTI
Progress note 01/13, ' She is on chronic opioids for her chronic back pain. ...Continue home oxycodone 20 mg 3 times daily, Percocet as needed...#Complex regional pain syndrome Continue gabapentin, Cymbalta, amitriptyline, opioids as above...'
Pt home medications includes Oxycodone. Please clarify if there is a diagnosis associated with the above medication usage.
� Opioid dependence, continuous/daily use.
� Opioid dependence, intermittent/not daily use
� Other ( please specify)
Use of terms such as suspected, likely, concern for, or probable (associated with a specific diagnosis that is being evaluated, monitored, or treated as if it exists) are acceptable and can be coded in the inpatient setting, when documented at the
time of discharge.
Thank you,
Olamide Nance RN
CDI Specialist
[place] [facility]
Please use your independent medical judgment in providing your response.
[2025-01-13 15:10] VITALS: BP 104/56
[2025-01-13] MEDS: LIORESAL 5 MG PO ×2 (15:27→21:34)
[2025-01-13] MEDS: LOVENOX 30 MG SC (17:28)
[2025-01-13] MEDS: FLOMAX 0.4 MG PO (17:28)
[2025-01-13] MEDS: ROXICODONE 10 MG PO (19:53)
[2025-01-13] MEDS: ELAVIL 100 MG PO (21:34)
[2025-01-13] MEDS: NEURONTIN 600 MG PO (21:34)
[2025-01-13] MEDS: AMBIEN 5 MG PO (21:35)
[2025-01-13 23:37] VITALS: BP 104/55
[2025-01-14 07:47] VITALS: BP 123/67
[2025-01-14] MEDS: MIRALAX 17 GRAMS PO (07:55)
[2025-01-14] MEDS: OXYCONTIN (CONTROLLED RELEASE) 20 MG PO ×3 (07:55→21:01)
[2025-01-14] MEDS: NEURONTIN 300 MG PO ×2 (07:55→21:01)
[2025-01-14] MEDS: SENOKOT-S 2 TABLET PO ×2 (07:55→21:01)
[2025-01-14] MEDS: SEROQUEL 25 MG PO ×2 (07:56→21:01)
[2025-01-14] MEDS: VITAMIN B-12 1000 MCG PO (07:56)
[2025-01-14] MEDS: LIORESAL 5 MG PO (07:56)
[2025-01-14] MEDS: CYMBALTA DELAYED RELEASE 60 MG PO ×2 (07:57→21:00)
--- NOTE | 2025-01-14 09:12 | W.PN.HOSP.TC ---
Today's Communication/Plan
-
Remove Alexandra tomorrow
Assessment / Plan
Assessment / Plan
HPI: 74-year-old female with a past medical history of CRPS, chronic back pain on chronic opioids status post recent back surgery September 2024, and hypertension who presents to the ER for worsening diffuse muscle spasms. Daughter states patient started
having muscle spasms a year ago, which resolved spontaneously. Then the muscle spasms returned about 2-3 months ago, and have since worsened. Patient presented to the ER for these symptoms. She states Flexeril has not helped her. Daughter states
that the muscle spasms get worse with intentional movement, causing severe debility for the patient. Upon evaluation in the ED, patient was found to have acute urinary retention, requiring Alexandra placement. She had an elevated creatinine as well.
She denies chest pain, denies shortness of breath. She denies fever, chills. No nausea, no vomiting. She denies constipation, states her last bowel movement was yesterday and normal. She is on chronic opioids for her chronic back pain.
#Acute urinary retention
#Acute kidney injury from obstructive uropathy
Alexandra inserted in the ED on 01/12
Started Flomax, bowel regimen, maintain Alexandra for 3 days - plan to remove tomorrow 01/15
Creatinine now normal, was 2.3 upon admission
Monitor creatinine, no nephrotoxic drugs/NSAIDs
#Acute urinary tract infection
Urine cultures growing Klebsiella, sensitive to everything except ampicillin
Change IV Rocephin to Augmentin D2/5 to complete a 5-day course
#Worsening diffuse muscle spasms
Discussed with neurology, who suspects this is psychogenic and recommends cognitive behavioral therapy
Started on Seroquel 12.5 mg twice daily by neurology, dose increased to 25 mg twice daily 01/13
No improvement w/ flexeril or baclogen
Head CT neg, trial of tizanidine, PT/OT rec SNF
#Recent back surgery in September 2024 at [facility]
#Chronic back pain with daily opioid use and dependency
Continue home oxycodone 20 mg 3 times daily, Percocet as needed
#Complex regional pain syndrome
Continue gabapentin, Cymbalta, amitriptyline, opioids as above
#Vitamin B12 deficiency
Recently received vitamin B12 injection
Vitamin B12 levels normal at 301
Started oral vitamin B supplement, continue IM injections monthly
#Insomnia
Continue amitriptyline at bedtime, Ambien at bedtime
DVT prophylaxis�subcu Lovenox
Full code
Updated daughter on phone 01/14
Total time spent to see the patient on the floor, examine the patient, review data and lab results, discuss treatment plan with patient, nursing staff around 41 minutes.
Physical Exam
General: Obese, no acute distress
HEENT: Normocephalic, Atraumatic, EOMI, MMM
Respiratory: Clear to Auscultation bilaterally
Cardiac: Normal S1/S2, Regular Rate and Rhythm
GI: Soft, Nontender, Nondistended, Normal Bowel Sounds
Extremities: No Clubbing, Cyanosis, or Edema
Neuro: Intermittent jerking noted
Anticipated Discharge: Within 24 hours
Subjective/Interval History
-
Date of Service: January 14, 2025
Patient continues to have jerking muscle spasms, which cause her excruciating pain. She denies nausea, denies vomiting. No fever, no chest pain, no shortness of breath.
Objective Data
-
Labs:
Laboratory Results
01/14/25
08:53
Sodium Pending
Potassium Pending
Chloride Pending
Carbon Dioxide Pending
BUN Pending
Creatinine Pending
Glucose Pending
Calcium Pending
Vital Signs:
Vital Signs
Temp Pulse Resp BP Pulse Ox
97.4 F 66 16 123/67 96
01/14/25 07:47 01/14/25 07:47 01/14/25 07:47 01/14/25 07:47 01/14/25 07:47
I&O
01/13/25 01/14/25 01/15/25
06:59 06:59 06:59
Intake Total 480 / 480
Output Total 925 / 925 1400 / 2099 700 / 700
Balance -445 / -445 -1400 / -2099 -700 / -700
[2025-01-14] MEDS: VALIUM INJECTION 2 MG IV (09:42)
[2025-01-14] MEDS: STERILE WATER FOR INJECTION 10 ML IV (10:39)
[2025-01-14] MEDS: ROCEPHIN 1000 MG IV (10:40)
[2025-01-14] MEDS: LASIX 20 MG PO (10:42)
[2025-01-14] MEDS: MORPHINE SULFATE 2 MG IV (11:10)
[2025-01-14 11:20] LABS: Blood Urea Nitrogen 24 mg/dl (7-17); Calcium 9.0 mg/dl (8.4-10.2); Carbon Dioxide 33 mmol/L (22-30); Chloride 100 mmol/L (98-107); Estimated Creatinine Clearance 47 ml/min; Glucose 93 mg/dl (70-99); Potassium 4.2 mmol/L (3.5-5.1); Sodium 139 mmol/L (135-145); eGFR 58.75
[2025-01-14] MEDS: ZANAFLEX 2 MG PO ×2 (15:15→21:01)
[2025-01-14] MEDS: NON-FORMULARY ITEM 200 MG PO (15:16)
[2025-01-14 15:53] VITALS: BP 111/56
[2025-01-14] MEDS: FLOMAX 0.4 MG PO (17:08)
[2025-01-14] MEDS: LOVENOX 40 MG SC (17:09)
[2025-01-14] MEDS: DULCOLAX 5 MG PO (17:15)
[2025-01-14] MEDS: SENOKOT-S PO (20:25)
[2025-01-14] MEDS: AUGMENTIN 875 MG/125 MG 1 TABLET PO (21:00)
[2025-01-14] MEDS: NEURONTIN 600 MG PO (21:01)
[2025-01-14] MEDS: ELAVIL 100 MG PO (21:01)
[2025-01-14] MEDS: AMBIEN 5 MG PO (21:01)
[2025-01-14] MEDS: NON-FORMULARY ITEM 1 MG PO (21:02)
[2025-01-14 23:22] VITALS: BP 113/62
[2025-01-15 07:05] VITALS: BP 130/68
[2025-01-15] MEDS: MIRALAX 17 GRAMS PO ×2 (07:33→20:48)
[2025-01-15] MEDS: CYMBALTA DELAYED RELEASE 60 MG PO ×2 (07:33→20:47)
[2025-01-15] MEDS: ZANAFLEX 2 MG PO ×3 (07:33→20:54)
[2025-01-15] MEDS: NEURONTIN 300 MG PO ×2 (07:34→20:47)
[2025-01-15] MEDS: OXYCONTIN (CONTROLLED RELEASE) 20 MG PO ×3 (07:34→20:55)
[2025-01-15] MEDS: AUGMENTIN 875 MG/125 MG 1 TABLET PO ×2 (07:34→20:47)
[2025-01-15] MEDS: VITAMIN B-12 1000 MCG PO (07:34)
[2025-01-15] MEDS: SENOKOT-S 2 TABLET PO ×2 (07:34→20:47)
[2025-01-15] MEDS: SEROQUEL 25 MG PO ×2 (07:35→20:47)
[2025-01-15] MEDS: NON-FORMULARY ITEM 200 MG PO ×3 (07:35→20:51)
--- NOTE | 2025-01-15 09:07 | W.PN.HOSP.TC ---
Today's Communication/Plan
-
see bold
Assessment / Plan
Assessment / Plan
HPI: 74-year-old female with a past medical history of CRPS, chronic back pain on chronic opioids status post recent back surgery September 2024, and hypertension who presents to the ER for worsening diffuse muscle spasms. Daughter states patient started
having muscle spasms a year ago, which resolved spontaneously. Then the muscle spasms returned about 2-3 months ago, and have since worsened. Patient presented to the ER for these symptoms. She states Flexeril has not helped her. Daughter states
that the muscle spasms get worse with intentional movement, causing severe debility for the patient. Upon evaluation in the ED, patient was found to have acute urinary retention, requiring Alexandra placement. She had an elevated creatinine as well.
She denies chest pain, denies shortness of breath. She denies fever, chills. No nausea, no vomiting. She denies constipation, states her last bowel movement was yesterday and normal. She is on chronic opioids for her chronic back pain.
#Acute urinary retention
#Acute kidney injury from obstructive uropathy
Alexandra inserted in the ED on 01/12
Started Flomax, bowel regimen, Alexandra was removed 01/15, patient was not able to urinate
Reinsert Alexandra�she will need to be discharged with it, follow-up with urology in the office for void trial
Creatinine now normal, was 2.3 upon admission
Monitor creatinine, no nephrotoxic drugs/NSAIDs
#Opioid-induced constipation
Patient has not had a bowel movement despite aggressive bowel regimen
Abdominal x-ray shows moderate fecal material in the descending colon and rectum
Give magnesium citrate 300 mL x 1, give milk of molasses enema
#Acute urinary tract infection
Urine cultures growing Klebsiella, sensitive to everything except ampicillin
Change IV Rocephin to Augmentin D3/5 to complete a 5-day course
#Worsening diffuse muscle spasms
Discussed with neurology, who suspects this is psychogenic and recommends cognitive behavioral therapy
Started on Seroquel 12.5 mg twice daily by neurology, dose increased to 25 mg twice daily 01/13
No improvement w/ flexeril or baclofen
Head CT neg, trial of tizanidine, PT/OT rec SNF
#Recent back surgery in September 2024 at [facility]
#Chronic back pain with daily opioid use and dependency
Continue home oxycodone 20 mg 3 times daily, Percocet as needed
#Complex regional pain syndrome
Continue gabapentin, Cymbalta, amitriptyline, opioids as above
#Vitamin B12 deficiency
Recently received vitamin B12 injection
Vitamin B12 levels normal at 301
Started oral vitamin B supplement, continue IM injections monthly
#Insomnia
Continue amitriptyline at bedtime, Ambien at bedtime
DVT prophylaxis�subcu Lovenox
Full code
Updated daughter on phone 01/15
Total time spent to see the patient on the floor, examine the patient, review data and lab results, discuss treatment plan with patient, nursing staff around 50 minutes.
Physical Exam
General: Obese, no acute distress
HEENT: Normocephalic, Atraumatic, EOMI, MMM
Respiratory: Clear to Auscultation bilaterally
Cardiac: Normal S1/S2, Regular Rate and Rhythm
GI: Soft, Nontender, Nondistended, Normal Bowel Sounds
Extremities: No Clubbing, Cyanosis, or Edema
Neuro: Intermittent jerking noted
Anticipated Discharge: Within 24 hours
Subjective/Interval History
-
Date of Service: January 15, 2025
Patient reports that the intensity and frequency of her muscle spasms are decreased. She has not had a bowel movement since admission. Alexandra was removed, she was unable to urinate. No fever, no vomiting.
Objective Data
-
Labs:
Laboratory Results
01/15/25
08:25
Sodium Pending
Potassium Pending
Chloride Pending
Carbon Dioxide Pending
BUN Pending
Creatinine Pending
Glucose Pending
Calcium Pending
Vital Signs:
Vital Signs
Temp Pulse Resp BP Pulse Ox
97.7 F 68 16 130/68 94
01/15/25 07:05 01/15/25 07:05 01/15/25 07:05 01/15/25 07:05 01/15/25 07:05
I&O
01/14/25 01/15/25 01/16/25
06:59 06:59 06:59
Intake Total 480 / 480
Output Total 1400 / 2100 1025 / 1025
Balance -1400 / -2100 -545 / -545
[2025-01-15 09:20] LABS: Blood Urea Nitrogen 24 mg/dl (7-17); Calcium 9.1 mg/dl (8.4-10.2); Carbon Dioxide 33 mmol/L (22-30); Chloride 99 mmol/L (98-107); Estimated Creatinine Clearance 47 ml/min; Glucose 99 mg/dl (70-99); Potassium 4.3 mmol/L (3.5-5.1); Sodium 138 mmol/L (135-145); eGFR 58.75
[2025-01-15] MEDS: LASIX 20 MG PO (09:29)
--- NOTE | 2025-01-15 11:14 | W.PN.NEURO.1 ---
Today's Communication / Plan
-
Advanced quetiapine to dosing of 25 mg twice a day although this will not remediate the patient's movement disorder as it is psychogenic in nature
Neuro Assessment/Plan
Assessment
74-year-old female with past medical history of hypertension, complex regional pain syndrome, recent back surgery at [facility] who presents from [facility] to [facility] on 01/12/2025 with her daughter for evaluation of 'muscle spasms' and
lethargy.
Labs: B12 301, BUN 41, Cr 2.3
Impression: involuntary movements of bilateral upper and lower extremities which appear variable; diagnosis functional neurologic disorder
Plan
Restarted vitamin B12 supplementation
Advanced quetiapine to dosing of 25 mg twice a day although this will not remediate the patient's movement disorder as it is psychogenic in nature
PT/OT evaluations
fall precautions
cognitive behavior therapy as outpatient
Will follow as needed
Subjective/Objective
Subjective Data
Date of Service: January 15, 2025
Patient reports movements have improved and she is still having difficulty with walking
Objective Data
Vital Signs
Temp Pulse Resp BP Pulse Ox
36.5 C 68 16 130/68 94
01/15/25 07:05 01/15/25 07:05 01/15/25 07:05 01/15/25 07:05 01/15/25 09:55
Lab Results
01/12/25 14:55
01/15/25 08:25
Sodium 138 mmol/L (135-145) 01/15/25 08:25
Potassium 4.3 mmol/L (3.5-5.1) 01/15/25 08:25
BUN 24 mg/dl (7-17) H 01/15/25 08:25
Glucose 99 mg/dl (70-99) 01/15/25 08:25
Calcium 9.1 mg/dl (8.4-10.2) 01/15/25 08:25
Vitamin B12 301 pg/ml (239-931) 01/12/25 15:47
Patient Allergies
nortriptyline HCl (From Pamelor) Allergy (Verified 01/12/25 15:43)
Tongue Swelling
Review of Systems
-
History Source: Patient
All other systems: Reviewed and negative
Physical Exam
-
General: No Apparent Distress and Appears Stated Age
Eyes: Round OU, [place] Conjunctivae and No Ptosis
HEENT: Anicteric and Moist Mucous Membranes
Neck: Full Range of Motion
Respiratory: No Dyspnea
Cardiac: No JVD
GI: Non-distended
Skin: Unremarkable
Extremities: No Clubbing, No Cyanosis and No Edema
Psych: Negative Intact Judgement/Insight
Extended Neurological Exam
Mood & Affect: Mood Unremarkable and Affect Unremarkable
Attention Span & Concentration: Awake, Alert and Interactive
Memory: Unremarkable
Tremor: Hand Tremor Absent and Head Tremor Absent
Involuntary Movement: None
Speech: Quality Unremarkable and Quantity Unremarkable
Cranial Nerve II: Left Eye: Pupillary Size Unremarkable and Visual Miller Grossly Intact
Cranial Nerve II: Right Eye: Pupillary Size Unremarkable and Visual Miller Grossly Intact
Cranial Nerves III, IV, : Extraocular Movement: Grossly Intact
Cranial Nerve VII: Facial Symmetry: Normal Facial Symmetry
Cranial Nerve VIII: Hearing: Unremarkable Hearing to Normal Conversational Volume
Cranial Nerve XI: Shoulder Shrug: Unremarkable
Muscle Strength, Overall: Spontaneously Moves
Muscle Bulk & Tone: Bulk Unremarkable and Tone Unremarkable
Touch Sensation: Unremarkable
Coordination: Reaches for Objects without Difficulty
Data Reviewed
-
CT Head: Report Reviewed
Reviewed with: Nurse Practioner and Patient
Old Records: Summarized
Past History
Past History
ED Past Medical History: Cancer (Breast cancer), HTN and Other (RSD, functional neurological disorder with movements)
ED Past Surgical History: Appendectomy, Cholecystectomy, Tonsilectomy and Other
Social History
Tobacco: Non-smoker
Alcohol: None
Drug: None
Personal:
Living: with family
Employment: Retired
Medications
-
Medications:
Generic Name Dose Route Start Last Admin
Trade Name Freq PRN Reason Stop Dose Admin
Acetaminophen 650 mg 01/12/25 19:27
Acetaminophen 325 Mg Tablet PO 02/09/25 19:26
Q4HPRN PRN
mild pain/SEAY/temp> 100.4F
Acetaminophen 325 mg 01/13/25 19:48
Acetaminophen 325 Mg Tablet PO 02/10/25 19:47
Q6HPRN PRN
severe pains
Amitriptyline HCl 100 mg 01/12/25 22:00 01/14/25 21:01
Amitriptyline 100 Mg Tablet PO 02/09/25 21:59 100 mg
HS KIM Administration
Amoxicillin/Clavulanate Potassium 1 tablet 01/14/25 20:00 01/15/25 07:34
Amoxicillin (875 Mg)/Clavulanate (125 Mg) Tablet PO 1 tablet
Q12 KIM Administration
Bisacodyl 5 mg 01/12/25 19:27 01/14/25 17:15
Bisacodyl 5 Mg Enteric Coated Tablet PO 02/09/25 19:26 5 mg
DAILYPRN PRN Administration
constipation
Bisacodyl 10 mg 01/12/25 19:27
Bisacodyl 10 Mg Rectal Suppository RECTAL 02/09/25 19:26
[id number] PRN
constipation
Cyanocobalamin 1,000 mcg 01/13/25 09:15 01/15/25 07:34
Cyanocobalamin (Vitamin B-12) 500 Mcg Tablet PO 02/10/25 09:14 1,000 mcg
DAILY KIM Administration
Duloxetine HCl 60 mg 01/12/25 21:30 01/15/25 07:33
Duloxetine Delayed Release 60 Mg Capsule PO 02/09/25 21:29 60 mg
BID KIM Administration
Enoxaparin Sodium 40 mg 01/14/25 18:00 01/14/25 17:09
Enoxaparin Sodium 40 Mg/0.4 Ml Syringe SC 02/11/25 17:59 40 mg
QPM KIM Administration
Furosemide 20 mg 01/13/25 08:00 01/15/25 09:29
Furosemide 20 Mg Tablet PO 02/10/25 07:59 20 mg
DAILY KIM Administration
Gabapentin 300 mg 01/12/25 20:00 01/15/25 07:34
Gabapentin 300 Mg Capsule PO 02/09/25 19:59 300 mg
BID KIM Administration
Gabapentin 600 mg 01/12/25 22:00 01/14/25 21:01
Gabapentin 300 Mg Capsule PO 02/09/25 21:59 600 mg
HS KIM Administration
Acebutolol 200 Mg 0 mg 01/14/25 16:00 01/15/25 07:35
Capsule Po Tid PO 02/11/25 15:59 200 mg
TID KIM Administration
Oxycodone HCl 20 mg 01/12/25 22:00 01/15/25 07:34
Oxycontin 10 Mg Controlled Release Tablet PO 01/26/25 21:59 20 mg
TID KIM Administration
Oxycodone HCl 10 mg 01/14/25 02:00
Oxycodone 10 Mg Regular Release Tablet PO 01/28/25 01:59
Q6HPRN PRN
severe pains
Polyethylene Glycol 17 grams 01/13/25 08:00 01/15/25 07:33
Polyethylene Glycol Powder 17 Grams Packet PO 02/10/25 07:59 17 grams
DAILY KIM Administration
Quetiapine Fumarate 25 mg 01/13/25 11:30 01/15/25 07:35
Quetiapine 25 Mg Tablet PO 02/09/25 19:59 25 mg
BID KIM Administration
Senna/Docusate Sodium 2 tablet 01/12/25 20:00 01/15/25 07:34
Docusate W/Senna (Dora-Colace) Tablet PO 02/09/25 19:59 2 tablet
BID KIM Administration
Sodium Chloride 0 flush 01/12/25 19:00
Sodium Chloride 0.9% (Flush) Syringe IV 02/09/25 18:59
PER PROTOCOL KIM
Tamsulosin HCl 0.4 mg 01/12/25 19:27 01/14/25 17:08
Tamsulosin 0.4 Mg Capsule PO 02/09/25 19:26 0.4 mg
QPM KIM Administration
Tizanidine HCl 2 mg 01/14/25 16:00 01/15/25 07:33
Tizanidine 2 Mg Tablet PO 02/11/25 15:59 2 mg
TID KIM Administration
Zolpidem Tartrate 5 mg 01/12/25 22:00 01/14/25 21:01
Zolpidem Tartrate 5 Mg Tablet PO 02/09/25 21:59 5 mg
HS KIM Administration
[2025-01-15] MEDS: DULCOLAX 10 MG RECTAL (12:03)
--- NOTE | 2025-01-15 12:10 | CM ---
Addendum entered by Lisa Solorzano 01/15/25 15:07:
Dtr returned call and provided the following SNF in this order of priority: [facility]. Will send referrals.
Dtr stated she would look for title insurance sales representative phone #, so CM can call to obtain billing information from the person who is handling this claim.
Plan: D/C to SNF when a bed is available
Original Note:
[facility], [facility] and [facility] all declined admission.
[facility] stated that there is an open worker's comp complaint outstanding preventing SNF from accepting her without the billing information, Dtr and pt made aware. LM message on dtr's voicemail. PT stated today that she is not interested in [facility].
Pt is upset with neuro diagnosis of functional neurologic disorder. Asking for a second option from a different neurology grouip. Pt informed if she wants a second opinion this will have to be done as an outpatient. Has not had BM within past 3 days.
Plan: D/C to SNF when accepted.
[2025-01-15] MEDS: CITROMA 300 ML PO (13:19)
[2025-01-15] MEDS: ROXICODONE 10 MG PO (13:24)
[2025-01-15 15:10] VITALS: BP 99/57
[2025-01-15] MEDS: LOVENOX 40 MG SC (17:24)
[2025-01-15] MEDS: FLOMAX 0.4 MG PO (17:24)
[2025-01-15] MEDS: AMBIEN 5 MG PO (20:54)
[2025-01-15] MEDS: ELAVIL 100 MG PO (20:54)
[2025-01-15] MEDS: NEURONTIN 600 MG PO (20:55)
[2025-01-15 23:30] VITALS: BP 91/53
[2025-01-16] MEDS: LASIX 20 MG PO (08:09)
[2025-01-16] MEDS: VITAMIN B-12 1000 MCG PO (08:09)
[2025-01-16] MEDS: NEURONTIN 300 MG PO ×2 (08:10→21:57)
[2025-01-16] MEDS: OXYCONTIN (CONTROLLED RELEASE) 20 MG PO ×3 (08:10→21:55)
[2025-01-16] MEDS: ZANAFLEX 2 MG PO ×3 (08:10→21:55)
[2025-01-16] MEDS: SEROQUEL 25 MG PO ×2 (08:10→21:55)
[2025-01-16] MEDS: AUGMENTIN 875 MG/125 MG 1 TABLET PO ×2 (08:10→21:54)
[2025-01-16] MEDS: CYMBALTA DELAYED RELEASE 60 MG PO ×2 (08:10→21:55)
[2025-01-16] MEDS: MIRALAX PO ×2 (08:11→21:58)
[2025-01-16] MEDS: NON-FORMULARY ITEM 200 MG PO ×3 (08:11→21:57)
[2025-01-16] MEDS: SENOKOT-S PO ×2 (08:12→21:59)
[2025-01-16 08:46] VITALS: BP 113/61; BP 115/59; PULSE 69
--- NOTE | 2025-01-16 09:02 | W.PN.HOSP.TC ---
Today's Communication/Plan
-
Discharge to short-term rehab when bed available
Assessment / Plan
Assessment / Plan
HPI: 74-year-old female with a past medical history of CRPS, chronic back pain on chronic opioids status post recent back surgery September 2024, and hypertension who presents to the ER for worsening diffuse muscle spasms. Daughter states patient started
having muscle spasms a year ago, which resolved spontaneously. Then the muscle spasms returned about 2-3 months ago, and have since worsened. Patient presented to the ER for these symptoms. She states Flexeril has not helped her. Daughter states
that the muscle spasms get worse with intentional movement, causing severe debility for the patient. Upon evaluation in the ED, patient was found to have acute urinary retention, requiring Alexandra placement. She had an elevated creatinine as well.
She denies chest pain, denies shortness of breath. She denies fever, chills. No nausea, no vomiting. She denies constipation, states her last bowel movement was yesterday and normal. She is on chronic opioids for her chronic back pain.
#Acute urinary retention
#Acute kidney injury from obstructive uropathy
Alexandra inserted in the ED on 01/12
Started Flomax, bowel regimen, Alexadnra was removed 01/15, patient was not able to urinate
Reinserted Alexandra 01/15�she will need to be discharged with it, follow-up with urology in the office for void trial
Creatinine now normal, was 2.3 upon admission
Monitor creatinine, no nephrotoxic drugs/NSAIDs
#Opioid-induced constipation
Patient has not had a bowel movement despite aggressive bowel regimen
Abdominal x-ray shows moderate fecal material in the descending colon and rectum
Resolved status post magnesium citrate 300 mL x 1, give milk of molasses enema
#Acute urinary tract infection
Urine cultures growing Klebsiella, sensitive to everything except ampicillin
Status post IV Rocephin
Continue Augmentin D4/5 to complete a 5-day course
#Worsening diffuse muscle spasms
#Functional neurologic disorder
Discussed with neurology, who suspects this is psychogenic and recommends cognitive behavioral therapy
No improvement w/ flexeril or baclofen
Head CT neg, trial of tizanidine, PT/OT rec SNF
#Recent back surgery in September 2024 at [facility]
#Chronic back pain with daily opioid use and dependency
Continue home oxycodone 20 mg 3 times daily, Percocet as needed
#Complex regional pain syndrome
Continue gabapentin, Cymbalta, amitriptyline, opioids as above
#Vitamin B12 deficiency
Recently received vitamin B12 injection
Vitamin B12 levels normal at 301
Started oral vitamin B supplement, continue IM injections monthly
#Insomnia
Continue amitriptyline at bedtime, Ambien at bedtime
DVT prophylaxis�subcu Lovenox
Full code
Updated daughter on phone 01/15
Total time spent to see the patient on the floor, examine the patient, review data and lab results, discuss treatment plan with patient, nursing staff around 40 minutes.
Physical Exam
General: Obese, no acute distress
HEENT: Normocephalic, Atraumatic, EOMI, MMM
Respiratory: Clear to Auscultation bilaterally
Cardiac: Normal S1/S2, Regular Rate and Rhythm
GI: Soft, Nontender, Nondistended, Normal Bowel Sounds
Extremities: No Clubbing, Cyanosis, or Edema
Neuro: Intermittent jerking noted
Anticipated Discharge: Within 24 hours
Subjective/Interval History
-
Date of Service: January 16, 2025
Patient has had multiple bowel movements. Continues to have intermittent muscle spasms and pain spells. Denies chest pain, denies shortness of breath. No fever, no vomiting.
Objective Data
-
Labs:
Laboratory Results
01/16/25
06:00
Sodium Pending
Potassium Pending
Chloride Pending
Carbon Dioxide Pending
BUN Pending
Creatinine Pending
Glucose Pending
Calcium Pending
Vital Signs:
Vital Signs
Temp Pulse Resp BP Pulse Ox
98.6 F 69 18 113/61 95
01/16/25 08:46 01/16/25 08:46 01/16/25 08:46 01/16/25 08:46 01/16/25 08:46
I&O
01/15/25 01/16/25 01/17/25
06:59 06:59 06:59
Intake Total 480 / 480 1680 / 1680
Output Total 1025 / 1025 1475 / 1475
Balance -545 / -545 205 / 205
[2025-01-16 10:19] LABS: Blood Urea Nitrogen 23 mg/dl (7-17); Calcium 9.3 mg/dl (8.4-10.2); Carbon Dioxide 33 mmol/L (22-30); Chloride 98 mmol/L (98-107); Estimated Creatinine Clearance 47 ml/min; Glucose 110 mg/dl (70-99); Potassium 4.0 mmol/L (3.5-5.1); Sodium 137 mmol/L (135-145); eGFR 58.75
--- NOTE | 2025-01-16 13:46 | CM ---
Received voicemail from daughter Kamla with workers comp claim information. Will follow-up on Saturday.
[place]: Cecille Gutierrez [phone]
Claim number [id number]
Plan: d/c to [facility]
[2025-01-16 15:29] VITALS: BP 105/57
[2025-01-16] MEDS: LOVENOX 40 MG SC (17:01)
[2025-01-16] MEDS: FLOMAX 0.4 MG PO (17:01)
[2025-01-16] MEDS: ELAVIL 100 MG PO (21:55)
[2025-01-16] MEDS: AMBIEN 5 MG PO (21:55)
[2025-01-16] MEDS: NEURONTIN 600 MG PO (21:56)
[2025-01-16 23:00] VITALS: BP 104/65; BP 132/67; BP 81/48; PULSE 78; PULSE 79; PULSE 84
[2025-01-17 07:05] VITALS: BP 104/60
[2025-01-17] MEDS: OXYCONTIN (CONTROLLED RELEASE) 20 MG PO ×3 (08:46→21:03)
[2025-01-17] MEDS: CYMBALTA DELAYED RELEASE 60 MG PO ×2 (08:46→20:58)
[2025-01-17] MEDS: SEROQUEL 25 MG PO ×2 (08:46→20:59)
[2025-01-17] MEDS: VITAMIN B-12 1000 MCG PO (08:46)
[2025-01-17] MEDS: NEURONTIN 300 MG PO ×2 (08:46→20:58)
[2025-01-17] MEDS: AUGMENTIN 875 MG/125 MG PO (08:46)
[2025-01-17] MEDS: NON-FORMULARY ITEM 200 MG PO ×3 (08:46→21:08)
[2025-01-17] MEDS: ZANAFLEX 2 MG PO ×3 (08:46→21:06)
[2025-01-17] MEDS: LASIX 20 MG PO (08:46)
[2025-01-17] MEDS: MIRALAX PO ×2 (08:47→21:00)
[2025-01-17] MEDS: SENOKOT-S PO ×2 (08:47→21:01)
[2025-01-17] MEDS: AUGMENTIN 875 MG/125 MG 1 TABLET PO ×2 (09:06→20:58)
--- NOTE | 2025-01-17 09:07 | W.PN.HOSP.TC ---
Today's Communication/Plan
-
Discharge to short-term rehab when bed available
Assessment / Plan
Assessment / Plan
HPI: 74-year-old female with a past medical history of CRPS, chronic back pain on chronic opioids status post recent back surgery September 2024, and hypertension who presents to the ER for worsening diffuse muscle spasms. Daughter states patient started
having muscle spasms a year ago, which resolved spontaneously. Then the muscle spasms returned about 2-3 months ago, and have since worsened. Patient presented to the ER for these symptoms. She states Flexeril has not helped her. Daughter states
that the muscle spasms get worse with intentional movement, causing severe debility for the patient. Upon evaluation in the ED, patient was found to have acute urinary retention, requiring Alexandra placement. She had an elevated creatinine as well.
She denies chest pain, denies shortness of breath. She denies fever, chills. No nausea, no vomiting. She denies constipation, states her last bowel movement was yesterday and normal. She is on chronic opioids for her chronic back pain.
#Acute urinary retention
#Acute kidney injury from obstructive uropathy
Alexandra inserted in the ED on 01/12
Started Flomax, bowel regimen, Alexandra was removed 01/15, patient was not able to urinate
Reinserted Alexandra 01/15�she will need to be discharged with it, follow-up with urology in the office for void trial
Creatinine now normal, was 2.3 upon admission
Monitor creatinine, no nephrotoxic drugs/NSAIDs
#Opioid-induced constipation
Patient has not had a bowel movement despite aggressive bowel regimen
Abdominal x-ray shows moderate fecal material in the descending colon and rectum
Resolved status post magnesium citrate 300 mL x 1, milk of molasses enema
She will need to continue an aggressive bowel regimen due to her high opioid regimen and immobility
#Acute urinary tract infection
Urine cultures growing Klebsiella, sensitive to everything except ampicillin
Status post IV Rocephin
Continue Augmentin D5/5 to complete a 5-day course
#Worsening diffuse muscle spasms
#Functional neurologic disorder
Discussed with neurology, who suspects this is psychogenic and recommends cognitive behavioral therapy
Neurology started the patient on Seroquel 25 mg twice a day to help tolerate the symptoms
No improvement w/ flexeril or baclofen
Head CT neg, trial of tizanidine, PT/OT rec SNF
#Recent back surgery in September 2024 at [facility]
#Chronic back pain with daily opioid use and dependency
Continue home oxycodone 20 mg 3 times daily, Percocet as needed
#Complex regional pain syndrome
Continue gabapentin, Cymbalta, amitriptyline, opioids as above
#Vitamin B12 deficiency
Recently received vitamin B12 injection
Vitamin B12 levels normal at 301
Started oral vitamin B supplement, continue IM injections monthly
#Insomnia
Continue amitriptyline at bedtime, Ambien at bedtime
DVT prophylaxis�subcu Lovenox
Full code
Updated daughter on phone 01/15
Total time spent to see the patient on the floor, examine the patient, review data and lab results, discuss treatment plan with patient, nursing staff around 41 minutes.
Physical Exam
General: Obese, no acute distress
HEENT: Normocephalic, Atraumatic, EOMI, MMM
Respiratory: Clear to Auscultation bilaterally
Cardiac: Normal S1/S2, Regular Rate and Rhythm
GI: Soft, Nontender, Nondistended, Normal Bowel Sounds
Extremities: No Clubbing, Cyanosis, or Edema
Neuro: Intermittent jerking noted
Anticipated Discharge: 24 - 48 hours
Subjective/Interval History
-
Date of Service: January 17, 2025
Patient complains of diarrhea from her laxatives. She also complains of bladder spasms. Continues to have intermittent muscle spasms and jerks. No fever, no vomiting.
Objective Data
-
Vital Signs:
Vital Signs
Temp Pulse Resp BP Pulse Ox
97.5 F 65 16 104/60 92
01/17/25 07:05 01/17/25 07:05 01/17/25 07:05 01/17/25 07:05 01/17/25 07:05
I&O
01/16/25 01/17/25 01/18/25
06:59 06:59 06:59
Intake Total 1680 / 1680 480 / 480
Output Total 1475 / 1475 900 / 900
Balance 205 / 205 -420 / -420
[2025-01-17] MEDS: VALIUM 2 MG PO (10:40)
[2025-01-17 15:10] VITALS: BP 118/56
--- NOTE | 2025-01-17 15:29 | CM ---
Recommendation for SNF for STR. No acceptances as yet. Provided and explained [employer] list. Requested patient choose additional preferences.
[2025-01-17] MEDS: FLOMAX 0.4 MG PO (17:03)
[2025-01-17] MEDS: LOVENOX 40 MG SC (17:03)
[2025-01-17] MEDS: AMBIEN 5 MG PO (21:03)
[2025-01-17] MEDS: ELAVIL 100 MG PO (21:06)
[2025-01-17] MEDS: NEURONTIN 600 MG PO (21:07)
[2025-01-17 23:33] VITALS: BP 119/54
[2025-01-18] VITALS (7 sets, daily range): BP systolic 88–132; BP diastolic 54–66; PULSE 63–79; O2SAT 95
[2025-01-18] MEDS: AMBIEN 5 MG PO ×2 (01:24→21:21)
[2025-01-18] MEDS: OXYCONTIN (CONTROLLED RELEASE) 20 MG PO ×3 (08:21→21:21)
[2025-01-18] MEDS: AUGMENTIN 875 MG/125 MG 1 TABLET PO (08:22)
[2025-01-18] MEDS: ZANAFLEX 2 MG PO ×3 (08:22→21:22)
[2025-01-18] MEDS: CYMBALTA DELAYED RELEASE 60 MG PO ×2 (08:22→19:41)
[2025-01-18] MEDS: VITAMIN B-12 1000 MCG PO (08:22)
[2025-01-18] MEDS: LASIX 20 MG PO (08:22)
[2025-01-18] MEDS: SENOKOT-S PO ×2 (08:25→19:38)
[2025-01-18] MEDS: MIRALAX PO ×2 (08:25→19:27)
[2025-01-18] MEDS: NEURONTIN 300 MG PO ×2 (08:26→19:41)
[2025-01-18] MEDS: SEROQUEL 25 MG PO ×2 (08:26→19:41)
[2025-01-18] MEDS: NON-FORMULARY ITEM 200 MG PO ×3 (09:23→21:20)
[2025-01-18 10:20] LABS: Blood Urea Nitrogen 19 mg/dl (7-17); Calcium 8.9 mg/dl (8.4-10.2); Carbon Dioxide 34 mmol/L (22-30); Chloride 99 mmol/L (98-107); Estimated Creatinine Clearance 47 ml/min; Glucose 99 mg/dl (70-99); Potassium 4.0 mmol/L (3.5-5.1); Sodium 147 mmol/L (135-145); eGFR 58.75
[2025-01-18] MEDS: IMODIUM 2 MG PO (11:22)
--- NOTE | 2025-01-18 12:31 | W.PN.HOSP.TC ---
Today's Communication/Plan
-
imodium for diarrhea
maintain on oral augmentin
d/c planning for snf rehab
Assessment / Plan
Assessment / Plan
HPI: 74-year-old female with a past medical history of CRPS, chronic back pain on chronic opioids status post recent back surgery September 2024, and hypertension who presents to the ER for worsening diffuse muscle spasms. Daughter states patient started
having muscle spasms a year ago, which resolved spontaneously. Then the muscle spasms returned about 2-3 months ago, and have since worsened. Patient presented to the ER for these symptoms. She states Flexeril has not helped her. Daughter states
that the muscle spasms get worse with intentional movement, causing severe debility for the patient. Upon evaluation in the ED, patient was found to have acute urinary retention, requiring Alexandra placement. She had an elevated creatinine as well.
She denies chest pain, denies shortness of breath. She denies fever, chills. No nausea, no vomiting. She denies constipation, states her last bowel movement was yesterday and normal. She is on chronic opioids for her chronic back pain.
1. Acute urinary retention
Acute kidney injury from obstructive uropathy
- Alexandra placed in ER, attempted TOV but failed, now replaced
- Will need re-attempt of TOV in SNF
- renal function has normalized
2. Klebsiella UTI
- Urine cs reviewed, sens to oral abx
- was on rocephin, maintain on augmentin for 5 days
3. Opioid-induced constipation
- Abdominal x-ray shows moderate fecal material in the descending colon and rectum
- Resolved status post magnesium citrate 300 mL x 1, milk of molasses enema
4. Diffuse muscle spasms
- started on seroquel by neurology. also on tizanidine
- No improvement w/ flexeril or baclofen
- CT head neg
5. Recent back surgery in September 2024 at [facility]
Chronic back pain with daily opioid use and dependency
- Continue home oxycodone 20 mg 3 times daily, Percocet as needed
6. Complex regional pain syndrome
- Continue gabapentin, Cymbalta, amitriptyline, opioids as above
7. Vitamin B12 deficiency
- Recently received vitamin B12 injection
- Vitamin B12 levels normal at 301
- Started oral vitamin B supplement, continue IM injections monthly
8. Insomnia
Continue amitriptyline at bedtime, Ambien at bedtime
9. Diarrhea
- h/o of diarrhea in past
- started on prn imodium, diarrhea likely with abx use related colonic dysbiosis
DVT prophylaxis�subcu Lovenox
Full code
Anticipated Discharge: Within 24 hours
Subjective/Interval History
-
Date of Service: January 18, 2025
Complaining of some diarrhea overnight
no spasms reported
afebrile
Objective Data
-
Labs:
Laboratory Results
01/18/25
09:23
Sodium 147 H D
Potassium 4.0
Chloride 99
Carbon Dioxide 34 H
BUN 19 H
Creatinine 1.0
Glucose 99
Calcium 8.9
Vital Signs:
Vital Signs
Temp Pulse Resp BP Pulse Ox
97.6 F 102 16 118/66 96
01/18/25 12:24 01/18/25 12:24 01/18/25 12:24 01/18/25 12:24 01/18/25 12:24
I&O
01/17/25 01/18/25 01/19/25
06:59 06:59 06:59
Intake Total 480 / 480 480 / 480
Output Total 900 / 900 1025 / 1025 200 / 200
Balance -420 / -420 -545 / -545 -200 / -200
Review of Systems
-
Respiratory: Reports No Symptoms
Cardiac: Reports No Symptoms
Abdomen/GI: Reports Diarrhea; Denies Abdominal Pain
Physical Exam
-
General: Negative Appears in Distress
HEENT: Negative Oxygen
Neuro: Awake, Alert, Oriented and No Motor Deficits
--- NOTE | 2025-01-18 12:32 | CM ---
[facility] 01/18/25 14:44:
Per pt request, general info provided regarding hospice
Her spouse is with terminal cancer
Hospice provider list given per pt request
Emotional support provided
Addendum entered by [facility] 01/18/25 13:08:
Dtr called- update provided
At [facility] August 2024 and went to [facility] for a few weeks and then home
From [facility] October 2024, went to [facility] for a few weeks
Discharged from [facility] on 11/04 to [facility] where she has been
This info provided to [facility] admissions
Addendum entered by [facility] 01/18/25 12:44:
Phone- [phone] Fax- [phone]
Original Note:
CM reviewed pt with attending
Multiple calls to SNF, pt denied at [facility], [facility], [facility]
VM left for [facility] comnpleted onsite visit with pt today- pt offered bed tomorrow and pt in agreement
VM left for dtr per pt request
IMM verbally reveiwed bedside
Transport forms placed on chart
Discharge Disposition- [facility] tomorrow via BLS
[2025-01-18] MEDS: FLOMAX 0.4 MG PO (17:08)
[2025-01-18] MEDS: LOVENOX 40 MG SC (17:09)
[2025-01-18] MEDS: ELAVIL 100 MG PO (21:21)
[2025-01-18] MEDS: NEURONTIN 600 MG PO (21:22)
[2025-01-19] MEDS: ROXICODONE 10 MG PO (05:39)
[2025-01-19 06:07] VITALS: BMI 25.5
[2025-01-19 07:00] VITALS: BP 113/60
[2025-01-19 08:40] LABS: Blood Urea Nitrogen 21 mg/dl (7-17); Calcium 9.4 mg/dl (8.4-10.2); Carbon Dioxide 35 mmol/L (22-30); Chloride 98 mmol/L (98-107); Estimated Creatinine Clearance 47 ml/min; Glucose 93 mg/dl (70-99); Potassium 4.0 mmol/L (3.5-5.1); Sodium 138 mmol/L (135-145); eGFR 58.75
[2025-01-19] MEDS: SENOKOT-S 2 TABLET PO (09:10)
[2025-01-19] MEDS: OXYCONTIN (CONTROLLED RELEASE) 20 MG PO (09:10)
[2025-01-19] MEDS: CYMBALTA DELAYED RELEASE 60 MG PO (09:11)
[2025-01-19] MEDS: LASIX 20 MG PO (09:11)
[2025-01-19] MEDS: NEURONTIN 300 MG PO (09:11)
[2025-01-19] MEDS: SEROQUEL 25 MG PO (09:11)
[2025-01-19] MEDS: VITAMIN B-12 1000 MCG PO (09:12)
[2025-01-19] MEDS: ZANAFLEX 2 MG PO (09:12)
[2025-01-19] MEDS: NON-FORMULARY ITEM 200 MG PO (09:12)
[2025-01-19] MEDS: MIRALAX PO (09:47)
--- NOTE | 2025-01-19 09:51 | W.PN.UPDATE ---
Update Note
Progress Note Update
Case management notified that patient have a bed and insurance acceptance with transfer planned at 1400
Daughter may have expressed some concern regarding patient medication list
Discussed with patient who is AO x 3 today, patient tells me that patient have a long complex history of requiring pain medication and sees a pain specialist. Patient have been tried on multiple things over span of 20 to 25 years and current
regimen is the best. Patient have some semblance of improved quality of life. Discussed concern of potential dependence although this patient not having side effect of excessive sedation/confusion I have opted to have patient follow-up with pain
specialist to discuss de-escalation/weaning of regimen.
I tried to contact patient daughter Brianna over the phone, phone went to voicemail and mailbox is full as well.
--- NOTE | 2025-01-19 09:56 | W.DCSUMMARY ---
Discharge Summary
Discharge Data
Date of Admission: 01/12/25
Date of Discharge: 01/19/25
-
Pending Results: No
Hospital Course
Discharging Physician : Dr Antonio Napoles
Disposition : To SNF rehab
Primary care physician : Dr Moris Hawkins
Principal Discharge diagnosis :
Acute urinary retention
Klebsiella urinary tract infection
Opioid-induced constipation
Diffuse muscle spasms
Complex regional pain syndrome
Chronic pain and narcotic dependence
Chronic Discharge diagnosis :
Recent back surgery
Insomnia
Essential hypertension
Hyperlipidemia
Obesity
History of COVID-19 infection
Physical examination:
HEENT: No pallor, cyanosis, or jaundice. Throat clear.
NECK: Supple. No JVD.
RESPIRATORY: Lungs clear to auscultation.
CVS: S1, S2 normal. RRR. No murmur, rub or gallop.
ABDOMEN: Soft, non-tender. No distension. BS+/normal.
EXTREMITIES: No peripheral cyanosis or edema.
REPORT PROGRAMMER: AOx3. No focal deficits.
Hospital Course :
Patient is a 74-year-old female with above past medical history came to ER for having worsening diffuse muscle spasms. Apparently patient has been dealing with muscle spasms on and off over the last 1 year but for last few months seem to be
worsening. Patient has been tried on different medication and has not helped. Neurology was involved in care due to patient complex history of spinal/pain issues. Neurology recommended patient to be started on Seroquel for which Zanaflex added as
well later to help with spasms. Neurology recommended cognitive behavioral therapy as multiple different therapies has failed in the past. Patient also was noted to having new urinary retention for which Alexandra catheter was placed. Patient had
some renal dysfunction which improved. Patient was noted to having opioid-induced constipation and likely was contributing to retention issue this was resolved with laxative therapy. Alexandra catheter was removed although patient failed voiding
trial. Alexandra needed to be replaced and patient was discharged to care home facility on Alexandra catheter. Patient UA was suggestive of pyuria and bacteriuria for which patient was started on empiric antibiotic, later on urine culture isolated
Klebsiella pneumoniae which was sensitive to multiple oral antibiotic. Patient was discharged on oral Augmentin course to finish at SNF rehab. Patient remains at high risk of readmission due to respiratory depression/narcotic related toxic
encephalopathy/hypercapnic respiratory failure although patient stated of having difficult time controlling symptoms without the medications. Patient is currently following with a pain specialist and I have encouraged to continue to do so
postdischarge.
Important imaging findings :
None
Procedure findings :
None
Discharge Plan
-
Patient Disposition: Usp/SNF
Discharge Diagnosis/Procedures: Urinary retention, Klebsiella UTI, Opioid induced constipation, Muscle spasms, CRPS
Condition: Fair
Diet: Regular
Activity: As tolerated
Driving Restrictions: No driving
Bathing Restrictions: OK to Shower
Referrals:
Moris Hawkins MD [Family Provider, Family Practice] - in one week
Prescriptions:
New
polyethylene glycol 3350 17 gram Powder In Packet
17 g PO BID Qty: 30 0RF
Rx Instructions:
Hold dose if having diarrhea
quetiapine 25 mg Tablet
25 mg PO BID Qty: 60 0RF
Rx Instructions:
Hold if sedated
zolpidem [Ambien] 5 mg tablet
5 mg PO HS PRN (Reason: insomnia) Qty: 5 0RF
oxycodone [OxyContin] 20 mg tablet,oral only,ext.rel.12 hr
20 mg PO TID Qty: 9 0RF
oxycodone-acetaminophen [Percocet] 10-325 mg tablet
1 tab PO Q6H PRN (Reason: Breakthrough pain) Qty: 12 0RF
amoxicillin-pot clavulanate 875-125 mg tablet
1 tab PO BID Qty: 6 0RF
Rx Instructions:
last dose 01/21 PM
Continued
acebutolol 200 mg Capsule
200 mg PO TID
gabapentin 300 mg capsule
600 mg PO HS
gabapentin 300 mg Capsule
300 mg PO BID
furosemide [Lasix] 20 mg Tablet
20 mg PO DAILY
duloxetine 60 mg Capsule,Delayed Release(Dr/Ec)
60 mg PO BID
cyanocobalamin (vitamin B-12) 1,000 mcg/mL Solution
1,000 mcg IM QMONTH
bisacodyl [Dulcolax (bisacodyl)] 5 mg Tablet,Delayed Release (Dr/Ec)
5 mg PO DAILYPRN PRN (Reason: constiaption)
amitriptyline 100 mg Tablet
100 mg PO HS
Discontinued
oxycodone-acetaminophen [Percocet] 10-325 mg Tablet
1 tab PO Q6HPRN PRN (Reason: severe pains)
zolpidem [Ambien] 5 mg Tablet
5 mg PO HS
oxycodone [OxyContin] 20 mg Tablet,Oral Only,Ext.Rel.12 Hr
20 mg PO TID
Discharge Orders:
Discharge Patient (As Directed); Ordered 01/19/25
Ordered By: Antonio Napoles
Discharge Date and Time
Print Language: COOK ISLANDER
--- NOTE | 2025-01-19 10:02 | CM ---
MD entered order for discharge today .
Spoke with Juan from [facility] she accepted pt today.
Medical nec form completed. for ambulance transport
Spoke with dena Prado [phone] she agrees with dc to and ambulance transport.
Itz
report [phone]
fax [phone]
PLAN to [facility] via ambulance
[2025-01-19 13:44] VITALS: BP 125/59
== END 2025-01-19 14:28 | DRG 683 ==
LOC: 4 EAST ACU 18:16
PROVIDERS: Emergency Medicine; ADMITTING PHYSICIAN Family Medicine; ATTENDING PHYSICIAN Hospitalist; EMERGENCY PHYSICIAN Emergency Medicine; FAMILY PHYSICIAN Family Medicine
DX: N17.9 Acute kidney failure, unspecified (principal); F11.20 Opioid dependence, uncomplicated; N39.0 Urinary tract infection, site not specified; G90.59 Complex regional pain syndrome I of other specified site; N13.9 Obstructive and reflux uropathy, unspecified; I10 Essential (primary) hypertension; M48.00 Spinal stenosis, site unspecified; E53.8 Deficiency of other specified B group vitamins; M54.9 Dorsalgia, unspecified; B96.1 Klebsiella pneumoniae [K. pneumoniae] as the cause of diseases classified elsewhere; K59.03 Drug induced constipation; T40.2X5A Adverse effect of other opioids, initial encounter; M62.838 Other muscle spasm; G47.00 Insomnia, unspecified; E66.9 Obesity, unspecified; E78.5 Hyperlipidemia, unspecified; Z79.899 Other long term (current) drug therapy; Z68.25 Body mass index [BMI] 25.0-25.9, adult
CPT/HCPCS: 51702; 51798; 70450; 74018; 80048; 80053; 81003; 81015; 82570; 82607; 82728; 82746; 83735; 83935; 84156; 84300; 85025; 87070; 87077; 87086; 87186; 93005; 96360; 96361; 97163; 97167; 97530; 97535; 99285

== ENCOUNTER → 2025-02-16 20:00 | Outpatient (REF) | payer OTHER, MEDICARE, SELFPAY ==
[2025-02-17 14:12] LABS: Urine Character Cloudy (Clear)
[2025-02-17 14:18] LABS: Urine Red Blood Cell 0-2 /HPF (0-2); Urine Squamous Cell 0-2 /LPF (Few); Urine White Cell 70-80 /HPF (0-5)
== END ==
LOC: OLABN 20:00
PROVIDERS: ATTENDING PHYSICIAN Student in an Organized Health Care Education/Training Program
DX: N13.9 Obstructive and reflux uropathy, unspecified (principal); N39.0 Urinary tract infection, site not specified
CPT/HCPCS: 81003; 81015; 87086; 87088; 87186

== ENCOUNTER → 2025-02-17 14:00 | Outpatient (REF) | payer OTHER, MEDICARE, SELFPAY ==
[2025-02-17 14:39] LABS: Hematocrit 32.6 % (37.0-47.0); Hemoglobin 10.0 g/dL (12.0-16.0); Mean Corp Hgb Conc. 30.7 g/dL (33.0-37.0); Mean Corpuscular Volume 84.7 fL (81.0-99.0); Platelet Count 192 10^3/uL (130-400); Red Cell Dist. Width 15.9 % (11.5-14.5)
[2025-02-17 15:43] LABS: AST (SGOT) 20 U/L (14-36); Albumin 4.1 g/dl (3.5-5.0); Blood Urea Nitrogen 20 mg/dl (7-17); Carbon Dioxide 34 mmol/L (22-30); Chloride 99 mmol/L (98-107); Glucose 99 mg/dl (70-99); Total Protein 6.6 g/dl (6.3-8.2); eGFR 52.40
[2025-02-17 15:53] LABS: ALT (SGPT) < 10 U/L (0-35); Alkaline Phosphatase 81 U/L (38-126); Calcium 8.7 mg/dl (8.4-10.2); Potassium 3.9 mmol/L (3.5-5.1); Sodium 139 mmol/L (135-145)
== END ==
LOC: OLABN 14:00
PROVIDERS: ATTENDING PHYSICIAN Student in an Organized Health Care Education/Training Program
DX: N13.9 Obstructive and reflux uropathy, unspecified (principal); N39.0 Urinary tract infection, site not specified
CPT/HCPCS: 36415; 80053; 85027

== ENCOUNTER 2025-02-23 23:56 | Inpatient (IN) | payer MEDICARE, SELFPAY ==
[2025-02-23 18:29] VITALS: BP 107/73
[2025-02-23 18:37] VITALS: BMI 25.1
[2025-02-23 19:56] VITALS: BP 100/56
[2025-02-23 20:07] VITALS: BP 102/62
[2025-02-23 20:16] LABS: Hematocrit 32.8 % (37.0-47.0); Hemoglobin 9.8 g/dL (12.0-16.0); Mean Corp Hgb Conc. 29.9 g/dL (33.0-37.0); Mean Corpuscular Volume 87.0 fL (81.0-99.0); Nucleated Red Blood Cells % 0 %; Platelet Count 174 10^3/uL (130-400); Red Cell Dist. Width 15.4 % (11.5-14.5)
[2025-02-23 20:35] LABS: ALT (SGPT) 11 U/L (0-35); AST (SGOT) 19 U/L (14-36); Albumin 4.0 g/dl (3.5-5.0); Alkaline Phosphatase 84 U/L (38-126); Blood Urea Nitrogen 23 mg/dl (7-17); Calcium 8.7 mg/dl (8.4-10.2); Carbon Dioxide 33 mmol/L (22-30); Chloride 99 mmol/L (98-107); Estimated Creatinine Clearance 36 ml/min; Glucose 85 mg/dl (70-99); Potassium 4.1 mmol/L (3.5-5.1); Sodium 136 mmol/L (135-145); Total Protein 6.4 g/dl (6.3-8.2); eGFR 42.88
[2025-02-23] MEDS: NSS 1000 IV (21:50)
[2025-02-23 22:15] VITALS: BP 102/90; BP 116/98; PULSE 67; PULSE 69
[2025-02-23 22:33] VITALS: BP 110/48
[2025-02-23 22:41] LABS: Urine Character Slightly Cloudy (Clear)
[2025-02-23 22:48] LABS: Urine Squamous Cell 21-25 /LPF (Few)
[2025-02-23 22:49] LABS: Urine Red Blood Cell 0-2 /HPF (0-2)
[2025-02-23 23:00] VITALS: BP 112/49
--- NOTE | 2025-02-23 23:08 | ED.GENMED ---
History of Present Illness
General
Chief Complaint: Blood Pressure Problem
Source: significant other
Time Seen by Provider: 02/23/25 20:44
History of Present Illness
History of Present Illness:
74-year-old female with history of high blood pressure, complex regional pain syndrome to the right arm, toxic myoclonic jerking from polypharmacy presenting to the emergency department for concern of low blood pressure. Patient presents from
nursing facility where earlier today she was noted to have low blood pressure. Blood pressure was noted to be 60 over 40s. Daughter at bedside notes that they still gave her her blood pressure medication. Patient was also feeling dizzy and
lightheaded and at the time had blurred vision and double vision. She notes that the dizziness was worse with sitting up. She was recently treated for UTI with Macrobid, found to have urine culture positive for E. coli and medication was switched
to ciprofloxacin last evening. She reports 2 doses of ciprofloxacin. She notes that up until yesterday was having dysuria which improved after the first dose of Cipro. Denies any present abdominal pain. Denies chest pain or difficulty breathing.
Visual changes have improved. Denies additional acute medical complaints
Past History
Past History
ED Past Medical History: Cancer (Breast cancer), HTN and Other (RSD, functional neurological disorder with movements)
ED Past Surgical History: Appendectomy, Cholecystectomy, Tonsilectomy and Other
Social History
Tobacco: Non-smoker
Alcohol: None
Drug: None
Personal:
Living: with family
Employment: Retired
Phy Exam
Physical Exam
Physical Exam:
General: Well-appearing, no clinical signs of dehydration, nontoxic and in no acute distress
HEENT: protecting airway, pupils equal and reactive, extraocular movements intact
Neck: appears supple
CV: Normal heart rate, regular rhythm
Resp: No accessory muscle use, no increased work of breathing, lungs clear to auscultation bilaterally
Abd: Soft and non-distended, no tenderness to palpation
Extremities: No deformities, no swelling, no erythema
Neuro: alert, involuntary jerking movements of the lower extremities, which daughter and patient note as chronic
: deferred
Rectal: deferred
Psych: Normal affect
Skin: Intact
Course
Orders/Labs/Results
Orders:
Orders
02/23/25 18:47
EKG [Electrocardiogram (*1)] Urgent
Reason for Study: Vertigo / Dizzy
02/23/25 18:48
EKG- Treatment ONCE
02/23/25 20:04
Complete Blood Count/With Diff Urgent
Comprehensive Metabolic Panel Urgent
Lactic Acid Urgent
02/23/25 20:05
Blood Culture Urgent
MAMIE Source: Blood/Venous
Specimen Description:
Blood Culture Urgent
MAMIE Source: Blood/Venous
Specimen Description:
02/23/25 20:21
CT Head W/o Iv Contrast Urgent
Comment:
Reason For Exam: dizziness
02/23/25 20:44
Orthostatic VS- Treatment ONCE
02/23/25 21:37
0.9% Sodium Chloride 1000 ml [Nss] 1,000 ml IV BOLUS
02/23/25 22:16
Alexandra Catheter [Catheter- Indwelling] As Directed
Reason for insertion: Chronic Alexandra on Admit
Size: 14
Type: Indwelling
02/23/25 22:33
Urinalysis Reflex To Culture Urgent
Date Specimen was Collected: 02/23/25
Time Specimen was Collected: 21:32
Urine Microscopic Reflex Cult Urgent
Urine Culture Urgent
MAMIE Source: U
Specimen Description:
Date Specimen was Collected: 02/23/25
Time Specimen was Collected: 21:32
02/23/25 23:07
Cefepime HCl [Maxipime] 2,000 mg IV NOW STA
Abnormal Lab Results
02/23/25 02/23/25
20:04 22:33
RBC 3.77 L 10^6/uL
(4.20-5.40)
Hgb 9.8 L g/dL
(12.0-16.0)
Hct 32.8 L %
(37.0-47.0)
MCH 26.0 L pg
(27.0-31.0)
MCHC 29.9 L g/dL
(33.0-37.0)
RDW 15.4 H %
(11.5-14.5)
MPV 11.0 H fL
(7.4-10.4)
Carbon Dioxide 33 H mmol/L
(22-30)
BUN 23 H mg/dl
(7-17)
Creatinine 1.3 H mg/dL
(0.6-1.0)
Urine Ketones 1+ A
(Negative)
Ur Occult Blood Reflex 1+ A
(Negative)
Leukocyte Esterase Rfl 1+ A
(Negative)
Urine Bacteria (Reflex) Few A
(Negative)
Urine Albumin (Reflex) 2+ A
(Neg - Trace)
02/23/25 20:04
02/23/25 20:04
Vital Signs
Initial and Last Documented VS:
Initial Vital Signs
BP
107/73
02/23/25 18:29
Last Documented Vital Signs
Temp Pulse Resp BP Pulse Ox
98.3 F 67 9 102/62 93
02/23/25 18:38 02/23/25 22:01 02/23/25 22:01 02/23/25 20:07 02/23/25 22:01
MDM/Problems Addressed
MDM/Problems Addressed:
74-year-old female with history of complex regional pain syndrome to the right arm, nontoxic metabolic jerking from polypharmacy and hypertension presenting for dizziness and lightheadedness with low blood pressure. Vital signs on arrival
significant for mildly low blood pressure.
On exam, patient is resting comfortably, no acute distress. Regarding patient's presenting hypotension, and preceding hypotension, concern for possible polypharmacy. Patient started ciprofloxacin yesterday which could be contributing to her
symptoms of dizziness. In addition, her blood pressure medication was given to her despite being hypotensive. Infectious pathology is also a consideration, actively being treated for UTI. However, not meeting any additional SIRS criteria.
Without present concern for sepsis. Orthostatic hypotension is also consideration. Patient has dry mucous membranes, possible volume depletion. However patient notes that she has not ambulated with the low blood pressure, so less likely to be
positional. Does note episode of diplopia so central neurologic process is a consideration, however no present focal neurologic deficits. She is having involuntary jerking of her lower extremities, however was recently seen by neurology and
thought to have toxic myoclonic jerking from polypharmacy. Without present concern for acute cause. Plan for laboratory analysis, CT brain imaging, Alexandra replaced with clean urine sample, IV fluids.
23:20 - Unable to obtain full orthostatic vital signs, unable to stand. However blood pressure did drop from laying to sitting. Labs relatively unremarkable. However clean urine specimen is still showing evidence of infection. Do not feel that
ciprofloxacin is the best choice for patient, will start on cefepime and send urine culture, with reported known positive culture for E. coli. CT brain shows severe hyperostosis frontalis interna and calvarial thickening of the frontal bones. Did
discuss this with neurosurgery who notes that chronic finding, thickening of the skull. At this time however feel patient warrants admission for symptomatic hypotension and concern for continued UTI
*Pulse Oximetry
SaO2: 93
Oxygen Mode of Delivery: Room air
Patient hypoxic: no
*EKG
Interpreted by ED Provider?: Yes
EKG Intrepretation Date: 02/23/25
EKG Intrepretation Time: 23:15
Interpretation: abnormal
Comparison EKG: changes noted
Heart Rate: 70
Rate: normal
Rhythm: sinus
[place]: normal axis
Interval: normal interval
QRS Pattern: normal QRS
Ischemia: non-specific ST changes
*Critical Care Note
Total Time (30-74mins, 75-104mins- exclusive of procedures): Not Applicable
ED Attending Note
-
Portions of this chart may have been created with voice recognition software.� Occasional wrong word or��sound alike� substitutions may have occurred due to the inherent limitations of voice recognition software.
Discharge Plan
Departure
Prescriptions:
No Action
acebutolol 200 mg Capsule
200 mg PO TID
gabapentin 300 mg capsule
600 mg PO HS
gabapentin 300 mg Capsule
300 mg PO BID
furosemide [Lasix] 20 mg Tablet
20 mg PO DAILY
duloxetine 60 mg Capsule,Delayed Release(Dr/Ec)
60 mg PO BID
cyanocobalamin (vitamin B-12) 1,000 mcg/mL Solution
1,000 mcg IM QMONTH
bisacodyl [Dulcolax (bisacodyl)] 5 mg Tablet,Delayed Release (Dr/Ec)
5 mg PO DAILYPRN PRN (Reason: constiaption)
amitriptyline 100 mg Tablet
100 mg PO HS
polyethylene glycol 3350 17 gram Powder In Packet
17 g PO BID Qty: 30 0RF
Rx Instructions:
Hold dose if having diarrhea
quetiapine 25 mg Tablet
25 mg PO BID Qty: 60 0RF
Rx Instructions:
Hold if sedated
zolpidem [Ambien] 5 mg tablet
5 mg PO HS PRN (Reason: insomnia) Qty: 5 0RF
oxycodone [OxyContin] 20 mg tablet,oral only,ext.rel.12 hr
20 mg PO TID Qty: 9 0RF
oxycodone-acetaminophen [Percocet] 10-325 mg tablet
1 tab PO Q6H PRN (Reason: Breakthrough pain) Qty: 12 0RF
amoxicillin-pot clavulanate 875-125 mg tablet
1 tab PO BID Qty: 6 0RF
Rx Instructions:
last dose 01/21 PM
tizanidine 2 mg capsule
2 mg PO Q8H PRN (Reason: muscle spasticity) Qty: 14 0RF
Rx Instructions:
Hold dose if SBP < 110 or sedated
Referrals:
UNKNOWN - PT DOES,NOT KNOW [Family Provider]
Interventions
Interventions:
*Risk Screen - Suicide Last Done: 02/23/25 18:45
*General Assessment Last Done: 02/23/25 18:45
*Neglect/Abuse Screening Last Done: 02/23/25 18:45
*ED- Fall Risk Assessment Last Done: 02/23/25 18:45
*ED COVID-19 Vaccine History Last Done: 02/23/25 18:45
*ED Influenza Vaccine History Last Done: 02/23/25 18:45
ED- Cardiac Assessment Last Done: 02/23/25 18:40
ED- Neurological Assessment Last Done: 02/23/25 18:40
ED- Pulmonary Assessment Last Done: 02/23/25 18:40
Discharge Date and Time
Print Language: MAORI
--- NOTE | 2025-02-23 23:29 | HPS.HSE ---
Family Physician
-
Family Physician: NOT KNOW UNKNOWN - PT DOES
Chief Complaint
-
Dizziness, blurred vision, recent UTI
History of Present Illness
74-year-old female from longterm who was recently treated for UTI with Macrobid changed to Cipro yesterday after positive culture for E. coli. Her daughter states she has had 2 doses of Cipro. She reported urinary urgency with cloudy urine
which prompted facility to check a urinalysis. She reports her blood pressure has been low at the longterm but they did not hold her BP medication. At the longterm she was reportedly 60 over 40s prior to arrival with dizziness and blurred
vision. On arrival in the ER blood pressure was 100/56. She complains of increased jerking to her lower legs since having this infection. The patient was given 1 L NSS bolus and cefepime 2000 mg in the ER for E. coli UTI. Her Alexandra catheter was
exchanged in the ER. The patient denies headache, fever, chills, chest pain, palpitations, cough, shortness breath, abdominal pain, nausea, vomiting, diarrhea. She has past medical history of recent urinary retention January 2025 requiring
chronic indwelling Alexandra catheter, Klebsiella UTI January 2025,Reflex Sympathetic Dystrophy with chronic spasms, myoclonic jerking of lower extremities, Chronic Pain Syndrome, Chronic Opioid Dependence, Breast Cancer s/p Mastectomy 1988, Chronic
RUE Lymphedema, Chronic Back Pain, Hypertension, Anxiety / Depression, Gout, UTIs
Medical History
Past Medical History
Past Medical History: Reports Other
Additional Past Medical History:
Reflex Sympathetic Dystrophy with chronic jerking of lower extremities
Chronic Pain Syndrome
Chronic Opioid Dependence
Breast Cancer s/p Mastectomy
Chronic RUE Lymphedema
Chronic Back Pain
Chronic ambulatory dysfunction
Hypertension
Anxiety / Depression
Gout
Urinary retention/Klebsiella UTI chronic indwelling Alexandra catheter January 2025
Past Surgical History: Reports Other
Additional Past Surgical History:
Right Mastectomy / Axillary Dissection
Cholecystectomy
Appendectomy
T&A
Social History
Tobacco: Non-smoker
Alcohol: None
Drug: None
Personal:
Living: With Family
Family History
Family History: Not pertinent
Allergies / Home Medications
Allergies reflects when Allergies were last updated in [facility].
Home Medications with original date entered in [facility]
Allergy/Medication List:
Allergies
Allergy/AdvReac Type Severity Reaction Status Date / Time
nortriptyline HCl (From Allergy Tongue Verified 02/23/25 18:38
Pamelor) Swelling
Home Medications
acebutolol 200 mg capsule 200 mg PO TID Heart disease/condition 08/18/22
gabapentin 300 mg capsule 600 mg PO HS mild Pain 02/12/23
amitriptyline 100 mg tablet 100 mg PO HS Mental Health/Anxiety 01/12/25
bisacodyl 5 mg tablet,delayed release (Dulcolax (bisacodyl)) 5 mg PO DAILYPRN PRN constiaption 01/12/25
cyanocobalamin (vitamin B-12) 1,000 mcg/mL injection solution 1,000 mcg IM QMONTH Supplement 01/12/25
duloxetine 60 mg capsule,delayed release 60 mg PO BID Mental Health/Anxiety 01/12/25
furosemide 20 mg tablet (Lasix) 20 mg PO DAILY Fluid Retention/Swelling 01/12/25
gabapentin 300 mg capsule 300 mg PO BID NEUROPATHIC PAIN 01/12/25
oxycodone 20 mg tablet,crush resistant,extended release 12 hr (OxyContin) 20 mg PO TID #9 tabs 01/19/25
oxycodone-acetaminophen 10 mg-325 mg tablet (Percocet) 1 tab PO Q6H PRN Breakthrough pain #12 tabs 01/19/25
polyethylene glycol 3350 17 gram oral powder packet 17 g PO BID #30 ea 01/19/25
quetiapine 25 mg tablet 25 mg PO BID #60 tabs 01/19/25
zolpidem 5 mg tablet (Ambien) 5 mg PO HS PRN insomnia #5 tabs 01/19/25
Review of Systems
-
History Source: Patient and Jail
A 12 point ROS was completed and negative except as noted: Yes
Constitutional: Denies Fever or Fatigue
EENT: Reports Other (Blurry vision); Denies Sore Throat
Respiratory: Denies Cough or Trouble Breathing
Cardiac: Denies Chest Pain, Diaphoresis, Palpitations or Syncope
Abdomen/GI: Denies Abdominal Pain, Nausea, Vomiting or Diarrhea
: Reports Urgency and Alexandra
Musculoskeletal: Reports Other (Chronic myoclonic jerks of lower extremities); Denies Joint Pain or Joint Swelling
Skin: Denies Itching or Rash
Neurological: Reports Dizzy and Weakness; Denies Headache
Endocrine: Reports No Symptoms
Hematologic/Lymphatic: Reports No Symptoms
Psych: Reports Calm
Physical Exam
Vital Signs
Vital Signs
Temp Pulse Resp BP Pulse Ox
98.3 F 67 16 112/49 93
02/23/25 18:38 02/23/25 23:00 02/23/25 22:30 02/23/25 23:00 02/23/25 23:14
Physical Exam
General: Conversant; No Fever or Chills
HEENT: NormoCephalic, Anicteric, Moist mucous membranes, PERRLA and [place] Conjunctivae
Respiratory: Clear; No Wheezes, Rales or Rhonchi
Cardiac: S1/S2 and Regular Rhythm; No Murmur, Rub or Peripheral Edema
Breast: Deferred by me
GI: Soft, Non Tender, Non Distended and Normal Bowel Sounds
Rectal: Deferred by Provider
Genito-urinary: Alexandra (New Alexandra catheter was placed in ER)
Musculoskeletal: No Clubbing, No Cyanosis, No Edema and Other (Acute on chronic myoclonic jerks to lower legs due to CRPS)
Skin: Warm and Dry; No Rash or Jaundice
Neuro: AO x 3, No Sensory Deficits and Other (Chronic myoclonic jerks of her lower leg); No Slurred Speech, Facial Droop, Tremors or Sedated
Psych: Calm
Laboratory Results
-
02/23/25 20:04
02/23/25 20:04
Laboratory Results
Lactic Acid 0.7 mmol/L (0.7-2.0) 02/23/25 20:04
Total Bilirubin 0.4 mg/dl (0.2-1.3) 02/23/25 20:04
AST 19 U/L (14-36) 02/23/25 20:04
ALT 11 U/L (0-35) 02/23/25 20:
Alkaline Phosphatase 84 U/L (38-126) 02/23/25 20:04
Impression/Plan
-
Impression/plan:
Admit to TELE
#Hypotension secondary to volume depletion
100/62
IV NSS 100 cc/h
-Hold Acebutolol 200 mg 3 times daily, , furosemide 20 mg daily
- Check orthostatic vitals
- Consult PT/OT/case management
#Recent E. coli UTI
#Chronic indwelling Alexandra catheter due to recent urinary retention January 2025
#History of Klebsiella UTI January 2025
Was on Macrobid changed to Cipro times past 2 days
-Will change to IV cefepime
- Alexandra replaced in ER today 02/24/25
#Dizziness secondary to hypotension
CT head shows severe hyperostosis frontalis interna and calvarial thickening of the frontal bones.
ER MD did discuss this with neurosurgery who notes that chronic finding, thickening of the skull
#CKD 3B
Creat 1.3/bun 23 CrCl 36
Follow BMP
#Chronic anemia-B12 deficiency
Hgb 9.8 appears near baseline
#RSD on chronic oral opiates
#Chronic muscle spasms of lower extremities/myoclonic jerks
-OxyContin 20 mg p.o. 3 times daily, oxycodone/acetaminophen 02/05/2025 every 6 hours as needed
-Continue gabapentin 300 mg a.m., 600 mg at bedtime
#Anxiety
-Continue amitriptyline 100 mg at bedtime
#Gout
- No current meds
#Chronic ambulatory dysfunction 2/ to
#Breast cancer 1998 with right mastectomy
#Insomnia
-Continue Ambien
DVT prophylaxis
Subcu heparin
Full code
[2025-02-23] MEDS: MAXIPIME 2000 MG IV (23:33)
--- NOTE | 2025-02-23 23:56 | W.PN.UPDATE ---
Update Note
Progress Note Update
This is an addendum to the H&P done by Irena Li on 02/23/2025. �Patient seen and examined independently with CANDY VENDOR.
74-year-old female past medical history of obstructive uropathy/urinary retention with chronic Alexandra catheter, prior Klebsiella UTI, CRPS, diffuse muscle spasms/myoclonic jerks, chronic back pain status post back surgery in September 2024, opioid-induced
constipation, hypertension, breast cancer, B12 deficiency, chronic lower extremity edema insomnia, toxic myoclonic jerking from polypharmacy (oxycontin) presenting with low blood pressure at nursing facility. �Blood pressure was 60s over 40s. �She
had dizziness and lightheadedness and blurred vision and double vision. �Dizziness worse with sitting up. �Recently treated for UTI due to symptoms of cloudy urine with urinary urgency prompting urinalysis showing UTI treated with Macrobid and had
positive urine culture for E. coli and was changed to ciprofloxacin yesterday because symptoms are not improving with Macrobid. �
No vomiting or diarrhea or fevers or chills.
She complains of worsening myoclonic jerks in the past few days.
Vital signs normal here.
Labs show stable anemia of 9.8. �Creatinine 1.3. �Urinalysis not impressive although currently on antibiotic. �Recent urine culture shows E. coli pansensitive even to Macrobid.
CT head shows very severe hyperosteosis frontalis interna calvarial thickening of the frontal bones causing mild ventral compression of the anterior frontal lobe gyri.
Patient with hypotension likely secondary to volume depletion in the setting of recent UTI. �IV fluids. �Ceftriaxone. �Alexandra catheter was changed in ER. Hold acebutolol, and Lasix. �Worsening of myoclonic jerks likely due to infection.
Check orthostatic vital signs daily. �ER spoke with neurosurgery due to the CT head findings who stated that she just had a thick skull.
[2025-02-24] VITALS (10 sets, daily range): BP systolic 102–140; BP diastolic 46–68; PULSE 69; O2SAT 93; BMI 25.0
[2025-02-24] MEDS: OXYCONTIN (CONTROLLED RELEASE) 20 MG PO ×4 (00:35→21:13)
[2025-02-24] MEDS: AMBIEN 5 MG PO ×2 (01:26→21:50)
[2025-02-24] MEDS: NSS 1000 IV ×2 (01:26→10:36)
[2025-02-24] MEDS: NEURONTIN 600 MG PO ×2 (01:26→21:14)
--- NOTE | 2025-02-24 02:30 | DOWNTIME ---
There was a [employer] Client Lathe Scalper Operator Downtime on 02/24/2025 from 0100 to 02/24/2025 at 0215. Downtime documentation of patient's care, including medication administrations, has been reconciled in the electronic record per guidelines. Refer to the
patient's paper chart under the miscellaneous tab to see printed paper medication records and downtime forms.
[2025-02-24 07:59] LABS: Hematocrit 31.2 % (37.0-47.0); Hemoglobin 9.6 g/dL (12.0-16.0); Mean Corp Hgb Conc. 30.8 g/dL (33.0-37.0); Mean Corpuscular Volume 88.6 fL (81.0-99.0); Nucleated Red Blood Cells % 0 %; Platelet Count 135 10^3/uL (130-400); Red Cell Dist. Width 15.4 % (11.5-14.5)
[2025-02-24 08:47] LABS: ALT (SGPT) < 10 U/L (0-35); AST (SGOT) 17 U/L (14-36); Albumin 3.4 g/dl (3.5-5.0); Alkaline Phosphatase 72 U/L (38-126); Blood Urea Nitrogen 17 mg/dl (7-17); Calcium 8.1 mg/dl (8.4-10.2); Carbon Dioxide 32 mmol/L (22-30); Chloride 104 mmol/L (98-107); Estimated Creatinine Clearance 47 ml/min; Glucose 85 mg/dl (70-99); Magnesium 2.1 mg/dl (1.6-2.3); Potassium 4.0 mmol/L (3.5-5.1); Sodium 139 mmol/L (135-145); Total Protein 5.7 g/dl (6.3-8.2); eGFR 58.75
[2025-02-24] MEDS: ROXICODONE 10 MG PO (09:21)
[2025-02-24] MEDS: MIRALAX PO ×3 (09:22→20:02)
[2025-02-24] MEDS: NEURONTIN 300 MG PO ×2 (09:22→17:07)
[2025-02-24] MEDS: HEPARIN 5000 UNITS SC ×2 (09:23→19:50)
[2025-02-24] MEDS: SEROQUEL PO (09:27)
[2025-02-24] MEDS: STERILE WATER FOR INJECTION 10 ML IV ×2 (10:25→21:14)
[2025-02-24] MEDS: MAXIPIME 1000 MG IV ×2 (10:25→21:14)
[2025-02-24] MEDS: CYMBALTA DELAYED RELEASE 60 MG PO ×2 (10:25→19:50)
[2025-02-24 11:42] LABS: Hepatitis C Antibody Negative (Negative)
--- NOTE | 2025-02-24 13:42 | W.PN.HOSP.TC ---
Today's Communication/Plan
-
See plan
Assessment / Plan
Assessment / Plan
Impression:
Presented from nursing facility with hypotension responding to IV fluids
Dehydration
Acute kidney injury
Recently treated for catheter associated urinary tract infection
Conditions prior to admission
Chronic urinary retention with indwelling Alexandra catheter.
Complex regional pain syndrome with opiate dependence.
History of opiate induced constipation.
Recent lower back surgery.
Essential hypertension per
Dyslipidemia.
Chronic lower extremity edema.
History of COVID-19 infection.
Obesity due to excess of calories with BMI of 25
Plan:
Transient hypotension with acute kidney injury secondary to dehydration.
Improving with IV fluids and off loop diuretics.
BP stable.
Creatinine trending down.
Observe off IV fluids
Monitor oral intake.
Patient with no prior history of CHF. At this point no clear indication for loop diuretics (states had been taking that for lower extremity edema)
Monitor BP trend. Consider to reinstate beta-ricky/acebutolol
Recent catheter associated UTI.
Doubt currently has urinary tract infection
Afebrile with normal white count.
Alexandra catheter exchanged in ED
Urine cultures pending.
Blood cultures pending.
Initiated empirically on cefepime, will continue pending culture data
Complex regional pain syndrome with opiate dependence.
Continue preadmission regimen including amitriptyline, gabapentin, OxyContin/Percocet
Continue bowel regimen
Monitor for oversedation
Continue Ambien at bedtime with caution for oversedation
PT assessment with discharge planning
Anticipated Discharge: 24 - 48 hours
Subjective/Interval History
-
Date of Service: February 24, 2025
Objective Data
-
Labs:
Laboratory Results
02/24/25
07:28
WBC 4.8
Hgb 9.6 L
Hct 31.2 L
Plt Count 135 D
Sodium 139
Potassium 4.0
Chloride 104
Carbon Dioxide 32 H
BUN 17
Creatinine 1.0
Glucose 85
Calcium 8.1 L
Total Bilirubin 0.4
AST 17
ALT < 10
Alkaline Phosphatase 72
Vital Signs:
Vital Signs
Temp Pulse Resp BP Pulse Ox
98.2 F 69 20 114/54 92
02/24/25 11:11 02/24/25 11:11 02/24/25 11:11 02/24/25 11:11 02/24/25 11:11
I&O
02/23/25 02/24/25 02/25/25
06:59 06:59 06:59
Intake Total 480 / 480
Balance 480 / 480
Physical Exam
-
General: Well Developed and No Apparent Distress
HEENT: Normocephalic, Atraumatic and Moist Mucous Membranes
Respiratory: Clear to Auscultation
Cardiac: Regular Rhythm and S1/S2; Negative Murmur, Rub or Gallop
GI: Soft, Nontender, Nondistended and Normal Bowel Sounds; Negative Organomegaly
Rectal: Deferred by Provider
Genito-urinary: Alexandra
Musculoskeletal: No Clubbing, No Cyanosis and No Edema
Skin: Negative Rash
Neuro: Nonfocal/Grossly Intact
--- NOTE | 2025-02-24 14:21 | CM ---
Addendum entered by Marta Cardoza 02/24/25 14:42:
confirmed with [facility], paying for bed hold.
Original Note:
CM reviewed chart, patient seen bedside, initial assessment completed.
Patient admitted from [facility], awaiting to hear from SNF if patient is paying for bed hold.
Patient reports prior to SNF, resides at home with , two level, two steps to enter.
Patient reports at [facility] she was mostly WC bound, assist of two.
Patient would like to return home as is at home dying of cancer- patient aware she still needs rehab and agreeable to return, referral placed to [facility].
Care ongoing, CM will continue to follow for all d/c needs.
Plan; Return to [facility] pending bed availability, awaiting to confirm if patient/family paying for bed hold
[2025-02-24] MEDS: SEROQUEL 25 MG PO (19:50)
[2025-02-24] MEDS: ELAVIL 100 MG PO (21:13)
[2025-02-25] VITALS (7 sets, daily range): BP systolic 110–141; BP diastolic 56–76; PULSE 70–77
[2025-02-25 08:53] LABS: Hematocrit 32.0 % (37.0-47.0); Hemoglobin 9.5 g/dL (12.0-16.0); Mean Corp Hgb Conc. 29.7 g/dL (33.0-37.0); Mean Corpuscular Volume 88.9 fL (81.0-99.0); Nucleated Red Blood Cells % 0 %; Platelet Count 166 10^3/uL (130-400); Red Cell Dist. Width 15.7 % (11.5-14.5)
[2025-02-25 09:24] LABS: ALT (SGPT) < 10 U/L (0-35); AST (SGOT) 18 U/L (14-36); Albumin 3.7 g/dl (3.5-5.0); Alkaline Phosphatase 77 U/L (38-126); Blood Urea Nitrogen 14 mg/dl (7-17); Calcium 8.4 mg/dl (8.4-10.2); Carbon Dioxide 26 mmol/L (22-30); Chloride 106 mmol/L (98-107); Estimated Creatinine Clearance 59 ml/min; Glucose 85 mg/dl (70-99); Sodium 136 mmol/L (135-145); Total Protein 6.4 g/dl (6.3-8.2); eGFR > 60.00
[2025-02-25] MEDS: SEROQUEL 25 MG PO ×2 (10:14→20:48)
[2025-02-25] MEDS: CYMBALTA DELAYED RELEASE 60 MG PO ×2 (10:14→20:48)
[2025-02-25] MEDS: MIRALAX 17 GRAMS PO (10:14)
[2025-02-25] MEDS: DULCOLAX 5 MG PO (10:16)
[2025-02-25] MEDS: NEURONTIN 300 MG PO ×2 (10:16→17:12)
[2025-02-25] MEDS: HEPARIN 5000 UNITS SC ×2 (10:16→20:48)
[2025-02-25] MEDS: OXYCONTIN (CONTROLLED RELEASE) 20 MG PO ×3 (10:16→21:59)
[2025-02-25 10:22] LABS: Potassium 4.2 mmol/L (3.5-5.1)
[2025-02-25] MEDS: DULCOLAX 10 MG RECTAL (12:31)
--- NOTE | 2025-02-25 13:54 | CON.NEURO4 ---
Addendum entered and electronically signed by Gerson Nelson MD 02/25/25 14:30:
Studies reviewed.
I have personally examined the patient. I reviewed and agree with the ENGINE ASSEMBLER's Note.
My addenda:
Awake, alert, interactive. No acute distress.
Speech intact.
Crescendo decrescendo movements proximally in bilateral lower extremities variable and not present until attention is drawn to them. Distractible. Medium to high amplitude.
Extra-ocular movements grossly intact.
Facial movements full and symmetric. Hearing intact to normal conversational volume.
Normal UE movements bilaterally.
Neck: full ROM.
Chest: no dyspnea
Heart: no JVD
Ext: (-) Clubbing, (-) Cyanosis, (-) Edema
IMPRESSIONS/RECOMMENDATIONS:
Involuntary movements of bilateral upper and lower extremities which appear variable; diagnosis functional neurologic disorder
Restarted vitamin B12 supplementation
Advanced quetiapine to dosing of 25 mg twice a day although this will not remediate the patient's movement disorder as it is psychogenic in nature
PT/OT evaluations
fall precautions
cognitive behavior therapy as outpatient with treatment by either a neuropsychologist or psychologist
We will follow as needed.
Original Note:
Consultation - Neurology 4
-
CONSULTING PHYSICIAN: Gerson Nelson MD
REFERRING PHYSICIAN: Hospitalists/Dr. Garcia
DICTATED BY: WILL Dumont
DATE/TIME OF REQUEST: 02/25/25
DATE/TIME OF CONSULTATION: 02/25/25
Reason for Consultation: Abnormal leg movements
History of Present Illness:
This is a 74-year-old female who has presented to the hospital on 02/23/25 with report of hypotension. Patient was previously evaluated by our inpatient Neurology service in 01/2025 for report of muscle spasms.
From previous evaluation by Neurology WILL Dickinson on 01/12/25:
'74-year-old female with past medical history of hypertension, complex regional pain syndrome, recent back surgery at [facility] who [facility] to [facility] on 01/12/2025 with her daughter for evaluation of 'muscle spasms' and
lethargy. Patient was seen in our ED back in August s/p fall and again in September for persistent back pain. At that time, she had not been able to walk like she usually does with a walker because of pain. She also had a Branham catheter in. She denied any
saddle anesthesia. The patient is a nurse. She denied any lower extremity numbness or tingling. Denied any lower extremity weakness. No evidence of cauda equina syndrome and was discharged. She had a fall on 09/15 and presented to [place] [facility] with severe lower back pain, accompanied by urinary retention and constipation. An MRI performed in the ER revealed spinal stenosis and neural foraminal narrowing. On 09/22, she underwent a T12-L2 decompression and fusion. Her
postoperative course was complicated by hypertension, requiring ICU admission and treatment with a Cardene drip. Pain management included use of Tylenol, Dilaudid, Oxycodone, and Valium. She declined the initial transfer to the assigned skilled
nursing facility and was subsequently re-admitted for a UTI and treated with oral Cefdinir. She was discharged and has since continued rehabilitation, first at [place] and currently at [facility].
Talking with patient and daughter there was a lot of confusion and inconsistency with onset of symptoms. Initially patient told us that her spasms were new occurring today. Then she told us she had full body spasms a year ago and then it went away
and was thought to be due to her B12 deficiency. Upon further questioning, she stated she started having spasms to bilateral arms, legs and lumbar back about 2-3 weeks ago. Daughter at bedside and tells us today they went to see her pain management
doctor and the patient was found was slumped over in chair difficult to arouse. Daughter assisted her to bathroom and the patient started having high amplitude irregular movements of arms and legs at around 1:30pm. In the ED, patient hypotensive
with initial BP 89/50 urinary retention was noted. She tells us she has not voided since 9pm last night. In ED bladder scan showed 280cc urine and branham placed with 250cc urine output. Her B12 last month was 182, she got her injection on January
. She states she was on flexeril about a week ago for about 5 days but found this ineffective and was discontinued. A month ago she was started on Cymbalta 60 mg BID for her spasms.
Currently the patient is experiences lower back pain which is hindering her exam and movement. She is having variable intermittent spasms. Denies lower extremity sensation changes. It is unclear if she is having lower extremity weakness and exam is
limited by pain.'
Patient reports that her legs have been having 'myoclonic' movements again and they have been severely painful with a cramping sensation in bilateral feet up to her knees. Currently, she is not experiencing any abnormal movements, only discomfort.
She denies any headache, dizziness, vision changes, speech/swallow difficultly, numbness, and weakness. She has not pursued cognitive behavior therapy as previously suggested, she does not recall the recommendation. Quetiapine 25mg twice a day was
initiated on prior admission to help reduce the movements.
Past Medical History: HTN, breast cancer, complex regional pain syndrome, vitamin B12 deficiency, chronic opioid dependence, anxiety, depression, gout, RUE lymphedema, indwelling branham catheter
Surgical History: Back surgery, mastectomy, cholecystectomy, appendectomy, tonsillectomy
Family History: Reviewed and noncontributory.
Social History: Denies tobacco, alcohol, and illicit drug use.
Allergies: Nortriptyline.
Home Medications: See below.
Review of Symptoms:
Patient denies any fever, headache, chest pain, shortness of breath, GI or symptoms.
�Per the HPI.�All systems are reviewed negative except above.
Physical Exam:
The patient is afebrile, abdomen is nondistended, breathing is unlabored, skin is warm and dry.
Neurologic Examination:
The patient is awake, alert and oriented x 3. She is able to follow commands and answer questions appropriately. There is no aphasia or dysarthria. On cranial nerve assessment, pupils are 3 mm bilateral, round and reactive to light and
accommodation. Visual [place] are full. Extraocular movements are intact. There is no facial asymmetry. Hearing is intact bilaterally to normal conversation volume. Motor strengths are 5/5 bilateral upper and 2/5 bilateral lower extremities on
medical research [place] scale. There is no involuntary movement noted.
Lab Results: See below.
Neuro Imaging:
1. 02/23/25: VERY SEVERE HYPEROSTOSIS FRONTALIS INTERNA and CALVARIAL THICKENING of the FRONTAL BONES causing mild ventral compression on the anterior frontal lobe gyri. Mild white matter leukoaraiosis. No CT evidence for acute intracranial
hemorrhage or transcortical infarct.
Differentials for the patient's presentation include:
1. Bilateral lower extremity discomfort/cramping sensation; possibly related to ferritin level of 11.
2. Currently there are no abnormal body movements occurring; as previously discussed with patient, these are likely psychogenic in nature.
Patient has the following risk factors for their symptoms: Low ferritin level
Recommendations:
-IV iron x1 now. Initiate ferrous sulfate 325mg nightly.
-Outpatient cognitive behavioral therapy.
Discussed patient care with: Dr. Nelson, the patient
Vital Signs and Labs
-
Vital Signs and Labs:
Vital Signs
Temp Pulse Resp BP Pulse Ox
99.0 F 75 17 141/76 96
02/25/25 11:43 02/25/25 11:43 02/25/25 11:43 02/25/25 11:43 02/25/25 11:43
Lab Results
02/25/25 07:28
02/25/25 07:28
Sodium 136 mmol/L (135-145) 02/25/25 07:28
Potassium 4.2 mmol/L (3.5-5.1) 02/25/25 07:28
BUN 14 mg/dl (7-17) 02/25/25 07:28
Glucose 85 mg/dl (70-99) 02/25/25 07:28
Calcium 8.4 mg/dl (8.4-10.2) 02/25/25 07:28
Medications
-
Active Medications
Generic Name Dose Route Start Last Admin
Trade Name Freq PRN Reason Stop Dose Admin
Acetaminophen 325 mg 02/24/25 00:22
Acetaminophen 325 Mg Tablet PO 03/24/25 00:21
Q6HPRN PRN
Breakthrough pain
Amitriptyline HCl 100 mg 02/24/25 22:00 02/24/25 21:13
Amitriptyline 100 Mg Tablet PO 03/24/25 21:59 100 mg
HS KIM Administration
Bisacodyl 5 mg 02/24/25 00:07 02/25/25 10:16
Bisacodyl 5 Mg Enteric Coated Tablet PO 03/24/25 00:06 5 mg
DAILYPRN PRN Administration
constipation
Docusate Sodium 100 mg 02/25/25 13:24
Docusate Sodium 100 Mg Capsule PO 03/25/25 13:23
BIDPRN PRN
no BM > 24 hours
Duloxetine HCl 60 mg 02/24/25 08:00 02/25/25 10:14
Duloxetine Delayed Release 60 Mg Capsule PO 03/24/25 07:59 60 mg
BID KIM Administration
Ferrous Sulfate 325 mg 02/25/25 22:00
Ferrous Sulfate 325 Mg Tablet PO 03/25/25 21:59
HS KIM
Gabapentin 600 mg 02/24/25 22:00 02/24/25 21:14
Gabapentin 300 Mg Capsule PO 03/24/25 21:59 600 mg
HS KIM Administration
Gabapentin 300 mg 02/24/25 08:00 02/25/25 10:16
Gabapentin 300 Mg Capsule PO 03/24/25 07:59 300 mg
BID@0800,1600 KIM Administration
Heparin Sodium 5,000 units 02/24/25 08:00 02/25/25 10:16
Heparin 5,000 Units/Ml 1 Ml Vial SC 03/24/25 07:59 5,000 units
Q12 KIM Administration
Ferric Sodium Gluconate 110 mls @ 110 mls/hr 02/25/25 14:00
Complex 125 mg/ Sodium IV 02/25/25 14:59
Chloride ONCE@1400 ONE
Oxycodone HCl 20 mg 02/24/25 08:00 02/25/25 10:16
Oxycontin 20 Mg Controlled Release Tablet PO 03/10/25 07:59 20 mg
TID KIM Administration
Oxycodone HCl 10 mg 02/24/25 09:11 02/24/25 09:21
Oxycodone 5 Mg Regular Release Tablet PO 03/10/25 09:10 10 mg
Q6HPRN PRN Administration
Breakthrough pain
Polyethylene Glycol 17 grams 02/24/25 08:00 02/25/25 10:14
Polyethylene Glycol Powder 17 Grams Packet PO 03/24/25 07:59 17 grams
BID KIM Administration
Quetiapine Fumarate 25 mg 02/24/25 08:00 02/25/25 10:14
Quetiapine 25 Mg Tablet PO 03/24/25 07:59 25 mg
BID KIM Administration
Sodium Chloride 0 flush 02/24/25 01:00
Sodium Chloride 0.9% (Flush) Syringe IV 03/24/25 00:59
PER PROTOCOL KIM
Zolpidem Tartrate 5 mg 02/24/25 00:07 02/24/25 21:50
Zolpidem Tartrate 5 Mg Tablet PO 03/24/25 00:06 5 mg
HSPRN PRN Administration
insomnia
Home Medications
�Medication �Instructions �Recorded
acebutolol 200 mg capsule 200 mg PO TID Heart 08/18/22
disease/condition
gabapentin 300 mg capsule 600 mg PO HS mild Pain 02/12/23
amitriptyline 100 mg tablet 100 mg PO HS Mental Health/Anxiety 01/12/25
bisacodyl 5 mg tablet,delayed 5 mg PO DAILYPRN PRN constipation 01/12/25
release (Dulcolax (bisacodyl))
cyanocobalamin (vitamin B-12) 1,000 mcg IM QMONTH Supplement 01/12/25
1,000 mcg/mL injection solution
duloxetine 60 mg capsule,delayed 60 mg PO BID Mental Health/Anxiety 01/12/25
release
furosemide 20 mg tablet (Lasix) 20 mg PO DAILY Fluid 01/12/25
Retention/Swelling
gabapentin 300 mg capsule 300 mg PO BID NEUROPATHIC PAIN 01/12/25
oxycodone 20 mg tablet,crush 20 mg PO TID #9 tabs 01/19/25
resistant,extended release 12 hr
(OxyContin)
oxycodone-acetaminophen 10 mg-325 1 tab PO Q6H PRN Breakthrough pain 01/19/25
mg tablet (Percocet) #12 tabs
polyethylene glycol 3350 17 gram 17 g PO BID #30 ea 01/19/25
oral powder packet
quetiapine 25 mg tablet 25 mg PO BID #60 tabs 01/19/25
zolpidem 5 mg tablet (Ambien) 5 mg PO HS PRN insomnia #5 tabs 01/19/25
--- NOTE | 2025-02-25 14:01 | W.PN.HOSP.TC ---
Today's Communication/Plan
-
Observe for antibiotics
Neurology evaluation
Discharge planing
Assessment / Plan
Assessment / Plan
Impression:
Presented from nursing facility with hypotension responding to IV fluids
Dehydration
Acute kidney injury
Recently treated for catheter associated urinary tract infection
Conditions prior to admission
Chronic urinary retention with indwelling Alexandra catheter.
Complex regional pain syndrome with opiate dependence.
History of opiate induced constipation.
Recent lower back surgery.
Essential hypertension per
Dyslipidemia.
Chronic lower extremity edema.
History of COVID-19 infection.
Obesity due to excess of calories with BMI of 25
Plan:
Transient hypotension with acute kidney injury secondary to dehydration.
Improving with IV fluids and off loop diuretics.
BP stable.
Creatinine trending down.
Observe off IV fluids
Monitor oral intake.
Patient with no prior history of CHF. At this point no clear indication for loop diuretics (states had been taking that for lower extremity edema)
Monitor BP trend. Consider to reinstate beta-ricky/acebutolol
Recent catheter associated UTI.
Doubt currently has urinary tract infection
Afebrile with normal white count.
Alexandra catheter exchanged in ED
Urine cultures negative.
Observe off antibiotics. Cefepime discontinued on 02/25
Chronic pain with ambulatory dysfunction likely multifactorial due to multilevel DJD/status post extensive lumbar spine surgery 09/27
Complex regional pain syndrome with opiate dependence.
Continue preadmission regimen including amitriptyline, gabapentin, OxyContin/Percocet
Continue bowel regimen
Monitor for oversedation
Patient requested neurology evaluation
Continue Ambien at bedtime with caution for oversedation
PT assessment with discharge planning
Anticipated Discharge: 24 - 48 hours
Subjective/Interval History
-
Date of Service: February 25, 2025
Objective Data
-
Labs:
Laboratory Results
10/23/25
07:28
WBC 4.5 L
Hgb 9.5 L
Hct 32.0 L
Plt Count 166 D
Sodium 136
Potassium 4.2
Chloride 106
Carbon Dioxide 26
BUN 14
Creatinine 0.8
Glucose 85
Calcium 8.4
Total Bilirubin 0.4
AST 18
ALT < 10
Alkaline Phosphatase 77
Vital Signs:
Vital Signs
Temp Pulse Resp BP Pulse Ox
99.0 F 75 17 141/76 96
02/25/25 11:43 02/25/25 11:43 02/25/25 11:43 02/25/25 11:43 02/25/25 11:43
I&O
02/24/25 02/25/25 02/26/25
06:59 06:59 06:59
Intake Total 480 / 480 1800 / 1800
Output Total 1250 / 1250
Balance 480 / 480 550 / 550
Physical Exam
-
General: Well Developed and No Apparent Distress
HEENT: Normocephalic, Atraumatic and Moist Mucous Membranes
Respiratory: Clear to Auscultation
Cardiac: Regular Rhythm and S1/S2; Negative Murmur, Rub or Gallop
GI: Soft, Nontender, Nondistended and Normal Bowel Sounds; Negative Organomegaly
Rectal: Deferred by Provider
Musculoskeletal: No Clubbing, No Cyanosis and No Edema
Skin: Negative Rash
Neuro: Awake, Alert, Oriented, AO x 3 and Other (Intact sensory bilateral including lower extremities with decreased strength bilaterally at lower extremities with limited hip flexion, possibly secondary to back pain)
[2025-02-25] MEDS: ROXICODONE 10 MG PO (14:42)
[2025-02-25] MEDS: FERRLECIT 110 MG IV (14:43)
--- NOTE | 2025-02-25 17:28 | CM ---
Monitoring pt off ABX. PT/OT rec is jail.
Plan: return to [facility] when stable
[2025-02-25] MEDS: MIRALAX PO (20:50)
[2025-02-25] MEDS: NEURONTIN 600 MG PO (21:58)
[2025-02-25] MEDS: ELAVIL 100 MG PO (21:58)
[2025-02-25] MEDS: FEOSOL 325 MG PO (21:59)
[2025-02-25] MEDS: AMBIEN 5 MG PO (22:05)
[2025-02-26] VITALS (7 sets, daily range): BP systolic 113–143; BP diastolic 58–77; PULSE 63–80; O2SAT 97
[2025-02-26] MEDS: MIRALAX 17 GRAMS PO (07:57)
[2025-02-26] MEDS: NEURONTIN 300 MG PO ×2 (07:57→15:30)
[2025-02-26] MEDS: SEROQUEL 25 MG PO ×2 (07:58→18:39)
[2025-02-26] MEDS: CYMBALTA DELAYED RELEASE 60 MG PO ×2 (07:58→18:39)
[2025-02-26] MEDS: OXYCONTIN (CONTROLLED RELEASE) 20 MG PO ×2 (07:58→15:30)
[2025-02-26] MEDS: HEPARIN 5000 UNITS SC (07:58)
--- NOTE | 2025-02-26 13:15 | W.DS.TRANS ---
DC Summary - [place]umper
-
Discharge Instructions:
Discharge Diagnosis/Procedures Dehydration
DANYEL
Diet Regular
Instructions:
Stand-Alone Forms:
Changes to Home Medications: Yes
Discharge Medications:
DC Medications w/original date entered in [facility]
gabapentin 300 mg capsule 600 mg PO HS mild Pain 02/12/23
amitriptyline 100 mg tablet 100 mg PO HS Mental Health/Anxiety 01/12/25
bisacodyl 5 mg tablet,delayed release (Dulcolax (bisacodyl)) 5 mg PO DAILYPRN PRN constipation 01/12/25
cyanocobalamin (vitamin B-12) 1,000 mcg/mL injection solution 1,000 mcg IM QMONTH Supplement 01/12/25
duloxetine 60 mg capsule,delayed release 60 mg PO BID Mental Health/Anxiety 01/12/25
gabapentin 300 mg capsule 300 mg PO BID NEUROPATHIC PAIN 01/12/25
polyethylene glycol 3350 17 gram oral powder packet 17 g PO BID #30 ea 01/19/25
quetiapine 25 mg tablet 25 mg PO BID #60 tabs 01/19/25
zolpidem 5 mg tablet (Ambien) 5 mg PO HS PRN insomnia #5 tabs 01/19/25
oxycodone 20 mg tablet,crush resistant,extended release 12 hr (OxyContin) 20 mg PO TID #9 tabs 02/26/25
oxycodone-acetaminophen 10 mg-325 mg tablet (Percocet) 1 tab PO Q6H PRN Breakthrough pain #12 tabs 02/26/25
Home Medication Changes
Lasix and Acebutolol stopped
Pending Results: No
--- NOTE | 2025-02-26 13:55 | CM ---
Addendum entered by Marta Cardoza 02/26/25 16:24:
Patient scheduled for 8:00 p.m. ambulance transport, [facility] aware.
Please fax upon d/c to [facility]
Original Note:
CM reviewed chart, patient seen bedside with daughter, for d/c today.
Plan return to [facility], patient will require ambulance transport.
IMM verbally reviewed, provided with copy, placed in chart.
Updates to [facility] with d/c plan.
CM will continue to follow.
Plan; return to [facility], ambulance transport
[facility]
Report: [phone]
--- NOTE | 2025-02-26 21:04 | PTCARENOTE ---
Discharged to [facility] via ambulance with sujatha. Nasrin emptied prior to d/c. IV removed on dayshift and report called to [place] on dayshift.
== END 2025-02-26 21:06 | DRG 315 ==
LOC: 1 ACUTE 23:56
PROVIDERS: Clinical Nurse Specialist Family Health; ADMITTING PHYSICIAN Hospitalist; ATTENDING PHYSICIAN Internal Medicine; CONSULT PHYSICIAN Psychiatry & Neurology Neurology; EMERGENCY PHYSICIAN Student in an Organized Health Care Education/Training Program
DX: I95.89 Other hypotension (principal); F11.20 Opioid dependence, uncomplicated; N17.9 Acute kidney failure, unspecified; G90.511 Complex regional pain syndrome I of right upper limb; N39.0 Urinary tract infection, site not specified; E86.0 Dehydration; I12.9 Hypertensive chronic kidney disease with stage 1 through stage 4 chronic kidney disease, or unspecified chronic kidney disease; G25.3 Myoclonus; N18.32 Chronic kidney disease, stage 3b; B96.20 Unspecified Escherichia coli [E. coli] as the cause of diseases classified elsewhere; G89.4 Chronic pain syndrome; F41.9 Anxiety disorder, unspecified; I89.0 Lymphedema, not elsewhere classified; F32.A Depression, unspecified; M10.9 Gout, unspecified; R26.2 Difficulty in walking, not elsewhere classified; D64.9 Anemia, unspecified; E53.8 Deficiency of other specified B group vitamins; G47.00 Insomnia, unspecified; F44.4 Conversion disorder with motor symptom or deficit; E78.5 Hyperlipidemia, unspecified; Z60.2 Problems related to living alone; Z85.3 Personal history of malignant neoplasm of breast; Z87.440 Personal history of urinary (tract) infections; Z90.49 Acquired absence of other specified parts of digestive tract; Z86.16 Personal history of COVID-19; Z79.899 Other long term (current) drug therapy; Z90.11 Acquired absence of right breast and nipple; Z88.8 Allergy status to other drugs, medicaments and biological substances
CPT/HCPCS: 51702; 70450; 80053; 81003; 81015; 83605; 83735; 85025; 86803; 87040; 87070; 87086; 93005; 96361; 96374; 97163; 97167; 97530; 97535; 99285; J2916

== ENCOUNTER → 2025-03-13 05:15 | Outpatient (REF) | payer MEDICARE, SELFPAY ==
[2025-03-13 09:44] LABS: Urine Character Clear (Clear)
[2025-03-13 10:55] LABS: Urine Squamous Cell 16-20 /LPF (Few)
[2025-03-13 10:56] LABS: Urine White Cell 26-30 /HPF (0-5)
== END ==
LOC: OLABN 05:15
PROVIDERS: ATTENDING PHYSICIAN Student in an Organized Health Care Education/Training Program
DX: R10.8A3 Suprapubic tenderness (principal); R33.8 Other retention of urine
CPT/HCPCS: 81003; 81015; 87077; 87086